=== PATIENT | female | born 2005 | race Caucasian/White ===

== ENCOUNTER 2024-12-14 21:05 | Inpatient (IN) | payer OTHER, SELFPAY ==
--- NOTE | 2024-12-14 20:12 | PCM.HP.OB ---
HPI - General General Date of Admission: 12/14/24 HPI Narrative ASHLEE MORENO, is a 19 F at 37 weeks gestation who presents for scheduled induction of labor for severe IUGR. EFW 2% AC <1%. ERLIN normal. Maternal Data Information DEYANIRA Calculator Estimated Delivery Date Method Current WG Current Estimate 01/04/25 Manual 37w 0d PFSH PFSH Medical History (Updated 12/14/24 @ 20:19 by Flor Garcia CNM) Wears glasses Anxiety Gastric reflux Non-smoker Cardiology follow-up encounter History of irregular heartbeat Tachycardia [place] Emotional problems Allergies Home Medications ?Medication ?Instructions ?Recorded ?Last Taken ?Type famotidine 20 mg tablet 20 mg PO QDAY 03/20/24 05/06/24 History sertraline 50 mg tablet 50 mg PO QDAY 03/20/24 Unknown History Allergy/AdvReac Type Severity Reaction Status Date / Time Sulfa (Sulfonamide Allergy Hives Verified 05/08/24 12:06 Antibiotics) Family History (Updated 03/20/24 @ 07:49 by Sherri Mccabe) Mother Depression Surgical History (Updated 05/08/24 @ 12:12 by Svitlana Brady) Hx of wisdom tooth extraction Social History (Updated 03/20/24 @ 08:48 by Sherri Mccabe) household members: spouse current occupational status: unemployed Smoking Status: Never smoker alcohol intake: never substance use type: does not use ROS Eyes Eyes: Denies blurry vision, change in vision or spots in vision ENT HEENT: Denies dizziness or headache(s) Cardiovascular Cardiovascular: Denies abdominal pain, chest pain or dyspnea Respiratory/Chest Respiratory/Chest: Denies cough, dyspnea, shortness of breath at rest or shortness of breath with exertion Gastrointestinal Gastrointestinal: Denies abdominal pain, diarrhea or vomiting Genitourinary Genitourinary: Denies change in urinary stream, difficulty urinating or dysuria Musculoskeletal Musculoskeletal: Reports none Integumentary Integumentary: Denies rash Neurologic Neurologic: Denies dizziness, headache(s), memory loss or weakness Psychiatric Psychiatric: Reports none Physical Exam Const alert, oriented x3 and no apparent distress General Appearance: cooperative Orientation / Consciousness: awake Exam Limitations: no limitations HEENT normocephalic Head and Scalp: normal to inspection Eyes General Eye: normal appearance of both eyes Neck full ROM and no lymphadenopathy Lymph Lymphatic: no lymphadenopathy noted Chest inspection of chest normal Resp normal respiratory effort, normal air movement and clear to auscultation bilaterally Effort and Inspection: able to speak in complete sentences and symmetric chest movement Cardio regular rate and regular rhythm GI normal to inspection, nondistended, normoactive bowel sounds Manual OB Exam: presentation cephalic Back/Spine normal ROM Extremity full ROM and no calf tenderness Skin no rashes or lesions noted General Skin Exam: no breakdown Neuro oriented x3 and CN's II-XII intact bilaterally Psych mental status grossly normal and thought process normal Labs Labs Labs: No Data to Display Assessment & Plan (1) GBS bacteriuria: (2) 37 weeks gestation of : (3) Encounter for induction of labor: (4) IUGR, : COMMENT: EFW 2% and AC <1% (5) Anxiety and depression: (6) Rh negative status during : PLAN: Plan CE - Closed / posterior Cytotec 25 mcg PO every 4 hours x 6 doses total GBS positive- PCN 5 million units IV x 1 dose followed by PCN 3 million units IV every [address] Neal notified of admission and is collaborating physician
[2024-12-14 21:14] VITALS: TEMP 36.8
[2024-12-14 21:22] VITALS: BP 142/84; PULSE 53; O2SAT 97
[2024-12-14 21:40] VITALS: BP 139/85; PULSE 47
[2024-12-14 22:06] LABS: Hematocrit 35.6 % (37-47); Hemoglobin 12.9 g/dL (12.0-15.0); Immature Granulocytes Count 0.030 X10^3/uL (0.0-0.0); Mean Corp Hgb Conc 36.2 g/dL (32-36); Mean Corpuscular Volume 88.3 fL (81-99); Mean Platelet Vol. 11.2 fl (6.2-12.0); NRBC Flagged by Analyzer 0 % (0-5); Platelet Count 215 K/mm3 (150-450); RBC Distribution Width CV 12.4 % (11.6-14.6); RBC Distribution Width SD 39.8 fl (35.1-43.9); Red Blood Count 4.03 M/mm3 (4.2-5.4); White Blood Count 9.2 K/mm3 (4.4-11.0)
[2024-12-14 22:09] VITALS: BMI 23.1
[2024-12-14 22:34] LABS: Syphilis Antibodies Nonreactive (Nonreactive)
--- OUTSIDE RECORDS SUMMARY | 2024-12-14 22:37 | XMS RPT_ITS | CCD ---
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 Name Role Phone Friend, Rohan Attending Unavailable Miedel, Lynda Primary Care Unavailable Miedel, Lynda Referring Unavailable Friend, Rohan Attending Unavailable Miedel, Lynda Primary Care Unavailable Miedel, Lynda Referring Unavailable Unavailable Primary Care Provider Unavaillena e HAURY, SUHAIL Referring Unavailable WISWELL, TIM Attending Unavailable WISWELL, TIM Referring Unavailable HAURY, SUHAIL Attending Unavailable HAURY, SUHAIL Referring Unavailable HAURY, SUHAIL Attending Unavailable HAURY, SUHAIL Referring Unavailable WISWELL, TIM Attending Unavailable HAURY, SUHAIL Referring Unavailable HAURY, SUHAIL Referring Unavailable HAURY, SUHAIL Referring Unavailable YISEL PUGA Attending Unavailable HAURY, SUHAIL Referring Unavailable GENEVIEVE MADDEN Attending Unavailable RADHA ELY Attending Unavailable HAURY, SUHAIL Attending Unavailable WISWELL, TIM Referring Unavailable Allergies Allergy Classification Reported Allergen(s) Allergy Type Date of Onset Reaction(s) Facility (2 sources) Sulfonamides (Antibiotic); Translations: [SULFA (SULFONAMIDE ANTIBIOTICS)] Drug allergy (disorder) 4 [facility] Repository (14 sources) Sulfonamides (Antibiotic) Drug Intolerance 4 [facility] Medications Current Medications Medication Drug Class(es) Dates Sig (Normalized) Sig (Original) famotidine 20 mg oral tablet (13 sources) Histamine-2 Receptor Antagonist Start: 05-11-2024 take 1 tablet by mouth every twelve hours as needed famotidine (PEPCID) 20 mg tablet Take 20 mg by mouth two times a day as needed. 05/11/2024 Active PNV no.95/ferrous fum/folic ac ( ORAL) (14 sources) PNV no.95/ferrou s fum/folic ac ( ORAL) Take by mouth. Active sertraline 50 mg oral tablet (14 sources) Serotonin Reuptake Inhibitor take 1 tablet by mouth once daily sertraline (ZOLOFT) 50 mg tablet Take 50 mg by mouth once daily. Active Completed/Discontinued Medications Medication Drug Class(es) Dates Sig (Normalized) Sig (Original) aspirin 81 mg delayed release oral tablet (6 sources) Platelet Aggregation Inhibitor, Nonsteroidal Anti-inflammatory Drug Start: 06-05-2024 End: 10-12-2024 take 1 tablet by mouth once daily aspirin, enteric coated (ECOTRIN LOW STRENGTH) 81 mg EC tablet Indications: with uncertain dates in first trimester (HCC) Take 1 tablet by mouth once daily. 90 tablet 3 06/05/2024 10/12/2024 Discontinued Problems Active Problems Problem Classification Problem Date Documented Da te Episodic/Chronic Esophageal disorders (1 source) Gastro-esophageal reflux disease without esophagitis; Translations: [Gastro-esophageal reflux disease without esophagitis] Onset: 03-30-2024 Chronic Genitourinary symptoms and ill-defined conditions (9 sources) Dysuria; Translations: [Dysuria] Onset: 11-27-2024 11-27-2024 Episodic Other complications of (4 sources) Uterine size for dates discrepancy; Translations: [Uterine size-date discrepancy, third trimester] 11-09-2024 Episodic Other complications of (1 source) Uterine size-date discrepancy, third trimester; Translations: [Uterine size-date discrepancy, third trimester ([facility])] Onset: 10-26-2024 Episodic Other complications of (1 source) Disorder of ; Translations: [Maternal care for other known or suspected poor growth, unspecified trimester, not applicable or unspecified] 12-12-2024 Episodic Other complications of (2 sources) Poor growth affecting management; Translations: [Maternal care for other known or suspected poor growth, third trimester, not applicable or unspecified] Onset: 12-13-2024 12-13-2024 Episodic Other female genital disorders (15 sources) Vulvodynia; Translations: [Vulvodynia, unspecified] Onset: 06-05-2024 06-05-2024 Chronic Other screening for suspected conditions (not mental disorders or infectious disease) (6 sources) Cancer cervix screening status; Translations: [Encounter for screening for malignant neoplasm of cervix] Onset: 10-12-2024 06-05-2024 Episodic Residual codes; unclassified (1 source) Gestation period, 9 weeks; Translations: [9 weeks gestation of ] 06-05-2024 Episodic Residual codes; unclassified (1 source) Gestation period, 13 weeks; Translations: [13 weeks gestation of ] 07-04-2024 Episodic Residual codes; unclassified (2 sources) Gestation period, 21 weeks; Translations: [21 weeks gestation of ] 08-24-2024 Episodic Residual codes; unclassified (1 source) Gestation period, 25 weeks; Translations: [25 weeks gestation of ] 09-22-2024 Episodic Residual codes; unclassified (1 source) Gestation period, 28 weeks; Translations: [28 weeks gestation of ] 10-12-2024 Episodic Residual codes; unclassified (2 sources) Gestation period, 32 weeks; Translations: [32 weeks gestation of ] 11-09-2024 Episodic Residual codes; unclassified (2 sources) Gestation period, 34 weeks; Translations: [34 weeks gestation of ] 11-27-2024 Episodic Residual codes; unclassified (1 source) 34 weeks gestation of ; Translations: [34 weeks gestation of (HCC)] Onset: 11-27-2024 Episodic Residual codes; unclassified (1 source) 32 weeks gestation of ; Translations: [32 weeks gestation of (HCC)] Onset: 11-09-2024 Episodic Residual codes; unclassified (1 source) 30 weeks gestation of ; Translations: [30 weeks gestation of (HCC)] Onset: 10-26-2024 Episodic Residual codes; unclassified (1 source) 25 weeks gestation of ; Translations: [25 weeks gestation of (HCC)] Onset: 10-12-2024 Episodic Residual codes; unclassified (1 source) 28 weeks gestation of ; Translations: [28 weeks gestation of (HCC)] Onset: 10-12-2024 Episodic Residual codes; unclassified (3 sources) Gestation period, 36 weeks; Translations: [36 weeks gestation of ] 12-12-2024 Episodic Past or Other Problems Problem Classification Problem Date Documented Da te Episodic/Chronic Other complications of (6 sources) Vomiting of , unspecified; Translations: [Unspecified vomiting of , unspecified as to episode of care or not applicable] Onset: 06-05-2024 06-05-2024 Episodic Other complications of (17 sources) Heartburn; Translations: [Other specified related conditions, first trimester] Onset: 06-05-2024 06-05-2024 Episodic Other complications of (17 sources) Diseases of the digestive system complicating , first trimester; Translations: [Other current conditions classifiable elsewhere of mother, antepartum condition or complication] Onset: 06-05-2024 06-05-2024 Episodic Other complications of (15 sources) RhD negative; Translations: [Other specified related conditions, unspecified trimester] Onset: 07-05-2024 07-05-2024 Episodic Other complications of (5 sources) 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 ; Translations: [Other mental disorders complicating , unspecified trimester] Onset: 06-05-2024 11-27-2024 Episodic Other complications of (1 source) Other specified related conditions, first trimester; Translations: [Heartburn during in first trimester (HCC)] Onset: 06-05-2024 Episodic Other complications of (1 source) Other specified related conditions, unspecified trimester; Translations: [Rh negative state in antepartum period (HCC)] Onset: 07-05-2024 Episodic Other gastrointestinal disorders (1 source) Constipation, unspecified; Translations: [Constipation during in first trimester ([facility])] Onset: 06-05-2024 Episodic Other gastrointestinal disorders (1 source) Heartburn; Translations: [Heartburn during in first trimester ([facility])] Onset: 06-05-2024 Episodic Other and delivery including normal (20 sources) Normal ; Translations: [Encounter for supervision of normal first , first trimester] Onset: 06-05-2024 06-05-2024 Episodic Residual codes; unclassified (1 source) Unspecified blood type, Rh negative; Translations: [Rh negative state in antepartum period ([facility])] Onset: 07-05-2024 Episodic Screening and history of mental health and substance abuse codes (12 sources) H/O: depression; Translations: [Personal history of other mental and behavioral disorders] Onset: 06-05-2024 06-05-2024 Episodic Unclassified (1 source) Constipation during in first trimester ([facility]) 11-27-2024 Results Test Name Value Interpretation Reference Range Facil ity nuchal translucency me asured by USon 12-12-2024 [facility] Radiology Study observation (narrative) [facility] URINE OB DIP B/Oon 5 Glucose Ql (U) Negative Neg mg/dL [facility] Interpretation and review of laboratory results Normal [facility] Protein.monoclonal (U) [Mass/Vol] 30 mg/dL Neg [facility] Bacteria Ur Culton 5 Bacteria identified Cx Nom (U) ORGANISM ID: 1 10,000 -<50,000 CFU/ml Streptococcus agalactiae (group b streptococcus) Susceptibility testing not performed on beta hemolytic streptococci due to predictable susceptibility to penicillin and other beta lactams. For testing, call Microbiology within 72 hours. Streptococcus agalactiae (Group B streptococcus) was identified in this specimen, which is clinically relevant if the individual is . Normal [facility] Comment on above: Performed By: #### 5 7021-8 #### [facility] CLIA [id number] [address] [place] [address] STATES OF [facility] UA DIP, URINE (POC)on 2024 BILIRUBIN UA (POCT) Negative Negative [facility] CLARITY UA (POCT) Clear [facility] COLOR UA (POCT) Yellow [facility] GLUCOSE UA (POCT) Negative Negative mg/dL [facility] Hemoglobin Ql (U) Negative Negative [facility] Interpretation and review of laboratory results Abnormal [facility] KETONE UA (POCT) Negative Negative mg/dL [facility] LEUKOCYTES UA (POCT) Trace Abnormal Negative [facility] NITRITE UA (POCT) Negative Negative [facility] PH UA (POCT) 6 4.5 - 8.0 [facility] Protein Ql (U) Negative Negative mg/dL [facility] SPECIFIC GRAVITY UA (POCT) 1.02 1.005 - 1.030 [facility] UROBILINOGEN UA (POCT) 0.2 Normal E.U./dL [facility] Location:[facility], [address] [place] [address], [place], [place], [id number] [place] [address] POINT OF CARE [facility] URINE OB DIP B/Oon 5 Glucose Ql (U) Negative Neg mg/dL [facility] Interpretation and review of laboratory results Normal [facility] Protein.monoclonal (U) [Mass/Vol] Negative Neg mg/dL [facility] Examination level ultrasound on 11-09-2024 [facility] Radiology Study observation (narrative) [facility] CBC W Auto Differential pane l (Bld)on 10-12-2024 Basophils (Bld) [#/Vol] 10*3/uL Normal <0.11 [facility] Comment on above: Order Comment: Speci men Type: BLOOD SPECIMEN Ordering Facility: [facility] Address: [address] [place] [address] Performed By: #### 5 7021-8 #### [facility] CLIA [id number] [address] [place] [address] [place] Basophils/100 WBC (Bld) 0.2 % Normal [facility] Comment on above: Order Comment: Speci men Type: BLOOD SPECIMEN Ordering Facility: [facility] Address: [address] [place] [address] Performed By: #### 5 7021-8 #### [facility] CLIA [id number] [address] [place] [address] [place] Differential cell count method Nom (Bld) Auto Normal [facility] Comment on above: Order Comment: Speci men Type: BLOOD SPECIMEN Ordering Facility: [facility] Address: [address] [place] [address] Performed By: #### 5 7021-8 #### [facility] CLIA [id number] [address] [place] [address] [place] Eosinophils (Bld) [#/Vol] 0.04 10*3/uL Normal <0.46 [facility] Comment on above: Order Comment: Speci men Type: BLOOD SPECIMEN Ordering Facility: [facility] Address: [address] [place] [address] Performed By: #### 5 7021-8 #### [facility] CLIA [id number] [address] [place] [address] [place] Eosinophils/100 WBC (Bld) 0.5 % Normal [facility] Comment on above: Order Comment: Speci men Type: BLOOD SPECIMEN Ordering Facility: [facility] Address: [address] [place] [address] Performed By: #### 5 7021-8 #### [facility] [id number] [address] [place] [address] [place] Erythrocyte distribution width (RBC) [Ratio] 13.2 % Normal 11.5-15.0 [facility] Comment on above: Order Comment: Speci men Type: BLOOD SPECIMEN Ordering Facility: [facility] Address: [address] [place] [address] Performed By: #### 5 7021-8 #### [facility] [id number] [address] [place] [address] [place] Hematocrit (Bld) [Volume fraction] 37.4 % Normal 36.0-46.0 [facility] Comment on above: Order Comment: Speci men Type: BLOOD SPECIMEN Ordering Facility: [facility] Address: [address] [place] [address] Performed By: #### 5 7021-8 #### [facility] [id number] [address] [place] [address] [place] Hemoglobin (Bld) [Mass/Vol] 13.2 g/dL Normal 11.5-15.5 [facility] Comment on above: Order Comment: Speci men Type: BLOOD SPECIMEN Ordering Facility: [facility] Address: [address] [place] [address] Performed By: #### 5 7021-8 #### [facility] [id number] [address] [place] [address] [place] Immature granulocytes (Bld) [#/Vol] 0.03 10*3/uL Normal <0.10 [facility] Comment on above: Order Comment: Speci men Type: BLOOD SPECIMEN Ordering Facility: [facility] Address: [address] [place] [address] Performed By: #### 5 7021-8 #### [facility] CLIA [id number] [address] [place] [address] [place] Immature granulocytes/100 WBC (Bld) 0.3 % Normal [facility] Comment on above: Order Comment: Speci men Type: BLOOD SPECIMEN Ordering Facility: [facility] Address: [address] [place] [address] Performed By: #### 5 7021-8 #### [facility] [id number] [address] [place] [address] [place] Lymphocytes (Bld) [#/Vol] 1.69 10*3/uL Normal 1.00-4.00 [facility] Comment on above: Order Comment: Speci men Type: BLOOD SPECIMEN Ordering Facility: [facility] Address: [address] [place] [address] Performed By: #### 5 7021-8 #### [facility] [id number] [address] [place] [address] [place] Lymphocytes/100 WBC (Bld) 19.2 % Normal [facility] Comment on above: Order Comment: Speci men Type: BLOOD SPECIMEN Ordering Facility: [facility] Address: [address] [place] [address] Performed By: #### 5 7021-8 #### [facility] [id number] [address] [place] [address] [place] MCH (RBC) [Entitic mass] 31.8 pg Normal 26.0-34.0 [facility] Comment on above: Order Comment: Speci men Type: BLOOD SPECIMEN Ordering Facility: [facility] Address: [address] [place] [address] Performed By: #### 5 7021-8 #### [facility] CLIA [id number] [address] [place] [address] [place] MCHC (RBC) [Mass/Vol] 35.3 g/dL Normal 30.5-36.0 [facility] Comment on above: Order Comment: Speci men Type: BLOOD SPECIMEN Ordering Facility: [facility] Address: [address] [place] [address] Performed By: #### 5 7021-8 #### [facility] CLIA [id number] [address] [place] [address] [place] MCV (RBC) [Entitic vol] 90.1 fL Normal 80.0-100.0 [facility] Comment on above: Order Comment: Speci men Type: BLOOD SPECIMEN Ordering Facility: [facility] Address: [address] [place] [address] Performed By: #### 5 7021-8 #### [facility] CLIA [id number] [address] [place] [address] [place] Monocytes (Bld) [#/Vol] 0.51 10*3/uL Normal <0.87 [facility] Comment on above: Order Comment: Speci men Type: BLOOD SPECIMEN Ordering Facility: [facility] Address: [address] [place] [address] Performed By: #### 5 7021-8 #### [facility] CLIA [id number] [address] [place] [address] [place] Monocytes/100 WBC (Bld) 5.8 % Normal [facility] Comment on above: Order Comment: Speci men Type: BLOOD SPECIMEN Ordering Facility: [facility] Address: [address] [place] [address] Performed By: #### 5 7021-8 #### [facility] CLIA [id number] [address] [place] [address] [place] Neutrophils (Bld) [#/Vol] 6.51 10*3/uL Normal 1.45-7.50 [facility] Comment on above: Order Comment: Speci men Type: BLOOD SPECIMEN Ordering Facility: [facility] Address: [address] [place] [address] Performed By: #### 5 7021-8 #### [facility] CLIA [id number] [address] [place] [address] [place] Neutrophils/100 WBC (Bld) 74.0 % Normal [facility] Comment on above: Order Comment: Speci men Type: BLOOD SPECIMEN Ordering Facility: [facility] Address: [address] [place] [address] Performed By: #### 5 7021-8 #### [facility] CLIA [id number] [address] [place] [address] [place] Nucleated RBC (Bld) [#/Vol] 10*3/uL Normal <0.01 [facility] Comment on above: Order Comment: Speci men Type: BLOOD SPECIMEN Ordering Facility: [facility] Address: [address] [place] [address] Performed By: #### 5 7021-8 #### [facility] [id number] [address] [place] [address] [place] Nucleated RBC/100 WBC (Bld) [Ratio] 0.0 /100 WBC Normal [facility] Comment on above: Order Comment: Speci men Type: BLOOD SPECIMEN Ordering Facility: [facility] Address: [address] [place] [address] Performed By: #### 5 7021-8 #### [facility] [id number] [address] [place] [address] [place] Platelet mean volume (Bld) [Entitic vol] 10.5 fL Normal 9.0-12.7 [facility] Comment on above: Order Comment: Speci men Type: BLOOD SPECIMEN Ordering Facility: [facility] Address: [address] [place] [address] Performed By: #### 5 7021-8 #### [facility] CLIA [id number] [address] [place] [address] [place] Platelets (Bld) [#/Vol] 239 10*3/uL Normal 150-400 [facility] Comment on above: Order Comment: Speci men Type: BLOOD SPECIMEN Ordering Facility: [facility] Address: [address] [place], [place] [address] Performed By: #### 5 7021-8 #### [facility] CLIA [id number] [address] [place] [address] [place] RBC (Bld) [#/Vol] 4.15 10*6/uL Normal 3.90-5.20 [facility] Comment on above: Order Comment: Speci men Type: BLOOD SPECIMEN Ordering Facility: [facility] Address: [address] [place] [address] Performed By: #### 5 7021-8 #### [facility] CLIA [id number] [address] [place] [address] [place] WBC (Bld) [#/Vol] 8.80 10*3/uL Normal 3.70-11.00 [facility] Comment on above: Order Comment: Speci men Type: BLOOD SPECIMEN Ordering Facility: [facility] Address: [address] [place] [address] Performed By: #### 5 7021-8 #### [facility] CLIA [id number] [address] [place] [address] [place] GESTATIONAL GLUCOSE SCREEN, 1-HOUR, 50 GRAM, NON-FASTINGon 10-12-2024 Glucose [Mass/Vol] 80 mg/dL Normal 74-134 [facility] Comment on above: Order Comment: Speci men Type: BLOOD SPECIMEN Ordering Facility: [facility] Address: [address] [place] [address] Result Comment: [facility] Congress of Obstetricians and Gynecologists (Perez/Anayeli) guidelines state a gestational diabetes mellitus positive screen is made, in women not previously diagnosed with overt diabetes, when the 1 hr plasma glucose level is equal to or above 140 mg/dL. [facility] [employer] [facility] [employer] recommends a 135 mg/dL cutoff. Performed By: #### G LTGST #### [facility] CLIA [id number] [address] [place] [address] [place] Reagin and Treponema pallidu m IgG and IgM [Interp]on 10-12-2024 T. pallidum IgG+IgM IA Ql (S) Non-Reactive Normal Nonreactive [facility] Comment on above: Order Comment: Speci men Type: BLOOD SPECIMEN Ordering Facility: [facility] Address: [address] [place] [address] Performed By: #### 7 3752-8 #### [facility] CLIA [id number] [address] [place] [address] [place] Reagin+T pallidum IgG+IgM Se rPl-Impon 10-12-2024 Reagin and Treponema pallidum IgG and IgM [Interp] Cannot exclude recent Treponemal infection if specimen collected within 7-10 days after appearance of suspect lesions or 2-3 weeks after an exposure. Clinical correlation is required. Normal [facility] Comment on above: Order Comment: Speci men Type: BLOOD SPECIMEN Ordering Facility: [facility] Address: [address] [place] [address] Performed By: #### 7 3752-8 #### [facility] CLIA [id number] [address] [place] [address] [place] TYPE + SCREEN PRENATALon ABO O Normal [facility] Comment on above: Order Comment: Speci men Type: BLOOD SPECIMEN Ordering Facility: [facility] Address: [address] [place] [address] Performed By: #### 5 7021-8 #### [facility] CLIA [id number] [address] [place] [address] Rh Nom (Bld) Negative Normal [facility] Comment on above: Order Comment: Speci men Type: BLOOD SPECIMEN Ordering Facility: [facility] Address: [address] [place] [address] Performed By: #### 5 7021-8 #### [facility] CLIA [id number] [address] [place] [address] TYPE AND SCREEN EXPIRATION 10/15/2024 23:59 Normal [facility] Comment on above: Order Comment: Speci men Type: BLOOD SPECIMEN Ordering Facility: [facility] Address: [address] [place] [address] Performed By: #### 5 7021-8 #### [facility] CLIA [id number] [address] [place] [address] Examination level ultrasound on 08-24-2024 Indication Standard anatomic survey Impression REMOTE READ The patient is referred for a standard anatomic survey. - Single, live, intrauterine . - biometry is consistent with the established gestational age. - No malformations were visualized on a complete standard anatomic survey. - The amniotic fluid volume is normal amount. - The placenta is anterior, fundal. - The Transabdominal cervical length measures 31.9 mm with no evidence of funneling or other dynamic changes. - Not all structural malformations can be detected by ultrasound examination. Recommendations Additional follow-up as clinically indicated. Maternal Assessment Height 163 cm Height (ft) 5 ft Height (in) 4 in Physical Exam Initial weight (lb) 113 lb Initial BMI 19.40 kg/m Maternal assessment other: 1 Para 0 Method Transabdominal ultrasound examination. View: Adequate visualization Plata . Number of fetuses: 1 Dating LMP on: 03/30/2024 GA by LMP 21 w + 0 d DEYANIRA by LMP: 01/04/2025 GA by prior assessment 21 w + 0 d DEYANIRA by prior assessment: 01/04/2025 Ultrasound examination on: 08/24/2024 GA by U/S based upon: AC, BPD, Femur, HC GA by U/S 21 w + 3 d DEYANIRA by U/S: 01/01/2025 Assigned: based on stated DEYANIRA, selected on 08/24/2024 Assigned GA 19 w + 0 d Assigned DEYANIRA: 01/04/2025 General Evaluation Cardiac activity present. FHR 138 bpm. movements: present. Presentation: breech Placenta: Placental site: anterior, fundal Umbilical cord: Cord vessels: 3 vessel cord Amniotic fluid: Amount of AF: normal amount. MVP 5.6 cm Growth Overview Exam date GA BPD (mm) HC (mm) AC (mm) FL (mm) HL (mm) EFW (g) 08/24/2024 21w 0d 49.6 49% 189.9 58% 167.9 69% 35.6 74% 34.8 77% 429 71% Biometry Standard BPD 49.6 mm 21w 0d 49% Hadlock OFD 69.0 mm 21w 4d 91% Nicolaides HC 189.9 mm 21w 2d 58% Chinedu Cerebellum tr 23.4 mm 21w 4d 82% Hill Nuchal fold 3.7 mm AC 167.9 mm 21w 6d 69% Hadlock Femur 35.6 mm 21w 3d 74% Chinedu Humerus 34.8 mm 21w 6d 77% Chinedu EFW 429 g 21w 3d 71% Hadlock EFW (lb) 0 lb EFW (oz) 15 oz EFW by: Hadlock (HC-AC-FL) Extended Pool Table Mechanic 7.6 mm CM 5.0 mm 41% Nicolaides Extremities / Bony Struc FL / HC 0.19 42% Hadlock Other Structures FHR 138 bpm Anatomy Cranium: normal Lateral ventricles: normal Choroid plexus: normal Midline falx: normal Cavum septi pellucidi: normal Cerebellum: normal Cisterna magna: normal Head / Neck Vermis: Normal but not required for a standard anatomy exam Neck: Normal but not required for a standard anatomy exam Nuchal fold: Normal but not required for a standard anatomy exam Lips: normal Profile: Normal but not required for a standard anatomy exam Nose: Normal but not required for a standard anatomy exam Face Maxilla: Normal but not required for a standard anatomy exam Mandible: Normal but not required for a standard anatomy exam Orbits: Normal but not required for a standard anatomy exam Lens: Normal but not required for a standard anatomy exam 4-chamber view: normal RVOT view: normal LVOT view: normal 3-vessel view: normal 5-jkwpsx-llluiav view: normal Heart / Thorax Situs: situs solitus (normal) Aortic arch view: Normal but not required for a standard anatomy exam SVC: Normal but not required for a standard anatomy exam IVC: Normal but not required for a standard anatomy exam Cardiac axis: normal Rt lung: Normal but not required for a standard anatomy exam Lt lung: Normal but not required for a standard anatomy exam Diaphragm: Normal but not required for a standard anatomy exam Cord insertion: normal Stomach: normal Kidneys: normal Bladder: normal Genitals: normal Abdomen Abdom. wall: normal Cervical spine: normal Thoracic spine: normal Lumbar spine: normal Sacral spine: normal Arms: normal Legs: normal Rt upper arm: normal Rt forearm: normal Rt hand: normal Rt fingers: normal Lt upper arm: normal Lt forearm: normal Lt hand: normal Lt fingers: normal Rt upper leg: normal Rt lower leg: normal Rt foot: normal Lt upper leg: normal Lt lower leg: normal Lt foot: normal Gender: Unspecified Wants to know sex: no Maternal Structures Uterus / Cervix Uterus: Visualized Cervix: Visualized Approach: Transabdominal Cervical length 31.9 mm Other: Patient declined transvaginal ultrasound for cervical length. Ovaries / Tubes / Adnexa Rt ovary: Visualized Lt ovary: Visualized Performed By: Carolynn Orellana RDMS, RVT Read By: Rosa Isela Patrick M.D. MATERNAL MEDICINE [facility] Radiology Study observation (narrative) [facility] CBC W Auto Differential pane l (Bld)on 07-04-2024 Basophils (Bld) [#/Vol] 10*3/uL Normal <0.11 [facility] Comment on above: Order Comment: Speci men Type: BLOOD SPECIMEN Ordering Facility: [facility] Address: [address] [place] [address] Performed By: #### 5 7021-8 #### [facility] CLIA [id number] [address] [place] [address] [place] Basophils/100 WBC (Bld) 0.2 % Normal [facility] Comment on above: Order Comment: Speci men Type: BLOOD SPECIMEN Ordering Facility: [facility] Address: [address] [id number] Performed By: #### 5 7021-8 #### [facility] CLIA [id number] [address] [place] [address] [place] Differential cell count method Nom (Bld) Auto Normal [facility] Comment on above: Order Comment: Speci men Type: BLOOD SPECIMEN Ordering Facility: [facility] Address: [address] [place] [address] Performed By: #### 5 7021-8 #### [facility] CLIA [id number] [address] [place] [address] [place] Eosinophils (Bld) [#/Vol] 0.09 10*3/uL Normal <0.46 [facility] Comment on above: Order Comment: Speci men Type: BLOOD SPECIMEN Ordering Facility: [facility] Address: [address] [place] [address] Performed By: #### 5 7021-8 #### [facility] CLIA [id number] [address] [place] [address] [place] Eosinophils/100 WBC (Bld) 0.9 % Normal [facility] Comment on above: Order Comment: Speci men Type: BLOOD SPECIMEN Ordering Facility: [facility] Address: [address] [place] [address] Performed By: #### 5 7021-8 #### [facility] CLIA [id number] [address] [place] [address] [place] Erythrocyte distribution width (RBC) [Ratio] 13.0 % Normal 11.5-15.0 [facility] Comment on above: Order Comment: Speci men Type: BLOOD SPECIMEN Ordering Facility: [facility] Address: [address] [place] [address] Performed By: #### 5 7021-8 #### [facility] CLIA [id number] [address] [place] [address] [place] Hematocrit (Bld) [Volume fraction] 36.1 % Normal 36.0-46.0 [facility] Comment on above: Order Comment: Speci men Type: BLOOD SPECIMEN Ordering Facility: [facility] Address: [address] [place] [address] Performed By: #### 5 7021-8 #### [facility] CLIA [id number] [address] [place] [address] [place] Hemoglobin (Bld) [Mass/Vol] 12.7 g/dL Normal 11.5-15.5 [facility] Comment on above: Order Comment: Speci men Type: BLOOD SPECIMEN Ordering Facility: [facility] Address: [address] [place] [address] Performed By: #### 5 7021-8 #### [facility] CLIA [id number] [address] [place] [address] [place] Immature granulocytes (Bld) [#/Vol] 0.03 10*3/uL Normal <0.10 [facility] Comment on above: Order Comment: Speci men Type: BLOOD SPECIMEN Ordering Facility: [facility] Address: [address] [place] [address] Performed By: #### 5 7021-8 #### [facility] CLIA [id number] [address] [place] [address] [place] Immature granulocytes/100 WBC (Bld) 0.3 % Normal [facility] Comment on above: Order Comment: Speci men Type: BLOOD SPECIMEN Ordering Facility: [facility] Address: [address] [place] [address] Performed By: #### 5 7021-8 #### [facility] CLIA [id number] [address] [place] [address] [place] Lymphocytes (Bld) [#/Vol] 1.80 10*3/uL Normal 1.00-4.00 [facility] Comment on above: Order Comment: Speci men Type: BLOOD SPECIMEN Ordering Facility: [facility] Address: [address] [place], [place] [id number] Performed By: #### 5 7021-8 #### [facility] CLIA [id number] [address] [place] [address] Lymphocytes/100 WBC (Bld) 18.0 % Normal [facility] Comment on above: Order Comment: Speci men Type: BLOOD SPECIMEN Ordering Facility: [facility] Address: [address] [place] [address] Performed By: #### 5 7021-8 #### [facility] CLIA [id number] [address] [place] [address] [place] MCH (RBC) [Entitic mass] 30.5 pg Normal 26.0-34.0 [facility] Comment on above: Order Comment: Speci men Type: BLOOD SPECIMEN Ordering Facility: [facility] Address: [address] [place] [address] Performed By: #### 5 7021-8 #### [facility] CLIA [id number] [address] [place] [address] [place] MCHC (RBC) [Mass/Vol] 35.2 g/dL Normal 30.5-36.0 [facility] Comment on above: Order Comment: Speci men Type: BLOOD SPECIMEN Ordering Facility: [facility] Address: [address] [place] [address] Performed By: #### 5 7021-8 #### [facility] CLIA [id number] [address] [place] [address] [place] MCV (RBC) [Entitic vol] 86.8 fL Normal 80.0-100.0 [facility] Comment on above: Order Comment: Speci men Type: BLOOD SPECIMEN Ordering Facility: [facility] Address: [address] [place] [address] Performed By: #### 5 7021-8 #### [facility] CLIA [id number] [address] [place] [address] [place] Monocytes (Bld) [#/Vol] 0.45 10*3/uL Normal <0.87 [facility] Comment on above: Order Comment: Speci men Type: BLOOD SPECIMEN Ordering Facility: [facility] Address: [address] [place] [address] Performed By: #### 5 7021-8 #### [facility] CLIA [id number] [address] [place] [address] [place] Monocytes/100 WBC (Bld) 4.5 % Normal [facility] Comment on above: Order Comment: Speci men Type: BLOOD SPECIMEN Ordering Facility: [facility] Address: [address] [place] [address] Performed By: #### 5 7021-8 #### [facility] CLIA [id number] [address] [place] [address] [place] Neutrophils (Bld) [#/Vol] 7.62 10*3/uL High 1.45-7.50 [facility] Comment on above: Order Comment: Speci men Type: BLOOD SPECIMEN Ordering Facility: [facility] Address: [address] [place] [address] Performed By: #### 5 7021-8 #### [facility] CLIA [id number] [address] [place] [address] [place] Neutrophils/100 WBC (Bld) 76.1 % Normal [facility] Comment on above: Order Comment: Speci men Type: BLOOD SPECIMEN Ordering Facility: [facility] Address: [address] [place] [address] Performed By: #### 5 7021-8 #### [facility] CLIA [id number] [address] [place] [address] [place] Nucleated RBC (Bld) [#/Vol] 10*3/uL Normal <0.01 [facility] Comment on above: Order Comment: Speci men Type: BLOOD SPECIMEN Ordering Facility: [facility] Address: [address] [place] [address] Performed By: #### 5 7021-8 #### [facility] CLIA [id number] [address] [place] [address] [place] Nucleated RBC/100 WBC (Bld) [Ratio] 0.0 /100 WBC Normal [facility] Comment on above: Order Comment: Speci men Type: BLOOD SPECIMEN Ordering Facility: [facility] Address: [address] [place] [address] Performed By: #### 5 7021-8 #### [facility] CLIA [id number] [address] [place] [address] [place] Platelet mean volume (Bld) [Entitic vol] 9.5 fL Normal 9.0-12.7 [facility] Comment on above: Order Comment: Speci men Type: BLOOD SPECIMEN Ordering Facility: [facility] Address: [address] [place] [address] Performed By: #### 5 7021-8 #### [facility] CLIA [id number] [address] [place] [address] [place] Platelets (Bld) [#/Vol] 231 10*3/uL Normal 150-400 [facility] Comment on above: Order Comment: Speci men Type: BLOOD SPECIMEN Ordering Facility: [facility] Address: [address] [place] [address] Performed By: #### 5 7021-8 #### [facility] CLIA [id number] [address] [place] [address] [place] RBC (Bld) [#/Vol] 4.16 10*6/uL Normal 3.90-5.20 [facility] Comment on above: Order Comment: Speci men Type: BLOOD SPECIMEN Ordering Facility: [facility] Address: [address] [place] [address] Performed By: #### 5 7021-8 #### [facility] CLIA [id number] [address] [place] [address] [place] WBC (Bld) [#/Vol] 10.01 10*3/uL Normal 3.70-11.00 [facility] Comment on above: Order Comment: Speci men Type: BLOOD SPECIMEN Ordering Facility: [facility] Address: [address] [place] [address] Performed By: #### 5 7021-8 #### [facility] CLIA [id number] [address] [place] [address] [place] HBV surface Ag Ser Qlon 06-08 HBV surface Ag Ql (S) Negative Normal Negative [facility] Comment on above: Order Comment: Speci men Type: BLOOD SPECIMEN Ordering Facility: [facility] Address: [address] [place] [address] Performed By: #### 5 195-3, 91086-8, 70881-0 #### [facility] CLIA [id number] [address] [place] [address] [place] HCV Ab Ser Qlon 07-04-2024 HCV Ab Ql (S) Negative Normal Negative [facility] Comment on above: Order Comment: Speci men Type: BLOOD SPECIMEN Ordering Facility: [facility] Address: [address] [place] [address] Result Comment: The result suggests no evidence of active infection with Hepatitis C virus. Should recent infection be suspected, repeat testing may be considered 4-6 weeks after this draw. Performed By: #### 5 7021-8 #### [facility] CLIA [id number] [address] [place] [address] [place] HIV 1+2 Ab IA Qlon HIV 1 and 2 Ab IA.rapid Nom (S/P/Bld) Normal [facility] Comment on above: Order Comment: Speci men Type: BLOOD SPECIMEN Ordering Facility: [facility] Address: [address] [place] [address] Result Comment: Test not indicated. Performed By: #### 5 195-3, 82876-8, 50564-4 #### [facility] CLIA [id number] [address] [place] [address] [place] HIV 1+2 Ab+HIV1 p24 Ag IA Ql Non-Reactive Normal Nonreactive [facility] Comment on above: Order Comment: Speci men Type: BLOOD SPECIMEN Ordering Facility: [facility] Address: [address] [place] [address] Performed By: #### 5 195-3, 99478-6, 67406-4 #### [facility] CLIA [id number] [address] [place] [address] [place] HIV immunoassay testing algorithm interpretation (S/P/Bld) [Interp] Normal [facility] Comment on above: Order Comment: Speci men Type: BLOOD SPECIMEN Ordering Facility: [facility] Address: [address] [place] [address] Result Comment: No e vidence of HIV-1 or HIV-2 infection. Should recent infection be suspected, repeat testing may be considered 2-3 weeks after this draw. [place] Rev. Code 3701.243(E): This information has been disclosed to you from confidential records protected from disclosure by state law. ???You shall make no further disclosure of this information without the specific, written, and informed release of the individual to whom it pertains or as otherwise permitted by state law. A general authorization for the release of medical or other information is not sufficient for the purpose of the release of HIV test results or diagnoses. Performed By: #### 5 195-3, 75319-7, 11760-5 #### [facility] CLIA [id number] [address] [place] [address] [place] HbA1c (Bld)on 07-04-2024 Average glucose Estimated from glycated hemoglobin (Bld) [Mass/Vol] 85 mg/dL Normal [facility] Comment on above: Order Comment: Speci men Type: BLOOD SPECIMEN Ordering Facility: [facility] Address: [address] [place] [address] Result Comment: eAG: (Estimated average glucose) is a calculated value from HgbA1c and is claim representative of the average blood glucose level in the last 2-3 month period. Performed By: #### 5 5454-3 #### [facility] CLIA [id number] [address] [place] [address] [place] HbA1c (Bld) [Mass fraction] 4.6 % Normal 4.3-5.6 [facility] Comment on above: Order Comment: Speci [facility] Type: BLOOD SPECIMEN Ordering Facility: [facility] Address: [address] [place] [address] Result Comment: [place] Diabetes Association guidelines indicate that patients with HgbA1c in the range 5.7-6.4% are at increased risk for development of diabetes, and intervention by lifestyle modification may be beneficial. HgbA1c greater or equal to 6.5% is considered diagnostic of diabetes. Performed By: #### 5 5454-3 #### [facility] CLIA [id number] [address] [place] [address] [place] RUBELLA IGG ANTIBODYon 07-04 RUBELLA IGG AB, QUAL Positive Normal Positive [facility] Comment on above: Order Comment: Speci [facility] Type: BLOOD SPECIMEN Ordering Facility: [facility] Address: [address] [place] [address] Result Comment: The result suggests recent or past exposure to Rubella virus or history of Rubella vaccination. Positive result may also be seen due to presence of passively-transferred antibodies. Please correlate with patient's history. Performed By: #### R UBIGG #### [facility] CLIA [id number] [address] [place] [address] [place] Reagin and Treponema pallidu m IgG and IgM [Interp]on 07-04-2024 T. pallidum IgG+IgM IA Ql (S) Non-Reactive Normal Nonreactive [facility] Comment on above: Order Comment: Speci men Type: BLOOD SPECIMEN Ordering Facility: [facility] Address: [address] [place] [address] Performed By: #### 5 195-3, 76203-2, 35897-7 #### [facility] CLIA [id number] [address] [place] [address] [place] Reagin+T pallidum IgG+IgM Se rPl-Impon 07-04-2024 Reagin and Treponema pallidum IgG and IgM [Interp] Cannot exclude recent Treponemal infection if specimen collected within 7-10 days after appearance of suspect lesions or 2-3 weeks after an exposure. Clinical correlation is required. Normal [facility] Comment on above: Order Comment: Speci men Type: BLOOD SPECIMEN Ordering Facility: [facility] Address: [address] [place] [address] Performed By: #### 5 195-3, 35777-6, 46759-0 #### [facility] CLIA [id number] [address] [place] [address] [place] TYPE + SCREEN PRENATALon ABO O Normal [facility] Comment on above: Order Comment: Speci men Type: BLOOD SPECIMEN Ordering Facility: [facility] Address: [address] [place] [address] Performed By: #### T SPN #### [facility] CLIA [id number] [address] [place] [address] [place] Rh Nom (Bld) Negative Normal [facility] Comment on above: Order Comment: Speci men Type: BLOOD SPECIMEN Ordering Facility: [facility] Address: [address] [place] [address] Performed By: #### T SPN #### [facility] CLIA [id number] [address] [place] [address] [place] TYPE AND SCREEN EXPIRATION 07/07/2024 23:59 Normal [facility] Comment on above: Order Comment: Speci men Type: BLOOD SPECIMEN Ordering Facility: [facility] Address: [address] [place] [address] Performed By: #### T SPN #### [facility] CLIA [id number] [address] [place] [address] [place] C. trachomatis+N. gonorrhoea e DNA VEL+probe Ql (Unsp spec)on 06-05-2024 C. trachomatis rRNA VEL+probe Ql (Unsp spec) Not detected Normal Not detected [facility] Comment on above: Order Comment: Speci men Type: SWAB Ordering Facility: [facility] Address: [address] [place] [address] Performed By: #### 3 6902-5 #### [facility] CLIA [id number] [address] [place] [address] [place] N. gonorrhoeae rRNA VEL+probe Ql (Unsp spec) Not detected Normal Not detected [facility] Comment on above: Order Comment: Speci men Type: SWAB Ordering Facility: [facility] Address: [address] [place] [address] Performed By: #### 3 6902-5 #### [facility] CLIA [id number] [address] [place] [address] [place] POC LIGHT CLEANER ULTRASOUNDon 06-05-20 24 Indication Viability; confirm cardiac activity Impression Single intrauterine gestational sac, CRL is appropriate for clinical dates, corresponding to DEYANIRA 01/04/25 cardiac activity is visualized Recommendations Follow up for NT scan if desired Method Transabdominal ultrasound examination. View: Adequate visualization Plata . Number of embryos: 1 Dating LMP on: 03/30/2024 GA by LMP 9 w + 4 d DEYANIRA by LMP: 01/04/2025 Ultrasound examination on: 06/05/2024 GA by U/S based upon: CRL GA by U/S 9 w + 6 d DEYANIRA by U/S: 01/02/2025 Assigned: based on the LMP, selected on 06/05/2024 Assigned GA 9 w + 4 d Assigned DEYANIRA: 01/04/2025 Biometry Standard CRL 30.0 mm 9w 6d 75% Hadlock Assessment Gestational sac: visualized Location: intrauterine Yolk sac: uncertain Embryo: visualized CRL 30.0 mm 9w 6d 75% Hadlock Cardiac activity: present General Evaluation Cardiac activity present Performed By: Suhail Swift NP Read By: Suhail Swift NP MATERNAL MEDICINE [facility] Radiology Study observation (narrative) [facility] Gastroenterology Visit Repor ton 03-30-2024 Gastroenterology Visit Report [facility] [address] [place] [address] OFFICE VISIT Date of Service: 03/30/24 MR#: [id number] Acct: [id number] Name: ASHLEE MORENO Rep #: [id number] : 2005 Provider: Rohan Buckley DO Age/Sex: 19/F Location: [facility] Status: Signed Intake Intake Visit Reasons: Gastroesophageal reflux disease (GERD) Allergies Sulfa (Sulfonamide Antibiotics) Allergy (Verified 03/20/24 07:43) Hives Medications ???Medication ???Instructions ???Recorded ???Confirmed ???Type famotidine 20 mg tablet 20 mg PO QDAY 03/20/24 03/30/24 History sertraline 50 mg tablet 50 mg PO QDAY 03/20/24 03/30/24 History PFSH Medical History (Updated 03/20/24 @ 08:51 by Sherri Mccabe) Tachycardia [place] Emotional problems Allergies Family History (Updated 03/20/24 @ 07:49 by Sherri Mccabe) Mother Depression Social History (Updated 03/20/24 @ 08:48 by Sherri Mccabe) household members: spouse current occupational status: unemployed Smoking Status: Never smoker alcohol intake: never substance use type: does not use HPI HPI Details: ASHLEE MORENO, is a 19 F who presents to the office today for initial consult. *BGI established 03.30.24 pt reports GERD symptoms for the past year; daily HB. Has tried Omeprazole and Famotidine, neither have been effective. Pt reports she has never had an EGD. Exam Const General: cooperative and comfortable Nutritional Appearance: average body habitus and well nourished HENMT Head: normal to inspection Ears: hearing grossly normal bilaterally Nose: external nose normal Face and sinus: normal facial exam Mouth: oral mucosae normal Throat: posterior oropharynx normal Eyes General: appearance normal, both eyes and all related structures Neck Neck: normal visual inspection Chest Chest palpation inspection: normal inspection of the chest and normal palpation of entire chest wall Resp Effort Inspection: normal respiratory effort Auscultation: Bilateral: Clear to Auscultation Cardio Palpation: normal PMI Rate: regular rate Rhythm: regular rhythm GI Inspection: normal to inspection Auscultation: normal bowel sounds Percussion: normal to percussion Palpation: no hepatosplenomegaly Skin General: no rashes or lesions noted Neuro General: patient alert Extrem General: normal to inspection Psych Affect: normal affect Assessment and Plan Assessment and Plan (1) GERD (gastroesophageal reflux disease): Status: Acute Plan: Very pleasant 19-year-old with gastroesophageal reflux disease that has been refractory to famotidine. He does have a mother who has a history of reflux disease and hiatal hernia. She does get occasional trouble swallowing. But is not on a daily basis. She denies any chest pain or shortness of breath. Differential diagnosis does include gastroparesis, erosive esophagitis, eosinophilic esophagitis, hiatal hernia, bile induced esophagitis. She will undergo an upper endoscopy with Griffin pH study. She was explained alternatives, risk, benefits include not withstanding bleeding, infection, sepsis, perforation, need for emergent surgery . She will have an ASA of 3. Coding Level of Care Code Off vis,new,level 3 Diagnoses GERD (gastroesophageal reflux disease) K21.9 03/30/24 1644 Date Rohan Friend DO Chloe Signature: Date (if applicable) CC: Normal [facility] Vital Signs Date Time Vital Sign Value Performing Clinician Selam luz 12-13-2024 13:05-0400 Body mass index (BMI) [Ratio] 21.48 kg/m2 Genevieve Madden MD Work Phone: [facility] 12-13-2024 13:05-0400 Body weight 57.42 kg Genevieve Madden MD Work Phone: [facility] 12-13-2024 13:05-0400 Diastolic blood pressure 64 mm[Hg] Genevieve Madden MD Work Phone: [facility] 12-13-2024 13:05-0400 Systolic blood pressure 112 mm[Hg] Genevieve Madden MD Work Phone: [facility] 12-12-2024 14:46-0400 Body mass index (BMI) [Ratio] 21.48 kg/m2 Radha Ely MD Work Phone: [facility] 12-12-2024 14:46-0400 Body weight 57.42 kg Radha Ely MD Work Phone: [facility] 12-12-2024 14:46-0400 Diastolic blood pressure 60 mm[Hg] Radha Ely MD Work Phone: [facility] 12-12-2024 14:46-0400 Systolic blood pressure 102 mm[Hg] Radha Ely MD Work Phone: [facility] 11-27-2024 13:05-0400 Body mass index (BMI) [Ratio] 21.54 kg/m2 Yisel Puga APRN.CNM Work Phone: [facility] 11-27-2024 13:05-0400 Body weight 57.61 kg Yisel Puga APRN.CNM Work Phone: [facility] 11-27-2024 13:05-0400 Diastolic blood pressure 64 mm[Hg] Yisel Puga APRN.CNM Work Phone: [facility] 11-27-2024 13:05-0400 Systolic blood pressure 112 mm[Hg] Yisel Edd MELGOZAN.CNM Work Phone: [facility] 11-09-2024 10:42-0400 Body mass index (BMI) [Ratio] 21.2 kg/m2 Suhail Swift APRN.NUCLEAR LICENSING ENGINEER Work Phone: [facility] 11-09-2024 10:42-0400 Body weight 56.7 kg Suhail Haury NARRATIVE WRITER.NUCLEAR LICENSING ENGINEER Work Phone: [facility] 11-09-2024 10:42-0400 Diastolic blood pressure 64 mm[Hg] Suhail Haury NARRATIVE WRITER.NUCLEAR LICENSING ENGINEER Work Phone: [facility] 11-09-2024 10:42-0400 Systolic blood pressure 106 mm[Hg] Suhail Haury NARRATIVE WRITER.NUCLEAR LICENSING ENGINEER Work Phone: [facility] 10-12-2024 10:39-0400 Body mass index (BMI) [Ratio] 20.32 kg/m2 Suhail Haury NARRATIVE WRITER.NUCLEAR LICENSING ENGINEER Work Phone: [facility] 10-12-2024 10:39-0400 Body weight 54.34 kg Suhail Haury NARRATIVE WRITER.NUCLEAR LICENSING ENGINEER Work Phone: [facility] 10-12-2024 10:39-0400 Diastolic blood pressure 80 mm[Hg] Suhail Haury NARRATIVE WRITER.NUCLEAR LICENSING ENGINEER Work Phone: [facility] 10-12-2024 10:39-0400 Systolic blood pressure 120 mm[Hg] Suhail Haury NARRATIVE WRITER.NUCLEAR LICENSING ENGINEER Work Phone: [facility] 09-22-2024 13:21-0400 Body mass index (BMI) [Ratio] 20.32 kg/m2 Genevieve Madden MD Work Phone: [facility] 09-22-2024 13:21-0400 Body weight 54.34 kg Genevieve Madden MD Work Phone: [facility] 09-22-2024 13:21-0400 Diastolic blood pressure 60 mm[Hg] Genevieve Madden MD Work Phone: [facility] 09-22-2024 13:21-0400 Systolic blood pressure 100 mm[Hg] Genevieve Madden MD Work Phone: [facility] 08-24-2024 08:57-0400 Body mass index (BMI) [Ratio] 19.78 kg/m2 Tim Neal MD Work Phone: [facility] 08-24-2024 08:57-0400 Body weight 52.89 kg Tim Neal MD Work Phone: [facility] 08-24-2024 08:57-0400 Diastolic blood pressure 60 mm[Hg] Tim Neal MD Work Phone: [facility] 08-24-2024 08:57-0400 Systolic blood pressure 100 mm[Hg] Tim Neal MD Work Phone: [facility] 07-04-2024 10:06-0500 Body mass index (BMI) [Ratio] 19.17 kg/m2 Radha Ely MD Work Phone: [facility] 07-04-2024 10:06-0500 Body weight 51.26 kg Radha Ely MD Work Phone: [facility] 07-04-2024 10:06-0500 Diastolic blood pressure 60 mm[Hg] Radha Ely MD Work Phone: [facility] 07-04-2024 10:06-0500 Systolic blood pressure 112 mm[Hg] Radha Ely MD Work Phone: [facility] 06-05-2024 11:08-0500 Body height 163.5 cm Suhail Haury NARRATIVE WRITER.NUCLEAR LICENSING ENGINEER Work Phone: [facility] 06-05-2024 11:08-0500 Body mass index (BMI) [Ratio] 19.17 kg/m2 Suhail Haury NARRATIVE WRITER.NUCLEAR LICENSING ENGINEER Work Phone: [facility] 06-05-2024 11:08-0500 Body weight 51.26 kg Suhail Haury NARRATIVE WRITER.NUCLEAR LICENSING ENGINEER Work Phone: [facility] 06-05-2024 11:08-0500 Diastolic blood pressure 62 mm[Hg] Suhail Haury NARRATIVE WRITER.NUCLEAR LICENSING ENGINEER Work Phone: [facility] 06-05-2024 11:08-0500 Systolic blood pressure 110 mm[Hg] Suhail Haury NARRATIVE WRITER.NUCLEAR LICENSING ENGINEER Work Phone: [facility] Encounters Encounter Date Encounter Type Care Provider Facility Start: 12-13-2024 End: 12-13-2024 Patient encounter procedure Genevieve Madden MD Work Phone: OB/Gynecology Comment on above: 36 weeks gestation o f (HCC) (Primary Dx); GBS bacteriuria; Poor growth affecting management of mother in third trimester, single or unspecified fetus (HCC) Start: 12-12-2024 End: 12-12-2024 Patient encounter procedure Radha Ely MD Work Phone: OB/Gynecology Comment on above: 36 weeks gestation o f (HCC) (Primary Dx); GBS bacteriuria; Encounter for supervision of normal first in third trimester ([facility]) Encounter for ultras ound to check growth ([facility]) (Primary Dx); 36 weeks gestation of ([facility]); affected by growth restriction ([facility]) Start: 11-27-2024 End: 11-27-2025 RhD negative Yisel Puga APRN.CNKelli Work Phone: [facility] Work Phone: Start: 11-27-2024 End: 11-27-2024 Patient encounter procedure Yisel Puga APRN.CNKelli Work Phone: OB/Gynecology Comment on above: Encounter for superv ision of normal first in third trimester (HCC) (Primary Dx); 34 weeks gestation of ([facility]); Uterine size-date discrepancy, third trimester ([facility]); Constipation during in first trimester ([facility]); Heartburn during in first trimester ([facility]); Rh negative state in antepartum period ([facility]); Dysuria Start: 11-27-2024 End: 11-27-2024 ambulatory SUHAIL SWIFT Facility:[facility] Start: 11-09-2024 End: 11-09-2024 ambulatory TIM NEAL Facility:[facility] Start: 11-09-2024 End: 11-09-2024 Patient encounter procedure Suhail Swift APRN.NUCLEAR LICENSING ENGINEER Work Phone: OB/Gynecology Comment on above: Encounter for superv ision of normal first in third trimester (HCC) (Primary Dx); 32 weeks gestation of ([facility]); Uterine size-date discrepancy, third trimester (HCC); Rh negative state in antepartum period (HCC) Encounter for ultras ound to check growth (HCC) (Primary Dx); Uterine size-date discrepancy, third trimester (HCC); 32 weeks gestation of (HCC) Start: 10-26-2024 End: [facility] Start: 10-13-2024 End: 12-13-2024 Follow-up encounter Amy Hernandez MD Work Phone: OB/Gynecology Start: 10-12-2024 End: 10-12-2024 Patient encounter procedure Suhail Swift APRN.NUCLEAR LICENSING ENGINEER Work Phone: OB/Gynecology Comment on above: Encounter for superv ision of normal first in third trimester (HCC) (Primary Dx); 28 weeks gestation of ([facility]); Rh negative state in antepartum period ([facility]); History of depression Start: 10-12-2024 End: 10-12-2024 [facility] Start: 09-22-2024 End: 09-22-2024 Patient encounter procedure Genevieve Madden MD Work Phone: OB/Gynecology Comment on above: Screening for diabet es mellitus (Primary Dx); 25 weeks gestation of ([facility]); Encounter for supervision of normal first in first trimester ([facility]) Start: 09-22-2024 End: 09-22-2024 [facility] SUHAIL SWIFT [facility] Start: 08-24-2024 End: 10-24-2024 Follow-up encounter Suhail Swift APRN.NUCLEAR LICENSING ENGINEER Work Phone: OB/Gynecology Start: 08-24-2024 End: 08-24-2024 [facility] Start: 08-24-2024 End: 08-24-2024 Patient encounter procedure Tim Neal MD Work Phone: OB/Gynecology Comment on above: Encounter for superv ision of normal first in first trimester (Primary Dx); 21 weeks gestation of Encounter for anatomic survey (Primary Dx); 21 weeks gestation of Start: 07-04-2024 End: 07-04-2024 ambulatory SUHAIL BRENNA [facility] Start: 07-04-2024 End: 07-04-2024 Patient encounter procedure Radha Ely MD Work Phone: OB/Gynecology Comment on above: Encounter for superv ision of normal first in first trimester (Primary Dx); 13 weeks gestation of Start: 06-05-2024 End: 06-05-2024 ambulatory SUHAIL SWIFT Facility:[facility] Start: 06-05-2024 End: 06-05-2024 Patient encounter procedure Suhail Swift APRN.NUCLEAR LICENSING ENGINEER Work Phone: OB/Gynecology Comment on above: Encounter for superv ision of normal first in first trimester (Primary Dx); 9 weeks gestation of ; with uncertain dates in first trimester; Screening for cervical cancer; Nausea and vomiting during ; Vulvodynia; Heartburn during in first trimester; Constipation during in first trimester; History of depression Start: 05-11-2024 [facility] Facility :[facility] Start: 05-08-2024 Encounter for other preprocedural examination [facility] Start: 03-30-2024 End: 03-30-2024 ambulatory [facility] Facility:[facility] Procedures Date Procedure Procedure Detail Performing Clinician Start: 12-12-2024 Urnls dip stick/tabl et rgnt non-auto w/o micrscp Radha Ely MD Work Phone: Start: 12-12-2024 Us nuchal translucency 1st gestation Suhail Swift APRN.NUCLEAR LICENSING ENGINEER Work Phone: Start: 11-27-2024 Urnls dip stick/tabl et rgnt auto w/o microscopy Yisel Puga APRN.CNM Work Phone: Start: 11-27-2024 Urnls dip stick/tabl et rgnt non-auto w/o micrscp Yisel Puga APRN.CNM Work Phone: Start: 11-09-2024 Us preg uterus after 1st trimest 1/ gestation Tim Neal MD Work Phone: Start: 10-12-2024 Antibody screen SUHAIL NEVES Comment on above: Order Comment: Speci men Type: BLOOD SPECIMEN Ordering Facility: [facility] Address: [address] [place] [address] Performed By: #### 5 [id number] #### [facility] CLIA [id number] [address] [place], [place] [id number] [place] [address] OF [facility] Start: 08-24-2024 Us preg uterus after 1st trimest 1 gestation Suhail Swift APRN.NUCLEAR LICENSING ENGINEER Work Phone: Start: 07-04-2024 Antibody screen SUHAILMARIUSZ NEVES Comment on above: Order Comment: Speci men Type: BLOOD SPECIMEN Ordering Facility: [facility] Address: [address] [place] [address] Performed By: #### T SPN #### [facility] CLIA [id number] [address] [place] [address] OF [facility] Start: 06-05-2024 Us uterus l imited fetuses Suhail Swift APRN.NUCLEAR LICENSING ENGINEER Work Phone: Plan of Treatment Date Care Activity Detail Author Start: 06-05-2025 GC (Gonorrhea) Screening () GC (Gonorrhea) Screening () [facility] Start: 06-05-2025 Screening for Chlamy peyton trachomatis Chlamydia Screening () [facility] Start: 02-05-2025 Influenza vaccination [facility] Start: 01-02-2025 End: 01-02-2025 Patient encounter procedure 01/02/2025 1:40 PM EDT Routine Office Visit OB/Gynecology [address] [place] [id number] Genevieve Madden MD [address] [place] [id number] OB OB/Gynecology Comment on above: OB Start: 12-28-2024 End: 12-28-2024 Patient encounter procedure 12/28/2024 1:40 PM EDT Routine Office Visit OB/Gynecology [address] [place], [place] [id number] Genevieve Madden MD [address] [place] [address] OB OB/Gynecology Comment on above: OB Start: 12-20-2024 End: 12-20-2024 Patient encounter procedure 12/20/2024 8:00 AM EDT Routine Office Visit OB/Gynecology [address] [place], [place] [id number] Shashi Bae MD [address] [place] [address] OB OB/Gynecology Comment on above: OB Start: 12-12-2024 End: 12-12-2024 Patient encounter procedure Maternal Medicine Comment on above: Growth Growth/OB Start: 11-27-2024 End: 11-27-2025 OBSTETRIC ULTRASOUND WHI OBSTETRIC ULTRASOUND WHI Anc Imaging Routine Encounter for supervision of normal first in third trimester (HCC) 34 weeks gestation of (HCC) Uterine size-date discrepancy, third trimester ([facility]) Constipation during in first trimester ([facility]) Heartburn during in first trimester ([facility]) Rh negative state in antepartum period ([facility]) Dysuria Expected: 11/27/2024, Expires: 11/27/2025 [facility] Work Phone: Comment on above: Expected: 11/27/2024 , Expires: 11/27/2025 Start: 11-27-2024 End: 11-27-2024 Patient encounter procedure 11/27/2024 1:00 PM EDT Routine Office Visit OB/Gynecology [address] [place], [place] [id number] Yisel Puga APRN.CN [address] [place], [place] [phone] OB OB/Gynecology Comment on above: OB Start: 10-26-2024 End: 10-26-2024 Patient encounter procedure 10/26/2024 8:30 AM EDT Routine Office Visit OB/Gynecology [address] [place] [address] Tim Neal MD [address] [facility] [place] [address] 2 week follow up OB/Gynecology Comment on above: 2 week follow up Start: 10-13-2024 End: 01-12-2025 ANEMIA REFLEX PANEL ANEMIA REFLEX PANEL Lab Routine 25 weeks gestation of ([facility]) Encounter for supervision of normal first in first trimester ([facility]) Expected: 10/13/2024 (Approximate), Expires: 01/12/2025 [facility] Comment on above: Expected: 10/13/2024 (Approximate), Expires: 01/12/2025 Start: 10-13-2024 End: 09-22-2025 GESTATIONAL GLUCOSE SCREEN, 1-HOUR, 50 GRAM, NON-FASTING GESTATIONAL GLUCOSE SCREEN, 1-HOUR, 50 GRAM, NON-FASTING Lab Routine Screening for diabetes mellitus 25 weeks gestation of ([facility]) Encounter for supervision of normal first in first trimester ([facility]) Expected: 10/13/2024 (Approximate), Expires: 09/22/2025 [facility] Work Phone: Comment on above: Expected: 10/13/2024 (Approximate), Expires: 09/22/2025 Start: 10-13-2024 End: 09-22-2025 SYPHILIS TREPONEMAL W/REFLEX SYPHILIS TREPONEMAL W/REFLEX Lab Routine 25 weeks gestation of ([facility]) Encounter for supervision of normal first in first trimester ([facility]) Expected: 10/13/2024 (Approximate), Expires: 09/22/2025 [facility] Comment on above: Expected: 10/13/2024 (Approximate), Expires: 09/22/2025 Start: 10-13-2024 End: 01-12-2025 TYPE + SCREEN TYPE + SCREEN Blood Bank Routine 25 weeks gestation of ([facility]) Encounter for supervision of normal first in first trimester ([facility]) Expected: 10/13/2024 (Approximate), Expires: 01/12/2025 [facility] Comment on above: Expected: 10/13/2024 (Approximate), Expires: 01/12/2025 Start: 10-12-2024 End: 10-12-2024 Patient encounter procedure 10/12/2024 10:40 AM EDT Routine Office Visit OB/Gynecology [address] [place] [address] Tim Neal MD [address] [place] [address] OB OB/Gynecology Comment on above: OB Start: 10-12-2024 End: 10-12-2024 ambulatory 10/12/2024 10:30 AM EDT Results Only Patricia Dalywn [facility] [address] [place] [address] Glucose test [facility] Comment on above: Glucose test Start: 09-22-2024 End: 09-22-2024 Patient encounter procedure 09/22/2024 1:30 PM EDT Routine Office Visit OB/Gynecology [address] [place] [address] Tim Neal MD [address] [place] [address] [facility] OB/Gynecology Comment on above: NOAH Start: 08-17-2024 End: 08-17-2024 Patient encounter procedure 08/17/2024 1:30 PM EDT Routine Office Visit OB/Gynecology [address] [place] [address] Radha Ely MD [address] [place] [address] OB OB/Gynecology Comment on above: OB Start: 07-04-2024 End: 07-04-2024 Patient encounter procedure 07/04/2024 10:00 AM EST Routine Office Visit OB/Gynecology [address] [place] [address] Radha Ely MD [address] [place] [address] ob lmp 03/30 OB/Gynecology Comment on above: ob lmp 03/30 Start: 06-26-2024 End: 06-26-2024 Patient encounter procedure Maternal Medicine Comment on above: Nuchal OB Routine Start: 06-05-2024 End: 09-04-2024 ANEMIA REFLEX PANEL ANEMIA REFLEX PANEL Lab Routine with uncertain dates in first trimester Expected: 06/05/2024, Expires: 09/04/2024 [facility] Work Phone: Comment on above: Expected: 06/05/2024 , Expires: 09/04/2024 Start: 06-05-2024 End: 09-04-2024 Hemoglobin A1c in Blood HEMOGLOBIN A1C Lab Routine with uncertain dates in first trimester Expected: 06/05/2024, Expires: 09/04/2024 [facility] Comment on above: Expected: 06/05/2024 , Expires: 09/04/2024 Start: 06-05-2024 End: 09-04-2024 Hepatitis B virus surface Ag [Presence] in Serum HEPATITIS B SURFACE ANTIGEN Lab Routine with uncertain dates in first trimester Expected: 06/05/2024, Expires: 09/04/2024 [facility] Comment on above: Expected: 06/05/2024 , Expires: 09/04/2024 Start: 06-05-2024 End: 09-04-2024 Hepatitis C virus Ab [Presence] in Serum HEPATITIS C ANTIBODY IA WITH CONFIRMATION Lab Routine with uncertain dates in first trimester Expected: 06/05/2024, Expires: 09/04/2024 [facility] Comment on above: Expected: 06/05/2024 , Expires: 09/04/2024 Start: 06-05-2024 End: 09-04-2024 HIV 1+2 Ab [Presence] in Serum or Plasma by Immunoassay HIV 1/2 COMBO WITH REFLEX TO DIFFERENTIATION Lab Routine with uncertain dates in first trimester Expected: 06/05/2024, Expires: 09/04/2024 [facility] Comment on above: Expected: 06/05/2024 , Expires: 09/04/2024 Start: 06-05-2024 End: 06-05-2025 NUCHAL TRANSLUCENCY WHI NUCHAL TRANSLUCENCY WHI Anc Imaging Routine with uncertain dates in first trimester Expected: 06/05/2024, Expires: 06/05/2025 [facility] Comment on above: Expected: 06/05/2024 , Expires: 06/05/2025 Start: 06-05-2024 End: 06-05-2025 OBSTETRIC ULTRASOUND WHI OBSTETRIC ULTRASOUND WHI Anc Imaging Routine with uncertain dates in first trimester Expected: 06/05/2024, Expires: 06/05/2025 [facility] Comment on above: Expected: 06/05/2024 , Expires: 06/05/2025 Start: 06-05-2024 End: 09-04-2024 RUBELLA IGG ANTIBODY RUBELLA IGG ANTIBODY Lab Routine with uncertain dates in first trimester Expected: 06/05/2024, Expires: 09/04/2024 [facility] Comment on above: Expected: 06/05/2024 , Expires: 09/04/2024 Start: 06-05-2024 End: 09-04-2024 SYPHILIS TREPONEMAL W/REFLEX SYPHILIS TREPONEMAL W/REFLEX Lab Routine with uncertain dates in first trimester Expected: 06/05/2024, Expires: 09/04/2024 [facility] Comment on above: Expected: 06/05/2024 , Expires: 09/04/2024 Start: 06-05-2024 End: 09-04-2024 TYPE + SCREEN TYPE + SCREEN Blood Bank Routine with uncertain dates in first trimester Expected: 06/05/2024, Expires: 09/04/2024 [facility] Comment on above: Expected: 06/05/2024 , Expires: 09/04/2024 Start: 02-06-2024 Covid-19 Vaccine ( season) Covid-19 Vaccine ( season) [facility] Start: 02-06-2024 Influenza vaccination Influenza Vacc ine (#1) [facility] Start: 01-04-2024 Screening for malign ant neoplasm of cervix Cervical Cancer Screening [facility] Start: 2022 Hepatitis B Vaccine (1 of 3 - 19+ 3-dose series) Hepatitis B Vaccine (1 of 3 - 19+ 3-dose series) [facility] Start: 2022 Urine microalbumin profile DTaP,Tdap,Td Vaccine (1 - Tdap) [facility] Start: 2021 Anxiety Screening Anxiety Screening [facility] Start: 2021 Depression Screening Depression Scre ening [facility] Start: 2021 GC (Gonorrhea) Screening (18-24) GC (Gonorrhea) Screening (18-24) [facility] Start: 2021 Hepatitis C screening Hepatitis C Sc reening [facility] Start: 2021 HIV screening HIV Screening [facility] Start: 2021 Screening for Chlamy peyton trachomatis Chlamydia Screening () [facility] Start: 2019 Meningococcal B Vacc ine (1 of 2 - Standard) Meningococcal B Vaccine (1 of 2 - Standard) [facility] Start: 2019 Meningococcal B Vaccine: Consider Based On Risk (1 of 2 - Patient Seeks Protection) Meningococcal B Vaccine: Consider Based On Risk (1 of 2 - Patient Seeks Protection) [facility] Start: 2018 HPV Vaccine (1 - 3-d ose series) HPV Vaccine (1 - 3-dose series) [facility] Start: 2017 Peds To Adult Transition Annual Assessment Peds To Adult Transition Annual Assessment [facility] Start: 2015 Peds To Adult Transition Initial Discussion Peds To Adult Transition Initial Discussion [facility] Bacteria identified in Urine by Culture BACTERIAL CULTURE, URINE Microbiology Routine Encounter for supervision of normal first in third trimester (HCC) 34 weeks gestation of (HCC) Dysuria 11/27/2024 2:12 PM EDT [facility] Chlamydia trachomatis+Neisseria gonorrhoeae DNA [Presence] in Unspecified specimen by VEL with probe detection GONORRHEA/CHLAMYDIA NAAT Lab Routine with uncertain dates in first trimester 06/05/2024 11:37 AM EST [facility] Immunizations Immunization Date Immunization Notes Care Provider [facility] 10-12-2024 RHO(D) immune globul in- IV or IM Suhail Swift APRN.NUCLEAR LICENSING ENGINEER Work Phone: [facility] Payers Date Payer Category Payer Self-pay 2024 Private Health Insurance [employer] [id number] 2024 Unknown [employer] PPO [id number] 2024-Present [phone] [address] [place] [address] PPO [id number] 2024 Unknown [id number] Unknown [id number] Unknown [id number] Social History Date Type Detail Facility Start: [facility]05-[facility]24 [facility] Start: 06-05-2024 Tobacco use and exposure Smoke less tobacco non-user [facility] Start: 06-05-2024 End: 12-13-2024 [facility] Start: 06-05-2024 End: 10-12-2024 History of Social function [facility] Start: 06-05-2024 End: 10-12-2024 Tobacco use panel [facility] National Score (1-10 0), lower number is lower risk 62 [facility] Start: 04-13-2024 [facility] Start: 2003 Sex assigned at Not on file C [facility] Clinical Notes 06-05-2024 to 12-13-2024 Quick Notes - Genevieve Madden MD - 12/13/2024 1:59 PM EDTPrenatal Quick Notes - Genevieve Madden MD - 12/13/2024 1:59 PM EDTPatient InstructionsPatient InstructionsPatient Instructions Note Date & Type Note Facility 12-13-2024 Progress note Formatting of t his note might be different from the original. S: Ashlee Moreno is a 19 year old female who presents at 01/04/2025, by Last Menstrual Period for a routine visit. Denies headache, visual changes, chest pain, shortness of breath, vaginal bleeding, leakage of fluid, or dysuria. Feeling well, no complaints. Good movement, No contractions O: See flow sheet Gen: No apparent distress IUGR 2% AC<1% previous 13% Discussed risks of loss with IUGR. Discussed IOL of labor tomorrow at 37 weeks. Does not tolerated vaginal exams. Plan for oral cytotec and nitrous prn for exams ASSESSMENT/PLAN: 1. 36 weeks gestation of (HCC) - ICD9: V22.2, ICD10: Z3A.36 (primary diagnosis) 2. GBS bacteriuria - ICD9: 599.0, 041.02, ICD10: R82.71 Genevieve Madden MD [facility] 12-13-2024 Miscellaneous Notes S: Ashlee Moreno is a 19 year old female who presents at 01/04/2025, by Last Menstrual Period for a routine visit. Denies headache, visual changes, chest pain, shortness of breath, vaginal bleeding, leakage of fluid, or dysuria. Feeling well, no complaints. Good movement, No contractions O: See flow sheet Gen: No apparent distress IUGR 2% AC<1% previous 13% Discussed risks of loss with IUGR. Discussed IOL of labor tomorrow at 37 weeks. Does not tolerated vaginal exams. Plan for oral cytotec and nitrous prn for exams ASSESSMENT/PLAN: 1. 36 weeks gestation of (HCC) - ICD9: V22.2, ICD10: Z3A.36 (primary diagnosis) 2. GBS bacteriuria - ICD9: 599.0, 041.02, ICD10: R82.71 Genevieve Madden MD documented in this encounter [facility] 12-13-2024 Instructions Melissa Espinal LPN - 12/13/2024 1:03 PM EDT SEQUENTIAL SCREENINGS The [facility] offers sequential screenings for women who are interested in screenings for chromosomal abnormalities and certain defects during a . The sequential screen combines ultrasound and blood tests to determine the risk of chromosomal abnormalities, including Down's Syndrome (Trisomy 21) and Trisomy 18, as well as open neural tube defects including spina bifida. Ultrasound examination is performed between 11 weeks and 13 weeks gestational age. Blood tests are drawn after the ultrasound and again later in the between 15 and 21 weeks gestational age. Please let your physician know if you are interested in this testing. It will require an appointment with our compliance field technician. This is not an ultrasound performed by a physician in our office during a routine visit. SIGNS AND SYMPTOMS OF LABOR 1. Contractions every 10 minutes or more often 2. Clear, pink, or brownish fluid (water) leaking from vagina 3. Feeling that baby is pushing down, pressure 4. Low, dull backache 5. Cramps that feel like a period 6. Cramps with or without diarrhea If you notice any of the above symptoms, contact our office at [phone] and ask to speak with a nurse. After hours, you can call doctors registry at [phone] OR call [facility] at [phone] and ask to have the doctor education officer paged. If you consider this an emergency, dial 9-1-7 or go to your nearest emergency department. NEED HELP? Are you dealing with a violent or abusive relationship? Are you a victim of rape or sexual assult? Call [facility] ([place]) 24 hour Crisis Hotline: 910.722.8539 or 793-374-5804. MANUAL Your Guide to a Healthy manual is now on-line. Visit [email or web address] to download your free copy documented in this encounter [facility] 12-12-2024 Note Indication Evaluation of growth. Evaluation of well-being. Discrepancy between uterine size and clinical dates Impression - Single, live, intrauterine . - presentation is cephalic. - Severe growth restriction is present with slowed interval growth. - The EFW is 2119 g, at the 2%. AC is at the <1%. - The amniotic fluid volume is normal amount with an MVP of 6.7 cm and an ERLIN of 16.5 cm. - The placenta is anterior. - BPP 01/12. - No malformations visualized on a limited survey as detailed below. - Doppler velocimetry evaluation of the umbilical artery is within normal limits for this gestational age. Recommendations Twice weekly testing - BPP and UA Doppler alternating with NST For FGR < 3%ile with normal UA Doppler delivery is recommended 37 weeks ([facility]) Maternal Assessment Height 163 cm Height (ft) 5 ft Height (in) 4 in Physical Exam Initial weight (lb) 113 lb Initial BMI 19.40 kg/m Maternal assessment other: 1 Para 0 Method Transabdominal ultrasound examination. View: Suboptimal view: limited by late gestational age Plata . Number of fetuses: 1 Dating LMP on: 03/30/2024 GA by LMP 36 w + 5 d DEYANIRA by LMP: 01/04/2025 GA by prior assessment 36 w + 5 d DEYANIRA by prior assessment: 01/04/2025 Ultrasound examination on: 12/12/2024 GA by U/S based upon: AC, BPD, Femur, HC GA by U/S 34 w + 0 d DEYANIRA by U/S: 01/23/2025 Assigned: based on stated DEYANIRA, selected on 11/09/2024 Assigned GA 36 w + 5 d Assigned DEYANIRA: 01/04/2025 General Evaluation Cardiac activity present. FHR 131 bpm. movements: present. Presentation: cephalic Placenta: Placental site: anterior Umbilical cord: Cord vessels: 3 vessel cord Amniotic fluid: Amount of AF: normal amount. MVP 6.7 cm. ERLIN 16.5 cm. Q1 3.4 cm, Q2 6.7 cm, Q3 3.6 cm, Q4 2.8 cm Biophysical Profile 2: breathing movements 2: Gross body movements 2: tone 2: Amniotic fluid volume 01/12 Biophysical profile score Growth Overview Exam date GA BPD (mm) HC (mm) AC (mm) FL (mm) HL (mm) EFW (g) 08/24/2024 21w 0d 49.6 49% 189.9 58% 167.9 69% 35.6 74% 34.8 77% 429 71% 11/09/2024 32w 0d 85.7 96% 305.3 71% 263.7 11% 57.4 12% 1664 13% 12/12/2024 36w 5d 88 30% 317.3 22% 274.8 <1% 66.8 18% 2119 2% Biometry Standard BPD 88.0 mm 35w 4d 30% Hadlock OFD 109.7 mm 32w 6d 17% Nicolaides HC 317.3 mm 34w 5d 22% Chinedu AC 274.8 mm 31w 4d <1% Hadlock Femur 66.8 mm 34w 0d 18% Chinedu EFW 2,119 g 32w 6d 2% Hadlock EFW (lb) 4 lb EFW (oz) 11 oz EFW by: Hadlock (HC-AC-FL) Extended Pool Table Mechanic 3.0 mm Extremities / Bony Struc FL / HC 0.21 Other Structures FHR 131 bpm Anatomy Lateral ventricles: normal Cavum septi pellucidi: normal Cerebellum: normal Cisterna magna: normal 4-chamber view: normal RVOT view: normal LVOT view: normal 3-vessel view: normal Heart / Thorax Situs: situs solitus (normal) Diaphragm: normal Stomach: normal Kidneys: normal Bladder: normal Gender: Unspecified Wants to know sex: no Doppler Arterial Umbilical A PI 0.90 48% Preethi Umbilical A S / D 2.40 53% Quinn Performed By: Jessi Root RDMS Read By: Rosa Isela Patrick M.D. [facility] 12-12-2024 Progress note Formatting of t his note might be different from the original. KJ - S: Ashlee denies LOF, contractions or vaginal bleeding. O: 36w5d, see flow sheet SENSITIVE EXAM: Sensitive exam not performed. A/P: Assessment & Plan 36 weeks gestation of (HCC) Orders: URINE OB DIP B/O GBS bacteriuria Orders: URINE OB DIP B/O Encounter for supervision of normal first in third trimester (HCC) Orders: URINE OB DIP B/O Growth US today - await report. Reviewed PTL & FM precautions Radha Ely MD [facility] 12-12-2024 Miscellaneous Notes KJ - S: Ashlee denies LOF, contractions or vaginal bleeding. O: 36w5d, see flow sheet SENSITIVE EXAM: Sensitive exam not performed. A/P: Assessment & Plan 36 weeks gestation of ([facility]) Orders: URINE OB DIP B/O GBS bacteriuria Orders: URINE OB DIP B/O Encounter for supervision of normal first in third trimester ([facility]) Orders: URINE OB DIP B/O Growth US today - await report. Reviewed PTL & FM precautions Radha Ely MD documented in this encounter [facility] 12-12-2024 Instructions Brigid Fuentes MA - 12/12/2024 2:37 PM EDT SEQUENTIAL SCREENINGS The [facility] offers sequential screenings for women who are interested in screenings for chromosomal abnormalities and certain defects during a . The sequential screen combines ultrasound and blood tests to determine the risk of chromosomal abnormalities, including Down's Syndrome (Trisomy 21) and Trisomy 18, as well as open neural tube defects including spina bifida. Ultrasound examination is performed between 11 weeks and 13 weeks gestational age. Blood tests are drawn after the ultrasound and again later in the between 15 and 21 weeks gestational age. Please let your physician know if you are interested in this testing. It will require an appointment with our compliance field technician. This is not an ultrasound performed by a physician in our office during a routine visit. SIGNS AND SYMPTOMS OF LABOR 1. Contractions every 10 minutes or more often 2. Clear, pink, or brownish fluid (water) leaking from vagina 3. Feeling that baby is pushing down, pressure 4. Low, dull backache 5. Cramps that feel like a period 6. Cramps with or without diarrhea If you notice any of the above symptoms, contact our office at [phone] and ask to speak with a nurse. After hours, you can call doctors registry at [phone] OR call [facility] at [phone] and ask to have the doctor education officer paged. If you consider this an emergency, dial [phone]--9 or go to your nearest emergency department. NEED HELP? Are you dealing with a violent or abusive relationship? Are you a victim of rape or sexual assult? Call [facility] ([place]) 24 hour Crisis Hotline: 838.353.1950 or 001-893-4918. MANUAL Your Guide to a Healthy manual is now on-line. Visit [email or web address] to download your free copy documented in this encounter [facility] 11-27-2024 Progress note Formatting of t his note might be different from the original. NANCY-S: Ashlee Moreno is a 19 year old female who presents at 34w4d with DEYANIRA:01/04/2025, by Last Menstrual Period for a routine visit. Denies headache, visual changes, chest pain, shortness of breath, vaginal bleeding, leakage of fluid, or dysuria. Feeling well, no complaints. O: See flow sheet Gen: No apparent distress Abd: Gravid, nontender Growth US at 32 wk The EFW is 1664 g, at the 13%. AC is at the 11%. - The amniotic fluid volume is normal amount with an MVP of 7.1 cm and an ERLIN of 22.9 cm. ASSESSMENT/PLAN: 1. Encounter for supervision of normal first in third trimester -Continue PV 2. 34 weeks gestation of 3. Uterine size-date discrepancy, third trimester -Growth US at 36 wk 4. Rh negative state in antepartum period -10/09/24 5. Heartburn during in first trimester -Continue Pepcid 40mg PO once daily 6.Depression affecting -continue zoloft 50mg PO once daily PTL precautions reviewed and when to call RTO in 2 weeks Yisel Puga APRN.CNM [facility] 11-27-2024 Miscellaneous Notes NANCYFabianaS: Ashlee Moreno is a 19 year old female who presents at 34w4d with DEYANIRA:01/04/2025, by Last Menstrual Period for a routine visit. Denies headache, visual changes, chest pain, shortness of breath, vaginal bleeding, leakage of fluid, or dysuria. Feeling well, no complaints. O: See flow sheet Gen: No apparent distress Abd: Gravid, nontender Growth US at 32 wk The EFW is 1664 g, at the 13%. AC is at the 11%. - The amniotic fluid volume is normal amount with an MVP of 7.1 cm and an ERLIN of 22.9 cm. ASSESSMENT/PLAN: 1. Encounter for supervision of normal first in third trimester -Continue PV 2. 34 weeks gestation of 3. Uterine size-date discrepancy, third trimester -Growth US at 36 wk 4. Rh negative state in antepartum period -10/09/24 5. Heartburn during in first trimester -Continue Pepcid 40mg PO once daily 6.Depression affecting -continue zoloft 50mg PO once daily PTL precautions reviewed and when to call RTO in 2 weeks Yisel Puga APRN.CNM documented in this encounter [facility] 11-27-2024 Instructions Yisel Puga APRN.CNM - 11/27/2024 12:58 PM EDT Images from the original note were not included. _ Group B Strep In What is group B strep (GBS)? GBS is one of many common bacteria that live in the human body without causing harm in healthy people.GBS can be found in the intestine, rectum, and vagina in about 2 of every 10 women near the time of . GBS is not a sexually transmitted infection anddoes not cause any vaginal symptoms. When does GBS cause infection? GBS can cause your baby to get pneumonia or a blood infection if your baby gets GBS from your vagina during .Full-term babies whose mothers carry GBS in the vagina at the time of have a 1 in 200 chance of getting sick from GBS during the first few days after . Women who have GBS in their vagina during labor can get an infection in their uterus. How do I know if I carry GBS? Some women have GBS all the time. In many women, it grows in the vagina at times then goes away and comes back again later. During a visit when you are between 35 and 37 weeks , you or your health care provider will collect a sample by touching the outer part of your vagina and just inside the anus with a sterile Q-tip. If GBS grows from that sample, you will be told that you carry GBS and this will be recorded in your chart. You or your provider can write the test results in the box on the next page so you have a record. How can infection from GBS be prevented? If your culture is positive for GBS within 5 weeks of giving , it is very likely that you will still have GBS in your vagina when you go into labor.Your health care provider will recommend that you receive the antibiotic penicillin during labor. GBS is very sensitive to penicillin and is easily removed from the vagina. A few IV doses of penicillin given up to 4 hours before almost always prevents your baby from picking up GBS during . Do I have to wait for labor to take penicillin? GBS is usually not harmful to you or your baby before you are in labor.GBS is easy to remove from the vagina, but iti s not easy to remove from the intestine.If you take penicillin before you are in labor,GBS will return to the vagina as soon as you stop taking the medication, which does not get rid of GBS in your intestine. It is best to take penicillin during labor when it can get rid of the GBS in your vagina quickly and best prevent your baby from getting sick. The one exception is that GBS can occasionally cause a urinary tract infection during . If you get a urinary tract infection, you should be treated with antibiotics at that time.You should also receive penicillin again when you are in labor. What if I don t have time to get penicillin while I m in labor? If you carry GBS in your vagina at the time of and are not able to receive penicillin before your baby is born, your baby will be watched closely for signs of GBS infection. Almost all babies who develop GBS infection will show signs within 24 hours of being born. How do I know if my baby has a GBS infection? If your baby gets a GBS infection, symptoms include difficulty breathing (including grunting or being pale), problems with temperature (too cold or too hot), difficulty with more spitting up than usual, or extreme sleepiness that interferes with . What is the treatment if my baby has a GBS infection? If the infection is caught early and your baby is full-term, most babies will completely recover with IV antibiotic treatment. Of the babies who get sick, about 1 in 6 can have serious complications. Some babies who are very sick will .In most cases, if you carry GBS in the vagina at the time of and are given IV penicillin in labor, the risk of your baby getting sick is very rare (about 1 in 4,000). What if I m allergic to penicillin? Penicillin is the best antibiotic for preventing GBS infection. However, women who are allergic to penicillin can receive different antibiotics during labor.Tell your health care provider if you are allergic to penicillin and what symptoms you had when you had that allergic reaction. For More Information: Centers for Disease Control and Prevention: www.cdc.gov/groupbstrep/ [employer] http://www.marchofdimes.org/pregn deidre/g nhff-b-oesou-infection.aspx What is my perineum? Your perineum is the area between your vaginal opening and your rectum. This area stretches when you give , and sometimes the perineum or vagina will tear as your baby is being born. If your health care provider cuts an episiotomy during your , it is this area that is cut. You may need stitches after your baby is born if you have a tear or have an episiotomy. How often do perineal tears occur? About 4 to 8 out of every 10 women who give vaginally will have some tear in their perineum. About two?thirds of these women will need some stitches. Is an episiotomy necessary? An episiotomy is not necessary for most women. Although they were common before the , they are rarely done today. However, sometimes your health care provider may recommend an episiotomy just as your baby is being born. For example, an episiotomy can help if your baby needs to be born very quickly. You can ask your health care provider to talk with you about episiotomy during a visit. Can my health care provider do anything to help me avoid a tear? There are many ways that your health care provider can help to reduce your chance of tearing. For example, your provider may: Apply a warm compress to the perineum just before the baby comes out Recommend specific positions for you to be in as you push Provide gentle downward pressure on the baby's head as your baby is coming out Ask that you push your baby out between contractions Avoid the use of forceps or a vacuum to help your baby be born Can I do anything before the to help me avoid a tear? Preventing a perineal tear that occurs during has been the subject of many research studies. Several studies have found that perineal massage during the last weeks of can reduce tearing at for women giving for the first time. This massage--using 2 fingers to stretch your perineal tissues--is performed by you, in your home, once or twice a week, for the last 4 to 6 weeks of your . The next page of this handout tells how to do this massage. For every 15 women who do perineal massage, one woman will avoid an episiotomy and perineal tearing that needs stitches. While you massage, you can practice relaxing the muscles in your perineum. This can help you prepare for the stretching, burning feeling you may have when your baby's head is born. Relaxing this area during can help prevent tearing. Does perineal massage in help all women? Massage seems to work better for some women than others. Women having their first baby, women who are 30 years or older, and women who have had episiotomies before have fewer tears and less severe tears when perineal massage is done during the last weeks of . Can my partner help? Yes! Many women find that it is easier to have their partners do this massage. See the instructions for perineal massage on the next page for more information. Are there any risks to perineal massage during ? Not that we know of. It is free. It doesn't hurt. It is easy to do. And most women don't mind doing it. However, you should not stretch the perineum until it hurts or massage too often, which can hurt the skin in that area. Do not do perineal massage more than once or twice a week. Women who do it more often do not have a lower risk of perineal tearing. Check with your health care provider before beginning perineal massage. And, if you believe your amniotic fluid (bag of polo) is leaking, check with your health care provider before putting anything in your vagina. Instructions for Perineal Massage During Wash your hands well, and make sure your fingernails are short. Relax in a private place where you can rest with your legs open and your knees bent. Some women like to lean on pillows for back support. Lubricate your thumbs and the perineal tissues. Use a lubricant such as vitamin E oil, coconut oil, almond oil, or any vegetable oil used for cooking--like olive oil. You may also try a water?soluble jelly, such as K?Y jelly, or your body's natural vaginal lubricant. Do not use baby oil, mineral oil, or petroleum jelly (Vaseline). Place your thumbs about 1 to 1.5 inches inside your vagina (see Figure 1). Press down (toward the anus) and to the sides until you feel a slight burning, stretching sensation. Hold that stretched position for 1 or 2 minutes. With your thumbs, slowly massage the lower half of the vagina using a U?shaped movement for 2 to 3 minutes at most. Concentrate on relaxing your muscles. This is a good time to practice slow, deep breathing techniques. Partners: If your partner is doing the perineal massage, follow the same basic instructions above. However, your partner should use his or her index fingers to do the massage (instead of thumbs). The same side?to?side, U?shaped, downward pressure method should be used. Good communication is important--be sure to tell your partner if you have too much pain or burning! Figure 1 1 Perineal Massage Flesch?Pruden Grade Level: 7.2 Approved June 2015. This handout replaces Perineal Massage in published in Volume 50, Issue 1, Jul 2004 Preparing for labor: Eat dates to promote spontaneous labor! Has an oxytocin-like effect on the body, leading to increased sensitivity of the uterus. Stimulates uterine contractions. Reduces hemorrhage the way oxytocin does. Date fruit contains saturated and unsaturated fatty acids such as oleic, linoleic, and linolenic acids, which are involved in saving and supplying energy and construction of prostaglandins. In addition, serotonin, tannin, and calcium in date fruit contribute to the contraction of smooth muscles of the uterus. Date fruit also has a laxative effect, which stimulates uterine contractions. Six dates per day is the magic number--provided that you re eating smaller deglet noor dates. Deglet noor dates are about 1 inch long. Medjool dates can be up to 2 inches long. If you re eating medjool dates, you only need about 3 dates to reach the 75 grams recommended in the studies. Not sure which type of date you have in your refrigerator? It s probably a deglet noor. How to Eat Dates During Dates are a healthy and delicious snack, so how can you add them to your diet? Add dates during in this awesome oatmeal recipe. Add dates to replace sugar in your favorite recipe or to michelle your homemade almond milk. Use dates and nuts to make an easy pie crust in the food writer. Add soaked dates to homemade nut butter for a sweet treat. Add dates to michelle homemade salad dressing. Add dates during easily with these yummy (paleo friendly) bars made from dates. What Is [place] Tea? Red raspberry leaf tea comes from the leaves of the red raspberry plant. This herbal tea has been used for centuries to support respiratory, digestive and uterine health, particularly during and childbearing years. While usually known as a female herb, red raspberry leaf tea can also help support the prostate and various stomach ailments in children. How It Can Help and Red raspberry leaf tea can help to make labor faster and reduce complications and interventions during . One study found that women who consumed RRL tea regularly are less likely to go overdue or give prematurely. These women may also be less likely to receive an artificial rupture of their membranes or require a section, forceps, or vacuum than the women in the control group. Red raspberry leaf has many other benefits to , , and too. How Much [place] Tea to Drink? With your doctor or cable splicer apprentice s approval, start with 1 cup of red raspberry leaf tea per day starting in the second trimester. Watch for any uterine cramping or other reactions. If you don t experience any, you can talk to your healthcare provider about increasing to 2 cups per day. Again, watch for any uterine cramping. If you notice any, cut back on your dosage for two weeks and try again. Keep in mind, some moms have irritable uteruses and can only drink red raspberry leaf tea once they reach their due date because of uterine cramping. Is [place] Tea the Same as Raspberry [place] Tea? How About Plain Old Raspberry Tea? Sometimes. You really need to look at the ingredients to be sure. Note that there is no difference between red raspberry leaf and raspberry leaf. Vizerra or in2nite [facility]aspberry [facility] [place] Tea are two good brands. The red raspberry leaf teas that we recommend are 100% red raspberry leaf. Other teas labeled as raspberry are often a blend of rosehips, hibiscus, raspberry leaves, and raspberry flavor. So they may not be as effective. The teas to avoid are raspberry-flavored herbal teas, which may have ingredients like hibiscus, simran hips, apples, elderberries, natural and artificial raspberry flavors. Teas like this don t contain raspberry leaf at all and thus won t offer any of the potential benefits of RRLT outlined in this article. The [employer] www.[email or web address] Fort[employer] I named this 'circuit' after my friend Michelle Woo, who shared and discussed it with me when I was working with a client whose labor seemed to be stalled out and no longer progressing... This circuit is useful to help get the baby lined up, ideally, in the Left Occiput Anterior (INDRA) Position, both before labor begins and when some corrections need to be done during labor. Prenatally, this position set can help to rotate a baby. As a natural method of induction, this can help get things going if baby just needed a gentle nudge of position to set things off. To the best of my knowledge, this group of positions will not hurt a baby that is already lined up correctly. - [place] Before you Begin..... This circuit takes at least 90 minutes to complete so clear your schedule and make mental preparations so you can relax in your environment. The second step requires a lot of pillows so gather them up before beginning Before starting, you should empty your bladder! Have a nice drink nearby, and make sure it has a straw! If you are having contractions, this circuit should bedone through contractions, try not to change positions between steps Step One: Open-knee Chest Stay in this position for 30 minutes, start in cat/cow, then drop your chest as low as you can to the bed or the floor and your bottom as high as you can. Knees should be fairly wide apart, and the angle between the torso/thighs should be wider than 90 degrees. Wiggle around, prop with lots of pillows and use this time to get totally relaxed. This position allows the baby to scoot out of the pelvis a bit and gives them room to rotate, shift their head position, etc. If the person finds it helpful,careful positioning with a rebozo under the belly, with gentle tension from a support person behindcan help maintain this position for the full 30minutes. Step Two: Exaggerated Left Side Lying Roll to your left side, bringing your top leg as high as possible and keeping your bottom leg straight. Roll forward as much as possible,again using a lot of pillows. Sink into the bed and relax some more. If you fall asleep, that's totally okay and you can stay there! If not, stay here for at least another half an hour. Try and get your top right leg up towards your head and get as rolled over onto your belly as much as possible. If you repeat the circuit during labor, try alternating left and right sides. We know the photo the left is actually right side... just flip the image in your head. Step Three: Moving and Lunges Lunge, walk stairs facing sideways, 2 at a time, (have a surgical coder downstairs of you!), take a walk outside with one foot on the curb and the other on the street, sit on a ball and hula- anything that's upright and putting your pelvis in open, asymmetrical positions. Spend at least 30 minutes doing this one as well to give your baby a chance to move down. If you are lunging or stair or curb walking, you should lunge/walk/go up stairs in the direction that feels better to you. The cantu with the lunge is that the toes of the higher leg and mom's belly button should be at right angles. Do not lunge over your knee, that closes the pelvis. Michelle Woo: Circuit Creator - www.[facility].com [place] CD, BDT (SHALA), LCCE, FACCE: Supporting Content - www.carly.[email or web address] Fortress Suhailmariusz Calloway Brad: Photography - [email or web address] Fortress Jolynn Edvin CD/CDT (MYRNA): Print and Protective Officer - www.Motally.QFPay Circuit Masterminds The KonnectAgain [employer] www.Tiempo SIGNS AND SYMPTOMS OF LABOR 1. Contractions every 10 minutes or more often 2. Clear, pink, or brownish fluid (water) leaking from vagina 3. Feeling that baby is pushing down, pressure 4. Low, dull backache 5. Cramps that feel like a period 6. Cramps with or without diarrhea If you notice any of the above symptoms, contact our office at [phone] and ask to speak with a nurse. After hours, you can call doctors registry at [phone] OR call [facility] at [phone] and ask to have the doctor education officer paged. If you consider this an emergency, dial 91-4 or go to your nearest emergency department. NEED HELP? Are you dealing with a violent or abusive relationship? Are you a victim of rape or sexual assult? Call [facility] ([place]) 24 hour Crisis Hotline: 529.921.7520 or 107-706-5627. MANUAL Your Guide to a Healthy manual is now on-line. Visit [email or web address] to download your free copy documented in this encounter [facility] 11-09-2024 Note Indication Evaluation of growth Discrepancy between uterine size and clinical dates Impression - Single, live, intrauterine . - presentation is cephalic. - The biometry is consistent with the assigned gestational dating. - The EFW is 1664 g, at the 13%. AC is at the 11%. - The amniotic fluid volume is normal amount with an MVP of 7.1 cm and an ERLIN of 22.9 cm. - The placenta is anterior, fundal. - No malformations visualized on a limited survey as detailed below. Recommendations Growth in four weeks Maternal Assessment Height 163 cm Height (ft) 5 ft Height (in) 4 in Physical Exam Initial weight (lb) 113 lb Initial BMI 19.40 kg/m Maternal assessment other: 1 Para 0 REMOTE READ Method Transabdominal ultrasound examination Plata . Number of fetuses: 1 Dating LMP on: 03/30/2024 GA by LMP 32 w + 0 d DEYANIRA by LMP: 01/04/2025 GA by prior assessment 32 w + 0 d DEYANIRA by prior assessment: 01/04/2025 Ultrasound examination on: 11/09/2024 GA by U/S based upon: AC, BPD, Femur, HC GA by U/S 32 w + 0 d DEYANIRA by U/S: 01/04/2025 Assigned: based on stated DEYANIRA, selected on 11/09/2024 Assigned GA 32 w + 0 d Assigned DEYANIRA: 01/04/2025 General Evaluation Cardiac activity present. FHR 134 bpm. movements: present. Presentation: cephalic Placenta: Placental site: anterior, fundal Umbilical cord: Cord vessels: 3 vessel cord Amniotic fluid: Amount of AF: normal amount. MVP 7.1 cm. ERLIN 22.9 cm. Q1 6.3 cm, Q2 4.8 cm, Q3 4.7 cm, Q4 7.1 cm Growth Overview Exam date GA BPD (mm) HC (mm) AC (mm) FL (mm) HL (mm) EFW (g) 08/24/2024 21w 0d 49.6 49% 189.9 58% 167.9 69% 35.6 74% 34.8 77% 429 71% 11/09/2024 32w 0d 85.7 96% 305.3 71% 263.7 11% 57.4 12% 1664 13% Biometry Standard BPD 85.7 mm 34w 4d 96% Hadlock OFD 105.4 mm 31w 1d 45% Nicolaides HC 305.3 mm 33w 0d 71% Chinedu AC 263.7 mm 30w 3d 11% Hadlock Femur 57.4 mm 30w 0d 12% Chinedu EFW 1,664 g 30w 4d 13% Hadlock EFW (lb) 3 lb EFW (oz) 11 oz EFW by: Hadlock (HC-AC-FL) Extended Pool Table Mechanic 4.9 mm Extremities / Bony Struc FL / HC 0.19 Other Structures FHR 134 bpm Anatomy Lateral ventricles: normal Cavum septi pellucidi: normal Cerebellum: normal Cisterna magna: normal 4-chamber view: normal RVOT view: normal LVOT view: normal 3-vessel view: normal Heart / Thorax Situs: situs solitus (normal) Diaphragm: normal Stomach: normal Kidneys: normal Bladder: normal Gender: Unspecified Wants to know sex: no Performed By: Carolynn Orellana RDMS, RVT Read By: Rosa Isela Patrick M.D. [facility] 11-09-2024 Progress note Formatting of t his note might be different from the original. EH - S: Ashlee is a 19 year old female who presents at 32w0d for a routine visit. Feeling movement. Denies headache, visual changes, chest pain, shortness of breath, vaginal bleeding, leakage of fluid, or dysuria. Feeling well, no complaints. O: See flow sheet Gen: No apparent distress Abd: Gravid, nontender, S ASSESSMENT/PLAN: 1. Encounter for supervision of normal first in third trimester ([facility]) - ICD9: V22.0, ICD10: Z34.03 (primary diagnosis) - Continue PNV - Mood stable 2. 32 weeks gestation of ([facility]) - ICD9: V22.2, ICD10: Z3A.32 3. Uterine size-date discrepancy, third trimester ([facility]) - ICD9: 649.63, ICD10: O26.843 - Growth today 4. Rh negative state in antepartum period ([facility]) - ICD9: 646.83, ICD10: O26.899, Z67.91 - Rhogam received 10/12/24 PTL precautions and kick counts reviewed. RTO in 2 weeks or sooner as needed. Suhail Swift APRN.NUCLEAR LICENSING ENGINEER [facility] 11-09-2024 Miscellaneous Notes EH - S: Ashlee is a 19 year old female who presents at 32w0d for a routine visit. Feeling movement. Denies headache, visual changes, chest pain, shortness of breath, vaginal bleeding, leakage of fluid, or dysuria. Feeling well, no complaints. O: See flow sheet Gen: No apparent distress Abd: Gravid, nontender, S<D ASSESSMENT/PLAN: 1. Encounter for supervision of normal first in third trimester ([facility]) - ICD9: V22.0, ICD10: Z34.03 (primary diagnosis) - Continue PNV - Mood stable 2. 32 weeks gestation of ([facility]) - ICD9: V22.2, ICD10: Z3A.32 3. Uterine size-date discrepancy, third trimester ([facility]) - ICD9: 649.63, ICD10: O26.843 - Growth today 4. Rh negative state in antepartum period ([facility]) - ICD9: 646.83, ICD10: O26.899, Z67.91 - Rhogam received 10/12/24 PTL precautions and kick counts reviewed. RTO in 2 weeks or sooner as needed. Suhail Swift APRN.NUCLEAR LICENSING ENGINEER documented in this encounter [facility] 10-12-2024 Note HNO ID: [id number] Author: MARINA NESS RN Service: ? Author Type: Registered Nurse Type: Progress Notes Filed: 10/12/2024 12:26 Note Text: Ashlee Moreno 19 year old is here for her injection of Rhophylac. Ashlee Moreno Antibody Screen (no units) Date Value 07/04/2024 Negative Ashlee Moreno is RH Negative Rhophylac was given without incident. See immunizations for details of immunizations administered today. Provider EDWARD was present in office at time of injection Ashlee Moreno was given her Rhophylac pocket card. Marina Ness RN [facility] 10-12-2024 History of Present illness Narrative Ashlee Moreno 19 year old is here for her injection of Rhophylac. Ashlee Moreno Antibody Screen (no units) Date Value 07/04/2024 Negative Ashlee Moreno is RH Negative Rhophylac was given without incident. See immunizations for details of immunizations administered today. Provider EDWARD was present in office at time of injection Ashlee Moreno was given her Rhophylac pocket card. Marina Ness RN EH - S: Ashlee is a 19 year old female who presents at 28w0d for a routine visit. Feeling movement. Denies headache, visual changes, chest pain, shortness of breath, vaginal bleeding, leakage of fluid, or dysuria. Feeling well, no complaints. O: See flow sheet Gen: No apparent distress Abd: Gravid, nontender, S<D ASSESSMENT/PLAN: 1. Encounter for supervision of normal first in third trimester ([facility]) - ICD9: V22.0, ICD10: Z34.03 (primary diagnosis) - Continue PNV 2. 28 weeks gestation of ([facility]) - ICD9: V22.2, ICD10: Z3A.28 - 1 hour GCT, CBC, and RPR today - Rh negative: Rhogam injection today - Considering TDAP - rediscuss next visit - LARC form reviewed and signed. Declines. - Depression screen negative - Opioid screen negative - plan form discussed and given to Ashlee - Reviewed how to pre register through [facility] 3. Rh negative state in antepartum period ([facility]) - ICD9: 646.83, ICD10: O26.899, Z67.91 - RHO(D) IMMUNE GLOBULIN 1,500 UNIT (300 MCG)/2 ML INJECTION SYRINGE 4. History of depression - ICD9: V11.8, ICD10: Z86.59 - Screening negative - Reports coping well at 50 mg of Zoloft PTL precautions and kick counts reviewed. RTO in 2 weeks or sooner as needed. Suhail Swift APRN.NUCLEAR LICENSING ENGINEER documented in this encounter [facility] 10-12-2024 Note HNO ID: [id number] Author: SUHAIL SWIFT APRN.NUCLEAR LICENSING ENGINEER Service: ? Author Type: Nurse Practitioner Type: Progress Notes Filed: 10/12/2024 12:26 Note Text: EH - S: Ashlee is a 19 year old female who presents at 28w0d for a routine visit. Feeling movement. Denies headache, visual changes, chest pain, shortness of breath, vaginal bleeding, leakage of fluid, or dysuria. Feeling well, no complaints. O: See flow sheet Gen: No apparent distress Abd: Gravid, nontender, S ASSESSMENT/PLAN: 1. Encounter for supervision of normal first in third trimester ([facility]) - ICD9: V22.0, ICD10: Z34.03 (primary diagnosis) - Continue PNV 2. 28 weeks gestation of ([facility]) - ICD9: V22.2, ICD10: Z3A.28 - 1 hour GCT, CBC, and RPR today - Rh negative: Rhogam injection today - Considering TDAP - rediscuss next visit - LARC form reviewed and signed. Declines. - Depression screen negative - Opioid screen negative - plan form discussed and given to Ashlee - Reviewed how to pre register through [facility] 3. Rh negative state in antepartum period ([facility]) - ICD9: 646.83, ICD10: O26.899, Z67.91 - RHO(D) IMMUNE GLOBULIN 1,500 UNIT (300 MCG)/2 ML INJECTION SYRINGE 4. History of depression - ICD9: V11.8, ICD10: Z86.59 - Screening negative - Reports coping well at 50 mg of Zoloft PTL precautions and kick counts reviewed. RTO in 2 weeks or sooner as needed. Suhail Swift APRN.NUCLEAR LICENSING ENGINEER [facility] 10-12-2024 Instructions Brigid Fuentes MA - 10/12/2024 10:38 AM EDT SEQUENTIAL SCREENINGS The [facility] offers sequential screenings for women who are interested in screenings for chromosomal abnormalities and certain defects during a . The sequential screen combines ultrasound and blood tests to determine the risk of chromosomal abnormalities, including Down's Syndrome (Trisomy 21) and Trisomy 18, as well as open neural tube defects including spina bifida. Ultrasound examination is performed between 11 weeks and 13 weeks gestational age. Blood tests are drawn after the ultrasound and again later in the between 15 and 21 weeks gestational age. Please let your physician know if you are interested in this testing. It will require an appointment with our compliance field technician. This is not an ultrasound performed by a physician in our office during a routine visit. SIGNS AND SYMPTOMS OF LABOR 1. Contractions every 10 minutes or more often 2. Clear, pink, or brownish fluid (water) leaking from vagina 3. Feeling that baby is pushing down, pressure 4. Low, dull backache 5. Cramps that feel like a period 6. Cramps with or without diarrhea If you notice any of the above symptoms, contact our office at [phone] and ask to speak with a nurse. After hours, you can call doctors registry at [phone] OR call [facility] at [phone] and ask to have the doctor education officer paged. If you consider this an emergency, dial 9-1-5 or go to your nearest emergency department. NEED HELP? Are you dealing with a violent or abusive relationship? Are you a victim of rape or sexual assult? Call [facility] ([place]) 24 hour Crisis Hotline: 493.937.7851 or 164-859-0788. MANUAL Your Guide to a Healthy manual is now on-line. Visit [email or web address] to download your free copy documented in this encounter [facility] 09-22-2024 Progress note Formatting of t his note might be different from the original. S: Ashlee Moreno is a 19 year old female who presents at 01/04/2025, by Last Menstrual Period for a routine visit. Denies headache, visual changes, chest pain, shortness of breath, vaginal bleeding, leakage of fluid, or dysuria. Feeling well, no complaints. Good movement, No contractions O: See flow sheet Gen: No apparent distress Abd: Gravid, nontender Reviewed labs for next visit. Explained rhogam ASSESSMENT/PLAN: 1. Screening for diabetes mellitus - ICD9: V77.1, ICD10: Z13.1 (primary diagnosis) - GESTATIONAL GLUCOSE SCREEN, 1-HOUR, 50 GRAM, NON-FASTING 2. 25 weeks gestation of ([facility]) - ICD9: V22.2, ICD10: Z3A.25 - GESTATIONAL GLUCOSE SCREEN, 1-HOUR, 50 GRAM, NON-FASTING - SYPHILIS TREPONEMAL W/REFLEX - ANEMIA REFLEX PANEL - TYPE + SCREEN 3. Encounter for supervision of normal first in first trimester ([facility]) - ICD9: V22.0, ICD10: Z34.01 - GESTATIONAL GLUCOSE SCREEN, 1-HOUR, 50 GRAM, NON-FASTING - SYPHILIS TREPONEMAL W/REFLEX - ANEMIA REFLEX PANEL - TYPE + SCREEN Genevieve Madden MD [facility] 09-22-2024 Miscellaneous Notes S: Ashlee Moreno is a 19 year old female who presents at 01/04/2025, by Last Menstrual Period for a routine visit. Denies headache, visual changes, chest pain, shortness of breath, vaginal bleeding, leakage of fluid, or dysuria. Feeling well, no complaints. Good movement, No contractions O: See flow sheet Gen: No apparent distress Abd: Gravid, nontender Reviewed labs for next visit. Explained rhogam ASSESSMENT/PLAN: 1. Screening for diabetes mellitus - ICD9: V77.1, ICD10: Z13.1 (primary diagnosis) - GESTATIONAL GLUCOSE SCREEN, 1-HOUR, 50 GRAM, NON-FASTING 2. 25 weeks gestation of ([facility]) - ICD9: V22.2, ICD10: Z3A.25 - GESTATIONAL GLUCOSE SCREEN, 1-HOUR, 50 GRAM, NON-FASTING - SYPHILIS TREPONEMAL W/REFLEX - ANEMIA REFLEX PANEL - TYPE + SCREEN 3. Encounter for supervision of normal first in first trimester ([facility]) - ICD9: V22.0, ICD10: Z34.01 - GESTATIONAL GLUCOSE SCREEN, 1-HOUR, 50 GRAM, NON-FASTING - SYPHILIS TREPONEMAL W/REFLEX - ANEMIA REFLEX PANEL - TYPE + SCREEN Genevieve Madden MD documented in this encounter [facility] 09-22-2024 Instructions Brigid Fuentes MA - 09/22/2024 1:19 PM EDT SEQUENTIAL SCREENINGS The [facility] offers sequential screenings for women who are interested in screenings for chromosomal abnormalities and certain defects during a . The sequential screen combines ultrasound and blood tests to determine the risk of chromosomal abnormalities, including Down's Syndrome (Trisomy 21) and Trisomy 18, as well as open neural tube defects including spina bifida. Ultrasound examination is performed between 11 weeks and 13 weeks gestational age. Blood tests are drawn after the ultrasound and again later in the between 15 and 21 weeks gestational age. Please let your physician know if you are interested in this testing. It will require an appointment with our compliance field technician. This is not an ultrasound performed by a physician in our office during a routine visit. SIGNS AND SYMPTOMS OF LABOR 1. Contractions every 10 minutes or more often 2. Clear, pink, or brownish fluid (water) leaking from vagina 3. Feeling that baby is pushing down, pressure 4. Low, dull backache 5. Cramps that feel like a period 6. Cramps with or without diarrhea If you notice any of the above symptoms, contact our office at [phone] and ask to speak with a nurse. After hours, you can call doctors registry at [phone] OR call [facility] at [phone] and ask to have the doctor education officer paged. If you consider this an emergency, dial 9-1- or go to your nearest emergency department. NEED HELP? Are you dealing with a violent or abusive relationship? Are you a victim of rape or sexual assult? Call [facility] ([place]) 24 hour Crisis Hotline: 304.971.1982 or 806-830-5697. MANUAL Your Guide to a Healthy manual is now on-line. Visit [email or web address] to download your free copy documented in this encounter [facility] 08-24-2024 Progress note Formatting of t his note might be different from the original. SW- pt doing well. No pain, vb, lof. +FM PE: Gen- NAD, well appearing Abd- Gravid A/p 21 wk gestation - Anatomy US today and final report pending - Reviewed NOB labs RTO 4 wks Tim Neal DO [facility] 08-24-2024 Miscellaneous Notes SW- pt doing well. No pain, vb, lof. +FM PE: Gen- NAD, well appearing Abd- Gravid A/p 21 wk gestation - Anatomy US today and final report pending - Reviewed NOB labs RTO 4 wks Tim Neal DO documented in this encounter [facility] 08-24-2024 Instructions Brigid Fuentes MA - 08/24/2024 8:36 AM EDT SEQUENTIAL SCREENINGS The [facility] offers sequential screenings for women who are interested in screenings for chromosomal abnormalities and certain defects during a . The sequential screen combines ultrasound and blood tests to determine the risk of chromosomal abnormalities, including Down's Syndrome (Trisomy 21) and Trisomy 18, as well as open neural tube defects including spina bifida. Ultrasound examination is performed between 11 weeks and 13 weeks gestational age. Blood tests are drawn after the ultrasound and again later in the between 15 and 21 weeks gestational age. Please let your physician know if you are interested in this testing. It will require an appointment with our compliance field technician. This is not an ultrasound performed by a physician in our office during a routine visit. SIGNS AND SYMPTOMS OF LABOR 1. Contractions every 10 minutes or more often 2. Clear, pink, or brownish fluid (water) leaking from vagina 3. Feeling that baby is pushing down, pressure 4. Low, dull backache 5. Cramps that feel like a period 6. Cramps with or without diarrhea If you notice any of the above symptoms, contact our office at [phone] and ask to speak with a nurse. After hours, you can call [facility] at [phone] OR call [facility] at [phone] and ask to have the doctor education officer paged. If you consider this an emergency, dial 9-1-3 or go to your nearest emergency department. NEED HELP? Are you dealing with a violent or abusive relationship? Are you a victim of rape or sexual assult? Call [facility] ([place]) 24 hour Crisis Hotline: 411.654.9350 or 127-186-2822. MANUAL Your Guide to a Healthy manual is now on-line. Visit [email or web address] to download your free copy documented in this encounter [facility] 07-04-2024 Progress note Formatting of t his note might be different from the original. KJ - VB No. LOF No. CTXS No. Movement: absent. Other c/o: No. Medication list reviewed. Physical Exam See Flow Sheet Gen: no accute distress, well appearing Abd: soft, nontender, gravid A/P 13w5d Estimated Date of Delivery: 01/04/25 Schedule Anatomy US PNB today Explained rationale for taking aspirin and patient is considering it. Radha Ely MD [facility] 07-04-2024 Miscellaneous Notes KJ - VB No. LOF No. CTXS No. Movement: absent. Other c/o: No. Medication list reviewed. Physical Exam See Flow Sheet Gen: no accute distress, well appearing Abd: soft, nontender, gravid A/P 13w5d Estimated Date of Delivery: 01/04/25 Schedule Anatomy US PNB today Explained rationale for taking aspirin and patient is considering it. Radha Ely MD documented in this encounter [facility] 07-04-2024 Instructions Brooklynn Philippe MA - 07/04/2024 10:05 AM EST SEQUENTIAL SCREENINGS The [facility] offers sequential screenings for women who are interested in screenings for chromosomal abnormalities and certain defects during a . The sequential screen combines ultrasound and blood tests to determine the risk of chromosomal abnormalities, including Down's Syndrome (Trisomy 21) and Trisomy 18, as well as open neural tube defects including spina bifida. Ultrasound examination is performed between 11 weeks and 13 weeks gestational age. Blood tests are drawn after the ultrasound and again later in the between 15 and 21 weeks gestational age. Please let your physician know if you are interested in this testing. It will require an appointment with our compliance field technician. This is not an ultrasound performed by a physician in our office during a routine visit. SIGNS AND SYMPTOMS OF LABOR 1. Contractions every 10 minutes or more often 2. Clear, pink, or brownish fluid (water) leaking from vagina 3. Feeling that baby is pushing down, pressure 4. Low, dull backache 5. Cramps that feel like a period 6. Cramps with or without diarrhea If you notice any of the above symptoms, contact our office at [phone] and ask to speak with a nurse. After hours, you can call doctors registry at [phone] OR call [facility] at [phone] and ask to have the doctor education officer paged. If you consider this an emergency, dial 9-3-0 or go to your nearest emergency department. NEED HELP? Are you dealing with a violent or abusive relationship? Are you a victim of rape or sexual assult? Call [facility] ([place]) 24 hour Crisis Hotline: 587.852.5578 or 301-122-3558. MANUAL Your Guide to a Healthy manual is now on-line. Visit [facility].org/HealthyPregna joleneyGuicarmen to download your free copy documented in this encounter [facility] 06-05-2024 Instructions Suhail Swfit APRN.NUCLEAR LICENSING ENGINEER - 06/05/2024 10:52 AM EST Images from the original note were not included. Please select the following link to access the [facility] Your Guide to a Healthy . [email or web address]/healthypregnancyguide MORNING SICKNESS IN by Claudia Alberto M.D. for [employer] As you may already know, morning sickness can often be more appropriately called evening sickness or urrby-ljdgha-wu-the-day sickness. While there are the constanza few, most women (50-90%) experience some degree of nausea, some have vomiting, and a few develop a severe form of vomiting during called hyperemesis gravidarum. What causes the nausea and vomiting of ? We can't explain why some people feel fine and others are green for months. Even the same woman may feel vastly different in each . There is some relationship between nausea and the level of the hormone hCG. In twin pregnancies, and in other situations where the hCG is greater than expected, nausea and vomiting tend to be worse. In a destined for miscarriage, hCG levels tend to be low, and nausea is often less severe. This being said, a lack of nausea doesn't guarantee that the is destined for miscarriage. The fact that nausea and vomiting are often signs of a healthy can offer a silver lining in the dark cloud of miserable nausea. How long will the nausea last? Fortunately, for most women, nausea and vomiting are a first trimester event, peaking at week 9-10 and waning by week 14-16. When you are feeling bad the weeks can go by slowly but most moms do feel tremendously better by the middle of the . Whether morning sickness is a brief experience or lasts through most of the , there are treatments that can make the weeks or months more tolerable. What can you do about it? Diet: See what works for you. Try eating bland dry foods, and avoid fatty or spicy foods. It is okay to eat a less than perfectly balanced diet in the first trimester. Have your liquids separately from dry foods. Try sports drinks, water, clear juices, Ulises-aid, or non-caffeinated tea. Avoid carbonated beverages that fill up your stomach. Try eating lots of little meals. If you tend to feel sick when you first wake up, leave crackers next to the bed for a quick snack before rising. Keeping healthy snacks with you all day to nibble when you feel queasy can sometimes even prevent nausea from starting. vitamins and nausea: Pre-brenda vitamins can sometimes worsen nausea in . While folate is necessary, especially early in the , it comes as a smaller pill that many people find more tolerable than the complete vitamin pill. Ask your practitioner if it is okay to temporarily replace vitamins and iron with just a folate pill if you find a significant worsening in the level of your nausea from the vitamins. Alternative therapies: Acupressure may be used to treat nausea in , and is not known to have any risks for the fetus. Wristbands (marketed for seasickness) that put pressure on an acupressure point at the wrist are often available at drugstores or travel stores. Darion root is used for nausea in many traditional cultures. Some women take fresh grated darion or darion tablets. It is possible that the pill form contains other ingredients or contaminants, so you may want to try fresh darion first. Medications: Emetrol is the only nausea medication approved for use in . It is available over the counter and is soothing to the stomach. A prescription medication called Bendectin was available in the 1970s-1979's and was shown to be safe in , but the company stopped marketing it in the [place] due to the costs of liability coverage. Bendectin contained 10 milligrams of vitamin B6 and 10 milligrams of Doxylamine. Two tablets were given at bedtime and a total of up to 4 tablets could be used in a 24-hour period. Interestingly, Unisom , which contains a higher dose (25 mg.) of the same medication, Doxylamine, is currently marketed as an mkdx-xqw-zyvjqln sleeping pill. Ask your practitioner if creating a vitamin B6/Doxylamine combination with epfa-dib-esjvwsy medications would be safe for you. Prescription medications like Compazine and Phenergan can be used if the benefits outweigh possible risks, but these have not been clearly shown to be safe in . Zofran , an expensive anti-nausea medication often used to treat nausea from chemotherapy, can also be used. Can I throw up so much it harms the baby? The act of vomiting cannot hurt your fetus, which is protected inside the uterus. If you get dehydrated or develop a metabolic imbalance, this can be unhealthy. As long as you can keep down liquids, you and your baby will generally do all right. Eat when you feel able. If you are unable to keep anything down, or if you notice potential signs of dehydration such as lightheadedness, or concentrated and/or infrequent urination, call your practitioner. Some women need brief hospital admission for intravenous fluids and anti-nausea medications if their condition becomes severe. This severe form of nausea and vomiting is called Hyperemesis Gravidarum. As with many symptoms of , remind yourself that this, too, shall pass, and you'll have a wonderful baby to show for it! TREATMENT OPTIONS, SHORT VERSION: Frequent small meals Hydrate throughout day Sea-Bands wrist pressure point applicators Darion root (powdered, in capsules) 250mg four times a day Vitamin B6 25 mg tablet three times a day Also may be taken with half a tablet of Unisom three times a day (Doxylamine 12.5 mg) If severe (weight loss, dehydration), call us and come in for IV hydration and possible medication in the form of injections. Prescription medications such as Phenergan, Compazine, Reglan Psychotherapy Services at [facility] Call Behavioral Health Access Line at [phone] to schedule Individual psychotherapy In-person or virtual Wait time for first evaluation may be 12 or more weeks. Wait list spots may be available. Due to the high volume of patients this option is recommended if you are looking for short term acute symptom coping strategies. 8-511-7-GEJJ2KSMW - [facility] Mental Health Hotline If you are in suicidal crisis, please call or text 4-728-078-TALK ( ) or visit the National Suicide Prevention Lifeline website. mchb.[facility].gov If you are in crisis, call 011 or go to your nearest Emergency Department Here are some links for wonderful Providers here in the community and surrounding areas. Do not hesitate to contact their offices, many are offering virtual visits during this time. Psychotherapy Services outside of [facility] Support International Online Provider Directory https://Avenda Systems.Digital Fortress/ - can assist in finding providers in your area that might be more extensive then the list below. [facility] [place], [place] [address], [place] [phone] [facility] [address] [place] [address] [place] [address] [place] [address] [facility] [address] [place] [address] Ernst Overton MD [address] [place] [address] [facility] [address] [facility], [address] [place] [address] [facility] [address] [place] [address] [facility] [place] / [place] [phone]/ [phone] Dayanna Mohansusanmichelle [address] [facility] [phone] Aves of Counseling and Mediation [place] / [place] [phone] Behavioral health services of [facility] [address] [place] [address]/ [place] and eucha [phone] Armando Gutierrez, NOEL, CLC [facility] Workshops, telehealth and at home visits. [phone] [facility] 20 locations [place], [place], [place], [place], [place], [place], [place], [facility], [place], [place], [place], [place], [place], [place], [facility], [place], [place] ,[facility], [place], [place],[facility], [facility], [place], [facility], [facility], [place] www.[facility]bey[facility] medical centerer.co [phone] Psychotherapy resources outside of [facility] are listed below BCKSTGR Psychotherapy Web: https://www.Scatter Lab/ Support International Online Provider Directory https://Bardakovka/ [facility] https://insightcoPrime Focus.Digital Fortress/ Partners for Behavioral Health and Wellness Web: https://Inofile/ Center for Effective Living Web: https://www.MyCleanliving.Digital Fortress/ LifeStance Web: https://FashionGuide/location/s fabio/anne marie/ [facility] Web: https://www.[facility].or / [facility] Web: https://ADC Therapeutics.Intelclinic/ Recovery Resources Mental health and substance abuse help Web: https://www.natue & RESOURCES Support International Direct peer support and connection to professional resources Non-Emergency Helpline Phone: / Text: [phone] Web: https://www..net/ Online Provider Directory: https://Bardakovka/ Online Support Meetings: https://www..net/get-he lp/baw-jvgkoy-qwswwxs-meetings/ NICK Baby and Onshore Diver Services Web: https://Mantis Vision/ MotherToBaby Expert information on medication use during and Text: [phone] Web: https://Airspan Networks/ NATIONAL REGISTRY FOR PSYCHIATRIC MEDICATIONS Currently studying the safety of antidepressants, ADHD medications and atypical antipsychotics taken during TO PARTICIPATE CALL TOLL-FREE: Web: https://womenentalhealth.org/re search/pregnancyregistry/ Support Groups: [facility]- Follow on facebook Baby Bistro support group led by [facility] department Resilient Mamas - Support Group [facility].org The POEM support group [phone] Www.poemonline.org Follow on facebook - LEO gorman Online support meetings PSI https://www..net/get-he lp/jyq-qtxvfb-odqoivm-meetings/ [facility] mommy and me virtual support group 11:30-1pm Support for mothers and new babies and toddlers [place] childbirth education: Childbirth @cc.org or call [phone] CRISIS: CRISIS HOTLINE [phone], 911 or go to the nearest ER. [facility] [phone] / [facility] [phone] https://www.[facility] university hospitalrb.org Crisis text line text the word HOME to [address] [facility] [address] [facility] [address] www.Chasqui BussanderStudioTweets Anjana De Guzman clinical counseling [address] [facility] [address] [place] [address] www.Inofile [phone] Holding space psychotherapy Cira Ray MANAGER MEDIA RELATIONS PROCESS COACH-S [address] [facility] www.Datavail [phone]/ [place] [phone] They all offer virtual. All work with trauma Support groups Online support meetings PSI https://www..net/get-he lp/wkm-mjtoao-eeyppul-meetings/ Here are the support groups they offer: Support of parents of 1 to 4 years old children POEM ( Outreach and Encouragement for Moms) offers free support for mothers experiencing depression, anxiety, and other mood and anxiety disorders. Masks are recommended but not required. No pre-registration required. Babies in arms welcome. meetings now take place on the and Wednesday of each month Location: [facility] [address] [place] [address] Room 122 (library room) 7-8:00 p.m. When you enter the [facility] parking lot off of [address] the entrance door closest to our meeting room is on the front of the building toward the right. For those who are more comfortable with a virtual platform, POEM offers online support group options several days of the week. To register for an online group or to find out more about POEM, website at: https://mhaohio.org/get-help/[facility] westchesteropql-wnuzgn-vqwfdu/poem-services/ offer a confidential helpline: private Facebook group is called LEO Gorman Here are the groups they offer: Traumatic childbirth resources: Http://pattch.org/ https://www.ugoAlion Energy.Digital Fortress/ Name Location (s) Phone # (s) Services Website Holding Space Psychotherapy [address] [facility], [place], [place] - [phone]; [address] [facility] [address] [facility] [phone] In-Person GROUPS INDIVIDUAL THERAPY MATERNAL-INFANT MENTAL HEALTH MEDICATION MANAGEMENT PLAY AND ART THERAPY TELETHERAPY https://www.Scatter Lab/s erviccharles/ Ingrid medina [facility]? [address] [place], [place] [address] ? [address], [address] [place], [place] [address] ? [address] [place], [place] [address]? Grief Support Groups Individual Grief Counseling Spiritual Care [facility] https://snell.[facility].org/grief-services [facility] [address] [place], [place] [address]; ; Email: gema@Boomdizzle Networks Women's Mental Health; Couples Counseling; Trauma (EMDR); Stress Management; Mood and Anxiety Related Disorders- and much more https://www.Netseer/ LifeStance Numerous as they have contract providers: access website to find specific providers near you Counseling including CBT and EMDR as well as many more modalities; Medication Management; Telehealth and In-Person https://Butterfleye Inc.Digital Fortress/ Partners for Behavioral Health and Wellness [address] [place], [place] [address]; [phone] Personal, Family and Group Therapy; Psychological Testing and Diagnosis; Medication Management; Life and Career Coaching; Psychoanalysis; Literacy Testing; Yoga and Meditation https://Cause.it.Digital Fortress/ [facility] [address] [facility] [address], [place] [address] [address] ; [address] [facility], [address] [place] [address]; Office # for both sites: Individual and Couples Counseling https://www.SoleTrader.com.Digital Fortress/ paymentinsurance.html OCD & Anxiety [facility] [address], [address], [place] [address]; Specialize in Cognitive-Behavioral Therapy (CBT) for the treatment of anxiety disorders across the lifespan. TELEHEALTH ONLY. https://Bruder HealthcareandanxietyEyeona/faqs [facility] [address] [place], [address] [place] [address] [place] [address] [place] [address] [facility] [place], [address] [place] [address] [place], [address], [address] [place] [address] [place], [address] [place] [address] [place], [address] Transportation Services To minimize patient barriers, [facility] provides transportation services to patients who qualify. If you are unable to get to your appointment at any of our facilities, please let us know. Need help now? Stop by one of our walk-in clinics to establish behavioral health care. Counseling Indvidual, Group, Couples and Family Counseling and EMDR. Medication Management Case Management benefits applications housing assistance Substance abuse treatment Medication assisted treatment https://www.[facility].or g/mental-health/ [facility] OFFICE AT [facility] [address] [place] [address] [facility] OFFICE [address] [place] [address] [facility] OFFICE [address] [place], [place] [id number] [facility] OFFICE (at [facility]) [address] [place] [address] [facility] SYRINGE EXCHANGE PROGRAM & HIV SCREENING [address] [place] [address] [place] EXCHANGE PROGRAM [address] [place] [address] Behavioral Health Urgent Care: [facility] & Michele [address] Sites Counseling Indvidual and Group Medication Management Case Management benefits applications housing assistance Substance abuse treatment Medication assisted treatment Employment Services/ Job Training https://theRelaboratecoCHNL.org/ Recovery Resources [address] [place], [place] [address]: P: [phone] [address] [facility], [address], [place], [place] [address] P: [phone] Our services include: Addiction Mental Health Treatment Assessment Psychiatry Medical Care Employment Housing Drug and Alcohol Prevention HIV/AIDS Prevention https://www.Planet Labss.org/ [facility] [place] [address] [place] [address] [address] [place], [place] [address] [place] [address] [place] [address] [place] [address] [facility] [address] [place] [address] [place] [address] [place] [place] [address] TMS Therapy/ Counseling Psychocological Testing for ADHD Medication Management In-Person/ Telemedicine https://www.Kaspersky Lab/gino ents-depression Memory & Psychological services [address] [address], [place] [address] Neuropsychological Testing For ADHD https://www.memoryandpsych.com/ [facility] Office [address] [place] [address] [address] Providing hfzt-zw-ufgg and telehealth services. Adult Case Management Community Education and Prevention Employment Outpatient Treatment - Counseling & Psychotherapy Psychiatric Services http://www.ccwhc.org/ [facility] [place] [address] [place] [address] Maria T [facility] [address] [place] [address] Virtual Appointments! Now offering safe and convenient virtual client appointments to anyone in [place]! Individual Therapy Couples/Relationship Therapy Trauma/EMDR Therapy Art Therapy Play Therapy Motor Grader Rough Grade Support: Parenting Skills, Parent Child Interaction Therapy, Parent Infant Interaction Therapy Meditation Dietitian/Chemical Plant Operator Services Group Therapy Yoga https://www.ebbandflowcounseling. Digital Fortress/ Sherri Ponce [phone] Private Practice: Telehealth Only Specializes in EMDR for Trauma None documented in this encounter [facility] 06-05-2024 Note HNO ID: [id number] Author: SUHAIL SWIFT APRN.CNP Service: ? Author Type: Nurse Practitioner Type: Progress Notes Filed: 06/05/2024 11:40 Note Text: Outpatient Physical Therapist offered: Patient declines. INITIAL OB ASSESSMENT HPI: Ashlee is a 19 year old White here to establish Obstetrical Care. Patient's last menstrual period was 03/30/2024. from OB Dating Form. was unplanned but accepted Complaints: nausea/vomiting OB History T0 L0 SAB0 IAB0 Ectopic0 Multiple0 Live Births0 Previous history: Prior : never History of 4th degree laceration: No History of shoulder dystocia: No History of Hypertensive disorders including pre-eclampsia or gestational hypertension: No History of gestational diabetes: No Patient's Risk Screening for delivery: Have you had a prior plata between 20w and 36w6d? No How many pregnancies have you had before? 0 Did you have a previous baby with a GBS Infection? No Please select all that apply for any prior : N/A MEDICAL/PSYCHOSOCIAL HISTORY: History of hemorrhage or bleeding concerns: No Thyroid Disease: No History of chronic hypertension: No History of pre-existing diabetes: No No results found for: ABORHD BMI 19.17 kg/(m2) Last Pap: Never done History of abnormal pap: N/A Prior treatment for cervical dysplasia: none. Last HPV: N/A History of STDs: None Partner History of STDs: None Did you have a partner with Herpes? No Tobacco use: No E-Cigarette/Vaping Use: No Caffeine use: No Drug use: No Alcohol use: No Multivitamin with Folic acid: Yes Would refuse blood transfusion if medically necessary: No Social Needs: How often does this describe you? I don't have enough money to pay my bills: Never Within the past 12 months, have you worried that your food would run out before you had money to buy more? Never In the past 12 months, has lack of reliable transportation kept you from going to medical appointments or work, or from getting things needed for daily living? Never In the past 12 months, have you had any concerns about having a place to live, or about the condition or quality of your housing? Never Would you like more information on any of the following (please check all that apply)? Not interested Social History: Do you have any history of depression, anxiety, PTSD, or other mood problems? Yes Do you have a history of abuse or trauma that may impact your experience? No Are you currently employed? No Depression/Anxiety Screening: denies symptoms of depression. OB Depression and Anxiety Screening- This Encounter (since 06/04/2024) Over the past 2 weeks have you felt down, depressed, or hopeless? Negative Over the past two weeks, have you felt little interest or pleasure in doing things?? Negative Feeling nervous, anxious or on edge 0-Not at all Not being able to stop or control worrying 0-Not al all Anxiety Pre-Screening Total (If >/= 3 additional questions will be reviewed) 0 Genetic Screening: Partner present: No Patient verbalized knowledge of partner family health history: No Do you or your partner have any personal or family history of defects not previously discussed: No Do you have history of a complicated by anomaly, genetic condition, or demise: No Preeclampsia Risk Screening: Screening for prevention of preeclampsia: High risk factors: None Moderate risk ractors: None OB Risk Screening: Completed, no positive findings documented. Marital Status: Partner: Name: Dre Age: 24 Occupation: Spot Billing Clerk Gender: Male PAST MEDICAL HISTORY Diagnosis Date Depression Generalized anxiety disorder PAST SURGICAL HISTORY Procedure Laterality Date PAST SURGICAL HISTORY OF wisdome teeth Current Outpatient Medications Medication Sig Dispense Refill PNV no.95/ferrous fum/folic ac ( ORAL) Take by mouth. No current facility-administered medications for this visit. Allergies As of Date: 06/05/2024 Allergen Noted Reaction SULFA (SULFONAMIDE ANTIBIOTICS) 06/05/2024 Hives Fully Assessed 06/05/2024 Does patient have penicillin allergy: No REVIEW OF SYSTEMS: GENERAL: Negative for: Fever or Chills HEENT: Negative for: Headache, Impaired Vision, Ringing in Ears, Nosebleeds NECK: Negative for: Swelling, Pain, Stiffness RESPIRATORY: Negative for: Cough, Shortness of breath, Wheezing GASTROINTESTINAL: Negative for: Diarrhea, Blood in stool, + heartburn, constipation, nausea MUSCULOSKELETAL: Negative for: Muscle or joint pain, stiffness, Joint swelling NEUROLOGIC/PSYCHIATRIC: Negative for: Weakness, Paralysis, Numbness, Tingling, Tremor, Anxiety, Depression, Memory loss SKIN: Negative for: Rash, Itching GENITOURINARY: Negative for: vaginal itching, vaginal discharge, hematuria or dysuria SENSITIVE EXAM: The sensitive examination (more content not included)... [facility] 06-05-2024 History of Present illness Narrative Outpatient Physical Therapist offered: Patient declines. INITIAL OB ASSESSMENT HPI: Ashlee is a 19 year old White here to establish Obstetrical Care. Patient's last menstrual period was 03/30/2024. from OB Dating Form. was unplanned but accepted Complaints: nausea/vomiting OB History T0 L0 SAB0 IAB0 Ectopic0 Multiple0 Live Births0 Previous history: Prior : never History of 4th degree laceration: No History of shoulder dystocia: No History of Hypertensive disorders including pre-eclampsia or gestational hypertension: No History of gestational diabetes: No Patient's Risk Screening for delivery: Have you had a prior plata between 20w and 36w6d? No How many pregnancies have you had before? 0 Did you have a previous baby with a GBS Infection? No Please select all that apply for any prior : N/A MEDICAL/PSYCHOSOCIAL HISTORY: History of hemorrhage or bleeding concerns: No Thyroid Disease: No History of chronic hypertension: No History of pre-existing diabetes: No No results found for: ABORHD BMI 19.17 kg/(m^2) Last Pap: Never done History of abnormal pap: N/A Prior treatment for cervical dysplasia: none. Last HPV: N/A History of STDs: None Partner History of STDs: None Did you have a partner with Herpes? No Tobacco use: No E-Cigarette/Vaping Use: No Caffeine use: No Drug use: No Alcohol use: No Multivitamin with Folic acid: Yes Would refuse blood transfusion if medically necessary: No Social Needs: How often does this describe you? I don't have enough money to pay my bills: Never Within the past 12 months, have you worried that your food would run out before you had money to buy more? Never In the past 12 months, has lack of reliable transportation kept you from going to medical appointments or work, or from getting things needed for daily living? Never In the past 12 months, have you had any concerns about having a place to live, or about the condition or quality of your housing? Never Would you like more information on any of the following (please check all that apply)? Not interested Social History: Do you have any history of depression, anxiety, PTSD, or other mood problems? Yes Do you have a history of abuse or trauma that may impact your experience? No Are you currently employed? No Depression/Anxiety Screening: denies symptoms of depression. OB Depression and Anxiety Screening- This Encounter (since 06/04/2024) Over the past 2 weeks have you felt down, depressed, or hopeless? Negative Over the past two weeks, have you felt little interest or pleasure in doing things? Negative Feeling nervous, anxious or on edge 0-Not at all Not being able to stop or control worrying 0-Not al all Anxiety Pre-Screening Total (If >/= 3 additional questions will be reviewed) 0 Genetic Screening: Partner present: No Patient verbalized knowledge of partner family health history: No Do you or your partner have any personal or family history of defects not previously discussed: No Do you have history of a complicated by anomaly, genetic condition, or demise: No Preeclampsia Risk Screening: Screening for prevention of preeclampsia: High risk factors: None Moderate risk ractors: None OB Risk Screening: Completed, no positive findings documented. Marital Status: Partner: Name: Dre Age: 24 Occupation: Spot Billing Clerk Gender: Male PAST MEDICAL HISTORY Diagnosis Date Depression Generalized anxiety disorder PAST SURGICAL HISTORY Procedure Laterality Date PAST SURGICAL HISTORY OF wisdome teeth Current Outpatient Medications Medication Sig Dispense Refill PNV no.95/ferrous fum/folic ac ( ORAL) Take by mouth. No current facility-administered medications for this visit. Allergies As of Date: 06/05/2024 Allergen Noted Reaction SULFA (SULFONAMIDE ANTIBIOTICS) 06/05/2024 Hives Fully Assessed 06/05/2024 Does patient have penicillin allergy: No REVIEW OF SYSTEMS: GENERAL: Negative for: Fever or Chills HEENT: Negative for: Headache, Impaired Vision, Ringing in Ears, Nosebleeds NECK: Negative for: Swelling, Pain, Stiffness RESPIRATORY: Negative for: Cough, Shortness of breath, Wheezing GASTROINTESTINAL: Negative for: Diarrhea, Blood in stool, + heartburn, constipation, nausea MUSCULOSKELETAL: Negative for: Muscle or joint pain, stiffness, Joint swelling NEUROLOGIC/PSYCHIATRIC: Negative for: Weakness, Paralysis, Numbness, Tingling, Tremor, Anxiety, Depression, Memory loss SKIN: Negative for: Rash, Itching GENITOURINARY: Negative for: vaginal itching, vaginal discharge, hematuria or dysuria SENSITIVE EXAM: The sensitive examination was discussed with the Patient or Patient's Authorized Straightedge Man. As applicable, any other physician, advance practice provider, medical student, or other health professional student that will be observing or involved in the sensitive examination for educational or training purposes was discussed with the Patient or Authorized Straightedge Man. The Patient or Authorized Straightedge Man has agreed to proceed with the sensitive examination. (Sensitive examination includes inspection and/or palpation of the breasts, pelvis, prostate and anorectal regions). PHYSICAL EXAM: BP 110/62 Ht 5' 4.378 (1.64m) Wt 113 lb (51.3kg) LMP 03/30/2024 BMI 19.17 kg/(m^2). GENERAL: pleasant in no apparent distress DERMATOLOGY: Normal, without lesions, non-icteric, and non-hirsute NECK: Supple, full range of motion, no adenopathy, and thyroid normal CHEST: Normal inspiratory effort BREAST: soft, non-tender, symmetric, no dominant mass, normal nipple-areolar complex, no lymphadenopathy, and no nipple discharge ABDOMEN: soft, non-tender, and no masses NEURO: alert and oriented x3,exam grossly non-focal PELVIS: External genitalia normal without lesions. Perineal body intact. No vaginal or cervical lesions. Limited due patient discomfort. Clinical Pelvimetry: Unable to assess due to patient discomfort Limited OB ultrasound exam: single intrauterine and positive cardiac activity ASSESSMENT: 19 year old at 9w4d wks gestational age PLAN: 1) Patient oriented to practice. Patient given new OB orientation folder. Discussed nutrition, folic acid supplementation, dietary guidelines, exercise, smoking, alcohol, caffeine, and drug use. Discussed gestational weight gain guidelines. Discussed routine OB labs including STD/HIV. Discussed how to access Your guide to a health and the Airline Hostess. Discussed hemoglobin electrophoresis. Patient: Declines Reviewed midwifery and highway maintenance technician services that are available. 2) Screening: Hemoglobin A1C: ordered Baby Aspirin: The patient has been counseled about the potential benefits of low dose aspirin in and our recommendation that this be offered to all patients, regardless of whether they meet the high risk criteria specified above. She Accepts Aneuploidy Screening: Discussed aneuploidy screening, nuchal translucency/first trimester early anatomy ultrasound and NIPT. The risks/benefits and limitations of NIPT/aneuploidy screening were reviewed including the potential for false negative and false positive results. The availability of genetic counseling was reviewed. Information on aneuploidy screening was provided. The patient chooses to proceed with First trimester early anatomy ultrasound (12-13w6d) Myriad Carrier Screening: Discussed myriad carrier screening. We discussed the availability of professional-society guided carrier screening and reviewed the conditions screened and limitations of screening. The availability of genetic counseling was reviewed. Information on carrier screening was provided. The patient Declines 3) Patient offered option of Virtual Visits. Patient prefers in person visits. ACTIVE PROBLEM LIST Encounter for Supervision of Normal First in First Trimester - 06/05/2024 Comment: Care Checklist Vaccines: [] Flu vaccine [] declined [] RSV vaccine 32 0/7 - 36 6 (Feb - Jul) [] declined [] COVID vaccine [] declined [] TDaP 27-36 [] declined First trimester: [x] Dating US [] 1st tri labs [] Pap smear - unable to complete [] Carrier screening [x] declined [] NIPT screening - considering [] declined [x] First trimester anatomy scan [] declined [x] universal ASA ordered (start 12w-16w) [] declined [] M Power Consult [] not indicated [] declined Second trimester: [] Anatomy scan [] Mode of Delivery - [] Feeding - [] Pump ordered [] Diabetes screen [] CBC, RPR [] Behavioral Health Screening Third trimester (28-30 weeks): [] Consent [] Contraception [] Collection Teller [] TeamBirth handout Third trimester (36-40 weeks): [] GBS [] Presentation - [] Scheduled [] yes - Hibiclens, pre-op instructions, CBC, T&S ordered [] no [] H&P [] Preferences History of Depression - 06/05/2024 Comment: June 05, 2024 Taking 50 mg of Zoloft prescribed by PCP. Has been on Zoloft for 2 years. Reports doing well on this dose. Mental health resources provided. To update throughout . 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 Denies history of sexual trauma/abuse. Reports intercourse is painful at times. Suhail Swift APRN.CNP Nausea and Vomiting During - 06/05/2024 Comment: 06/05/24 Vitamin B6 and Unisom doses reviewed. To notify if prescription is needed. Suhail Swift APRN.CNP Heartburn During in First Trimester - 06/05/2024 Comment: June 05, 2024 Discussed Tums PRN Suhail Swift APRN.CNP Constipation During in First Trimester - 06/05/2024 Comment: June 05, 2024 Discussed Colace and increased hydration. Suhail Swift APRN.CNP Follow up in 3 weeks or sooner prn. Plan for NT scan between 12w0d and 13w6d gestation. Suhail Swift APRN.NUCLEAR LICENSING ENGINEER documented in this encounter [facility] Evaluation note Diagnosis Encounter for supervision of normal first in first trimester- Primary Supervision of normal first 9 weeks gestation of state, incidental with uncertain dates in first trimester Screening for cervical cancer Screening for malignant neoplasm of the cervix Nausea and vomiting during Vulvodynia Vulvodynia, unspecified Heartburn during in first trimester Constipation during in first trimester History of depression Personal history of other mental disorder [facility] Diagnosis Encounter for supervision of normal first in first trimester- Primary Supervision of normal first 13 weeks gestation of state, incidental [facility] Diagnosis Encounter for supervision of normal first in first trimester- Primary Supervision of normal first 21 weeks gestation of state, incidental [facility] Diagnosis Encounter for anatomic survey- Primary 21 weeks gestation of state, incidental [facility] Diagnosis Screening for diabetes mellitus- Primary 25 weeks gestation of (HCC) state, incidental Encounter for supervision of normal first in first trimester (HCC) Supervision of normal first [facility] Encounter for supervision of normal first in third trimester ([facility])- Primary Supervision of normal first 28 weeks gestation of ([facility]) state, incidental Rh negative state in antepartum period ([facility]) Rhesus isoimmunization affecting management of mother, antepartum condition History of depression Personal history of other mental disorder documented in this encounter [facility] note* Diagnosis Encounter for supervision of normal first in third trimester ([facility])- Primary Supervision of normal first 32 weeks gestation of ([facility]) state, incidental Uterine size-date discrepancy, third trimester ([facility]) Rh negative state in antepartum period ([facility]) Rhesus isoimmunization affecting management of mother, antepartum condition documented in this encounter [facility] note* Diagnosis Encounter for ultrasound to check growth ([facility])- Primary Encounter for routine screening for malformation using ultrasonics Uterine size-date discrepancy, third trimester ([facility]) 32 weeks gestation of ([facility]) state, incidental documented in this encounter [facility] note* Diagnosis Encounter for supervision of normal first in third trimester ([facility])- Primary Supervision of normal first 34 weeks gestation of ([facility]) state, incidental Uterine size-date discrepancy, third trimester ([facility]) Constipation during in first trimester ([facility]) Heartburn during in first trimester ([facility]) Rh negative state in antepartum period ([facility]) Rhesus isoimmunization affecting management of mother, antepartum condition Dysuria documented in this encounter [facility] note* Diagnosis 36 weeks gestation of ([facility])- Primary state, incidental GBS bacteriuria Encounter for supervision of normal first in third trimester ([facility]) Supervision of normal first * Assessment & Plan Note - Radha Ely MD - 12/12/2024 3:18 PM EDTAssociated Problem(s): GBS bacteriuria Orders: URINE OB DIP B/O * Assessment & Plan Note - Radha Ely MD - 12/12/2024 3:18 PM EDTAssociated Problem(s): Encounter for supervision of normal first in third trimester ([facility]) Orders: URINE OB DIP B/O documented in this encounter [facility] note* Diagnosis Encounter for ultrasound to check growth ([facility])- Primary Encounter for routine screening for malformation using ultrasonics 36 weeks gestation of (HCC) state, incidental affected by growth restriction (HCC) 36 weeks gestation of (HCC)- Primary state, incidental GBS bacteriuria Encounter for supervision of normal first in third trimester ([facility]) Supervision of normal first documented in this encounter [facility] note* Diagnosis 36 weeks gestation of (HCC)- Primary state, incidental GBS bacteriuria Encounter for supervision of normal first in third trimester ([facility]) Supervision of normal first 36 weeks gestation of (HCC)- Primary state, incidental GBS bacteriuria Poor growth affecting management of mother in third trimester, single or unspecified fetus ([facility]) documented in this encounter [facility] for referral (narrative)* Diagnostic Procedure Only (Routine) - Authorized Specialty Diagnoses / Procedures Referred By Contac t Referred To Contact [facility] Diagnoses with uncertain dates in first trimester Procedures NUCHAL TRANSLUCENCY WHI US NUCHAL TRANSLUCENCY 1ST GESTATION Suhail Swift APRN.CNP [address] [place] [address] [facility] [address] Referral ID Status Reason Start Date Expiration Date Visits Requested Visits Authorized [id number] Authorized Auto-Generat ed Referral 4 06/05/2025 1 1 * Diagnostic Procedure Only (Routine) - New Request Specialty Diagnoses / Procedures Referred By Contshawna t Referred To Contact [facility] Diagnoses with uncertain dates in first trimester Procedures OBSTETRIC ULTRASOUND WHI US PREG UTERUS AFTER 1ST TRIMEST GESTATION Suhail Swift APRN.CNP [address] [place] [address] [facility] [place] [address] Referral ID Status Reason Start Date Expiration Date Visits Requested Visits Authorized [id number] New Request Auto-Generat ed Referral 4 06/05/2025 1 1 [facility]* Consult, Test, Treat (Routine) - Authorized Specialty Diagnoses / Procedures Referred By Contac t Referred To Contact Traveling Sales Executive / MAINTENANCE SERVICES DISPATCHER Diagnoses Encounter for supervision of normal first (HCC) OB Routine Procedures OFFICE/OUTPATIENT EST PT MAY NOT REQ PHYS/QHP OFFICE/OUTPATIENT ESTABLISHED HIGH MDM 40 MIN EST WHI OB Suhail Swift APRN.CNP [address] [place] [address] Phone: tel: fax: Tim Neal MD [address] [place] [address] Phone: tel: fax:[phone] Referral ID Status Reason Start Date Expiration Date V isits Requested Visits Authorized [id number] Authorized 06/26/2024 06/06/2025 99 99 [facility] Summary Purpose Family History No Family History Records FoundNo Family History Records Found Advance Directives No Advanced Directives Records FoundNo Advanced Directives Records Found Additional Source Comments INFORMATION SOURCE (unrecogn ized section and content) DATE CREATED AUTHOR 05/09/2024 [facility] DATE CREATED AUTHOR AUTHOR'S ORGANIZ ATION 11/30/2024 [facility] Source Comments (unrecognize d section and content) In the event this informatio n is protected by the Federal Confidentiality of Alcohol and Drug Abuse Patient Records regulations: The Federal rules restrict any use of the information to criminally investigate or prosecute any alcohol or drug abuse patient.[facility] the event this information is protected by the Federal Confidentiality of Alcohol and Drug Abuse Patient Records regulations: The Federal rules restrict any use of the information to criminally investigate or prosecute any alcohol or drug abuse patient.[facility] the event this information is protected by the Federal Confidentiality of Alcohol and Drug Abuse Patient Records regulations: The Federal rules restrict any use of the information to criminally investigate or prosecute any alcohol or drug abuse patient.[facility] the event this information is protected by the Federal Confidentiality of Alcohol and Drug Abuse Patient Records regulations: The Federal rules restrict any use of the information to criminally investigate or prosecute any alcohol or drug abuse patient.[facility] the event this information is protected by the Federal Confidentiality of Alcohol and Drug Abuse Patient Records regulations: The Federal rules restrict any use of the information to criminally investigate or prosecute any alcohol or drug abuse patient.[facility] Hospital[facility] the event this information is protected by the Federal Confidentiality of Alcohol and Drug Abuse Patient Records regulations: The Federal rules restrict any use of the information to criminally investigate or prosecute any alcohol or drug abuse patient.[facility] Hospital[facility] the event this information is protected by the Federal Confidentiality of Alcohol and Drug Abuse Patient Records regulations: The Federal rules restrict any use of the information to criminally investigate or prosecute any alcohol or drug abuse patient.[facility] Hospital[facility] the event this information is protected by the Federal Confidentiality of Alcohol and Drug Abuse Patient Records regulations: The Federal rules restrict any use of the information to criminally investigate or prosecute any alcohol or drug abuse patient.[facility] Hospital[facility] the event this information is protected by the Federal Confidentiality of Alcohol and Drug Abuse Patient Records regulations: The Federal rules restrict any use of the information to criminally investigate or prosecute any alcohol or drug abuse patient.[facility] Hospital[facility] the event this information is protected by the Federal Confidentiality of Alcohol and Drug Abuse Patient Records regulations: The Federal rules restrict any use of the information to criminally investigate or prosecute any alcohol or drug abuse patient.[facility] Hospital[facility] the event this information is protected by the Federal Confidentiality of Alcohol and Drug Abuse Patient Records regulations: The Federal rules restrict any use of the information to criminally investigate or prosecute any alcohol or drug abuse patient.[facility] Hospital[facility] the event this information is protected by the Federal Confidentiality of Alcohol and Drug Abuse Patient Records regulations: The Federal rules restrict any use of the information to criminally investigate or prosecute any alcohol or drug abuse patient.[facility] Hospital[facility] the event this information is protected by the Federal Confidentiality of Alcohol and Drug Abuse Patient Records regulations: The Federal rules restrict any use of the information to criminally investigate or prosecute any alcohol or drug abuse patient.[facility] Hospital[facility] the event this information is protected by the Federal Confidentiality of Alcohol and Drug Abuse Patient Records regulations: The Federal rules restrict any use of the information to criminally investigate or prosecute any alcohol or drug abuse patient.[facility] Reason for Visit (unrecogniz ed section and content) Reason Onset Date Comments Care 12/13/2024 Specialty Diagnoses / Procedures Referred By Tracee kuo Referred To Contact Traveling Sales Executive / MAINTENANCE SERVICES DISPATCHER Diagnoses Encounter for supervision of normal first (HCC) OB Routine Procedures OFFICE/OUTPATIENT EST PT MAY NOT REQ PHYS/QHP OFFICE/OUTPATIENT ESTABLISHED HIGH MDM 40 MIN EST WHI Suhail Solis APRN.NUCLEAR LICENSING ENGINEER [address] [place] [address] Phone: tel: fax: Tim Neal MD [address] [place] [address] Phone: tel: fax: Referral ID Status Reason Start Date Expiration Date V isits Requested Visits Authorized [id number] Authorized 06/26/2024 06/06/2025 99 99 Reason Onset Date Comments Care 12/12/2024 Specialty Diagnoses / Procedures Referred By Tracee kuo Referred To Contact Traveling Sales Executive / MAINTENANCE SERVICES DISPATCHER Diagnoses Encounter for supervision of normal first (HCC) OB Routine Procedures OFFICE/OUTPATIENT EST PT MAY NOT REQ PHYS/QHP OFFICE/OUTPATIENT ESTABLISHED HIGH MDM 40 MIN EST WHSuhail Lovell APRN.NUCLEAR LICENSING ENGINEER [address] [place] [address] Phone: tel: fax: Tim Neal MD [address] [place] [address] Phone: tel: fax: Referral ID Status Reason Start Date Expiration Date V isits Requested Visits Authorized [id number] Authorized 06/26/2024 06/06/2025 99 99 Reason Onset Date Comments Care 10/12/2024 Reason Comments Initial OB Visit Reason Onset Date Comments Care 07/04/2024 Reason Onset Date Comments Care 08/24/2024 Specialty Diagnoses / Procedures [facility] To Contact Traveling Sales Executive / MAINTENANCE SERVICES DISPATCHER Diagnoses Encounter for supervision of normal first OB Routine Procedures OFFICE/OUTPATIENT EST PT MAY NOT REQ PHYS/QHP OFFICE/OUTPATIENT ESTABLISHED HIGH MDM 40 MIN EST WHI OB Suhail Swift APRN.DOREEN [address] [place] [address] Phone: tel: fax: Tim Neal MD [address] [place] [address] Phone: tel: fax: Reason Comments [place] Specialty Diagnoses / Procedures Referred By Tracee t Referred To Contact [facility] Diagnoses with uncertain dates in first trimester Procedures OBSTETRIC ULTRASOUND WHI US PREG UTERUS AFTER 1ST TRIMEST GESTATION Suhail Swift APRN.NUCLEAR LICENSING ENGINEER [address] [place] [address] Phone: tel: fax: [facility] [address] [place] [address] Referral ID Status Reason Start Date Expiration Date V isits Requested Visits Authorized [id number] Closed Auto-Generate d Referral 06/05/2024 06/05/2025 1 1 Reason Onset Date Comments Care 09/22/2024 Specialty Diagnoses / Procedures [facility] Contact [facility] Diagnoses Encounter for supervision of normal first in third trimester (HCC) 30 weeks gestation of (HCC) Uterine size-date discrepancy, third trimester (HCC) Procedures OBSTETRIC ULTRASOUND WHI US PREG UTERUS AFTER 1ST TRIMEST GESTATION Tim Neal MD [address] [place] [address] Phone: tel: fax: [address] [phone] Referral ID Status Reason Start Date Expiration Date V isits Requested Visits Authorized [id number] Closed Auto-Generate d Referral 10/26/2024 10/26/2025 1 1 Reason Onset Date Comments Care 11/27/2024 Specialty Diagnoses / Procedures Referred By Tracee t Referred To Contact Traveling Sales Executive / MAINTENANCE SERVICES DISPATCHER Diagnoses Encounter for supervision of normal first ([facility]) OB Routine Procedures OFFICE/OUTPATIENT EST PT MAY NOT REQ PHYS/QHP OFFICE/OUTPATIENT ESTABLISHED HIGH MDM 40 MIN EST WHI OB Suhail Swift APRN.NUCLEAR LICENSING ENGINEER [address] [place] [address] Phone: tel: fax: Tim Neal MD [address] [place] [address] Phone: tel: fax: Specialty Diagnoses / Procedures Referred By Tracee kuo Referred To Contact [facility] Diagnoses with uncertain dates in first trimester ([facility]) Procedures NUCHAL TRANSLUCENCY WHI US NUCHAL TRANSLUCENCY 1ST GESTATION Suhail Swift APRN.NUCLEAR LICENSING ENGINEER [address] [place] [address] Phone: tel: fax: [address] [phone] Referral ID Status Reason Start Date Expiration Date V isits Requested Visits Authorized [id number] Closed Auto-Generate d Referral 06/05/2024 06/05/2025 1 Reason Onset Date Comments Care 12/13/2024 FOR RECORDS PERTAINING TO PATIENTS WHO ARE OR HAVE BEEN ENROLLED IN A CHEMICAL DEPENDENCY/SUBSTANCEABUSE PROGRAM, SOME INFORMATION MAY BE OMITTED. This clinical summary was aggregated from multiple sources. Caution should be exercised in using it in the provision of clinical care. This summary normalizes information from multiple sources, and as a consequence, information in this document may materially change the coding, format and clinical context of patient data. In addition, data may be omitted in some cases. CLINICAL DECISIONS SHOULD BE BASED ON THE PRIMARY CLINICAL RECORDS. [employer] provides no warranty or guarantee of the accuracy or completeness of information in this document.
--- OUTSIDE RECORDS SUMMARY | 2024-12-14 22:38 | XMS RPT_ITS | CCD ---
Author Organization [facility] Care Team Providers Care Bible Teacher Name Role Phone Friend, Rohan Attending [...] [SULFA (SULFONAMIDE ANTIBIOTICS)] Drug allergy (disorder) 4 [facility] Repository (14 sources) Sulfonamides (Antibiotic) Drug Intolerance 4 [facility] Medications Current Medications Medication Drug Class(es) [...] trimester; Translations: [Uterine size-date discrepancy, third trimester ([facility])] Onset: 10-26-2024 Episodic Other complications of (1 [...] unspecified; Translations: [Constipation during in first trimester ([facility])] Onset: 06-05-2024 Episodic Other gastrointestinal disorders (1 source) Heartburn; Translations: [Heartburn during in first trimester ([facility])] Onset: 06-05-2024 Episodic Other and delivery including normal (20 sources) Normal ; Translations: [Encounter for supervision of normal first , first trimester] Onset: 06-05-2024 06-05-2024 Episodic Residual codes; unclassified (1 source) Unspecified blood type, Rh negative; Translations: [Rh negative state in antepartum period ([facility])] Onset: 07-05-2024 Episodic Screening and history of mental health and substance abuse codes (12 sources) H/O: depression; Translations: [Personal history of other mental and behavioral disorders] Onset: 06-05-2024 06-05-2024 Episodic Unclassified (1 source) Constipation during in first trimester ([facility]) 11-27-2024 Results Test Name Value Interpretation Reference Range Facil ity nuchal translucency me asured by USon 12-12-2024 [facility] Radiology Study observation (narrative) [facility] URINE OB DIP B/Oon 5 Glucose Ql (U) Negative Neg mg/dL [facility] Interpretation and review of laboratory results Normal [facility] Protein.monoclonal (U) [Mass/Vol] 30 mg/dL Neg [facility] Bacteria Ur Culton 5 Bacteria identified Cx [...] relevant if the individual is . Normal [facility] Comment on above: Performed By: #### 5 7021-8 #### [facility] CLIA [id number] [address] [place] [address] [place] [facility] UA DIP, URINE (POC)on 2024 BILIRUBIN UA (POCT) Negative Negative [facility] CLARITY UA (POCT) [facility] COLOR UA (POCT) Yellow [facility] GLUCOSE UA (POCT) Negative Negative mg/dL [facility] Hemoglobin Ql (U) Negative Negative [facility] Interpretation and review of laboratory results Abnormal [facility] KETONE UA (POCT) Negative Negative mg/dL [facility] LEUKOCYTES UA (POCT) Trace Abnormal Negative [facility] NITRITE UA (POCT) Negative Negative [facility] PH UA (POCT) 6 4.5 - 8.0 [facility] Protein Ql (U) Negative Negative mg/dL [facility] SPECIFIC GRAVITY UA (POCT) 1.02 1.005 - 1.030 [facility] UROBILINOGEN UA (POCT) 0.2 Normal E.U./dL [facility] Location:[facility], [address] [place] [address], [place], [place], [id number] [place] [address] POINT OF CARE [facility] URINE OB DIP B/Oon 5 Glucose Ql (U) Negative Neg mg/dL [facility] Interpretation and review of laboratory results Normal [facility] Protein.monoclonal (U) [Mass/Vol] Negative Neg mg/dL [facility] Examination level ultrasound on 11-09-2024 [facility] Radiology Study observation (narrative) [facility] CBC W Auto Differential pane l (Bld)on 10-12-2024 Basophils (Bld) [#/Vol] 10*3/uL Normal <0.11 [facility] Comment on above: Order Comment: Speci men Type: BLOOD SPECIMEN Ordering Facility: [facility] Address: [address] [place] [address] Performed By: #### 5 7021-8 #### [facility] CLIA [id number] [address] [place] [address] [place] Basophils/100 WBC (Bld) 0.2 % Normal [facility] Comment on above: Order Comment: Speci men Type: BLOOD SPECIMEN Ordering Facility: [facility] Address: [address] [place] [address] Performed By: #### 5 7021-8 #### [facility] CLIA [id number] [address] [place] [address] [place] Differential cell count method Nom (Bld) Auto Normal [facility] Comment on above: Order Comment: Speci men Type: BLOOD SPECIMEN Ordering Facility: [facility] Address: [address] [place] [address] Performed By: #### 5 7021-8 #### [facility] CLIA [id number] [address] [place] [address] [place] Eosinophils (Bld) [#/Vol] 0.04 10*3/uL Normal <0.46 [facility] Comment on above: Order Comment: Speci men Type: BLOOD SPECIMEN Ordering Facility: [facility] Address: [address] [place] [address] Performed By: #### 5 7021-8 #### [facility] CLIA [id number] [address] [place] [address] [place] Eosinophils/100 WBC (Bld) 0.5 % Normal [facility] Comment on above: Order Comment: Speci men Type: BLOOD SPECIMEN Ordering Facility: [facility] Address: [address] [place] [address] Performed By: #### 5 7021-8 #### [facility] [id number] [address] [place] [address] [place] Erythrocyte distribution width (RBC) [Ratio] 13.2 % Normal 11.5-15.0 [facility] Comment on above: Order Comment: Speci men Type: BLOOD SPECIMEN Ordering Facility: [facility] Address: [address] [place] [address] Performed By: #### 5 7021-8 #### [facility] [id number] [address] [place] [address] [place] Hematocrit (Bld) [Volume fraction] 37.4 % Normal 36.0-46.0 [facility] Comment on above: Order Comment: Speci men Type: BLOOD SPECIMEN Ordering Facility: [facility] Address: [address] [place] [address] Performed By: #### 5 7021-8 #### [facility] [id number] [address] [place] [address] [place] Hemoglobin (Bld) [Mass/Vol] 13.2 g/dL Normal 11.5-15.5 [facility] Comment on above: Order Comment: Speci men Type: BLOOD SPECIMEN Ordering Facility: [facility] Address: [address] [place] [address] Performed By: #### 5 7021-8 #### [facility] [id number] [address] [place] [address] [place] Immature granulocytes (Bld) [#/Vol] 0.03 10*3/uL Normal <0.10 [facility] Comment on above: Order Comment: Speci men Type: BLOOD SPECIMEN Ordering Facility: [facility] Address: [address] [place] [address] Performed By: #### 5 7021-8 #### [facility] CLIA [id number] [address] [place] [address] [place] Immature granulocytes/100 WBC (Bld) 0.3 % Normal [facility] Comment on above: Order Comment: Speci men Type: BLOOD SPECIMEN Ordering Facility: [facility] Address: [address] [place] [address] Performed By: #### 5 7021-8 #### [facility] [id number] [address] [place] [address] [place] Lymphocytes (Bld) [#/Vol] 1.69 10*3/uL Normal 1.00-4.00 [facility] Comment on above: Order Comment: Speci men Type: BLOOD SPECIMEN Ordering Facility: [facility] Address: [address] [place] [address] Performed By: #### 5 7021-8 #### [facility] [id number] [address] [place] [address] [place] Lymphocytes/100 WBC (Bld) 19.2 % Normal [facility] Comment on above: Order Comment: Speci men Type: BLOOD SPECIMEN Ordering Facility: [facility] Address: [address] [place] [address] Performed By: #### 5 7021-8 #### [facility] [id number] [address] [place] [address] [place] MCH (RBC) [Entitic mass] 31.8 pg Normal 26.0-34.0 [facility] Comment on above: Order Comment: Speci men Type: BLOOD SPECIMEN Ordering Facility: [facility] Address: [address] [place] [address] Performed By: #### 5 7021-8 #### [facility] CLIA [id number] [address] [place] [address] [place] MCHC (RBC) [Mass/Vol] 35.3 g/dL Normal 30.5-36.0 [facility] Comment on above: Order Comment: Speci men Type: BLOOD SPECIMEN Ordering Facility: [facility] Address: [address] [place] [address] Performed By: #### 5 7021-8 #### [facility] CLIA [id number] [address] [place] [address] [place] MCV (RBC) [Entitic vol] 90.1 fL Normal 80.0-100.0 [facility] Comment on above: Order Comment: Speci men Type: BLOOD SPECIMEN Ordering Facility: [facility] Address: [address] [place] [address] Performed By: #### 5 7021-8 #### [facility] CLIA [id number] [address] [place] [address] [place] Monocytes (Bld) [#/Vol] 0.51 10*3/uL Normal <0.87 [facility] Comment on above: Order Comment: Speci men Type: BLOOD SPECIMEN Ordering Facility: [facility] Address: [address] [place] [address] Performed By: #### 5 7021-8 #### [facility] CLIA [id number] [address] [place] [address] [place] Monocytes/100 WBC (Bld) 5.8 % Normal [facility] Comment on above: Order Comment: Speci men Type: BLOOD SPECIMEN Ordering Facility: [facility] Address: [address] [place] [address] Performed By: #### 5 7021-8 #### [facility] CLIA [id number] [address] [place] [address] [place] Neutrophils (Bld) [#/Vol] 6.51 10*3/uL Normal 1.45-7.50 [facility] Comment on above: Order Comment: Speci men Type: BLOOD SPECIMEN Ordering Facility: [facility] Address: [address] [place] [address] Performed By: #### 5 7021-8 #### [facility] CLIA [id number] [address] [place] [address] [place] Neutrophils/100 WBC (Bld) 74.0 % Normal [facility] Comment on above: Order Comment: Speci men Type: BLOOD SPECIMEN Ordering Facility: [facility] Address: [address] [place] [address] Performed By: #### 5 7021-8 #### [facility] CLIA [id number] [address] [place] [address] [place] Nucleated RBC (Bld) [#/Vol] 10*3/uL Normal <0.01 [facility] Comment on above: Order Comment: Speci men Type: BLOOD SPECIMEN Ordering Facility: [facility] Address: [address] [place] [address] Performed By: #### 5 7021-8 #### [facility] [id number] [address] [place] [address] [place] Nucleated RBC/100 WBC (Bld) [Ratio] 0.0 /100 WBC Normal [facility] Comment on above: Order Comment: Speci men Type: BLOOD SPECIMEN Ordering Facility: [facility] Address: [address] [place] [address] Performed By: #### 5 7021-8 #### [facility] [id number] [address] [place] [address] [place] Platelet mean volume (Bld) [Entitic vol] 10.5 fL Normal 9.0-12.7 [facility] Comment on above: Order Comment: Speci men Type: BLOOD SPECIMEN Ordering Facility: [facility] Address: [address] [place] [address] Performed By: #### 5 7021-8 #### [facility] CLIA [id number] [address] [place] [address] [place] Platelets (Bld) [#/Vol] 239 10*3/uL Normal 150-400 [facility] Comment on above: Order Comment: Speci men Type: BLOOD SPECIMEN Ordering Facility: [facility] Address: [address] [place], [place] [address] Performed By: #### 5 7021-8 #### [facility] CLIA [id number] [address] [place] [address] [place] RBC (Bld) [#/Vol] 4.15 10*6/uL Normal 3.90-5.20 [facility] Comment on above: Order Comment: Speci men Type: BLOOD SPECIMEN Ordering Facility: [facility] Address: [address] [place] [address] Performed By: #### 5 7021-8 #### [facility] CLIA [id number] [address] [place] [address] [place] WBC (Bld) [#/Vol] 8.80 10*3/uL Normal 3.70-11.00 [facility] Comment on above: Order Comment: Speci men Type: BLOOD SPECIMEN Ordering Facility: [facility] Address: [address] [place] [address] Performed By: #### 5 7021-8 #### [facility] CLIA [id number] [address] [place] [address] [place] GESTATIONAL GLUCOSE SCREEN, 1-HOUR, 50 GRAM, NON-FASTINGon 10-12-2024 Glucose [Mass/Vol] 80 mg/dL Normal 74-134 [facility] Comment on above: Order Comment: Speci men Type: BLOOD SPECIMEN Ordering Facility: [facility] Address: [address] [place] [address] Result Comment: [facility] Congress of Obstetricians and Gynecologists (Perez/Anayeli) guidelines state a gestational diabetes mellitus positive screen is made, in women not previously diagnosed with overt diabetes, when the 1 hr plasma glucose level is equal to or above 140 mg/dL. The [facility] Dermat[facility] Physician and [facility] [place] recommends a 135 mg/dL cutoff. Performed By: #### G LTGST #### [facility] CLIA [id number] [address] [place] [address] [place] Reagin and Treponema pallidu m IgG and IgM [Interp]on 10-12-2024 T. pallidum IgG+IgM IA Ql (S) Non-Reactive Normal Nonreactive [facility] Comment on above: Order Comment: Speci men Type: BLOOD SPECIMEN Ordering Facility: [facility] Address: [address] [place] [address] Performed By: #### 7 3752-8 #### [facility] CLIA [id number] [address] [place] [address] [place] Reagin+T pallidum IgG+IgM Se rPl-Impon 10-12-2024 Reagin and Treponema pallidum IgG and IgM [Interp] Cannot exclude recent Treponemal infection if specimen collected within 7-10 days after appearance of suspect lesions or 2-3 weeks after an exposure. Clinical correlation is required. Normal [facility] Comment on above: Order Comment: Speci men Type: BLOOD SPECIMEN Ordering Facility: [facility] Address: [address] [place] [address] Performed By: #### 7 3752-8 #### [facility] CLIA [id number] [address] [place] [address] [place] TYPE + SCREEN PRENATALon ABO O Normal [facility] Comment on above: Order Comment: Speci men Type: BLOOD SPECIMEN Ordering Facility: [facility] Address: [address] [place] [address] Performed By: #### 5 7021-8 #### [facility] CLIA [id number] [address] [place] [address] Rh Nom (Bld) Negative Normal [facility] Comment on above: Order Comment: Speci men Type: BLOOD SPECIMEN Ordering Facility: [facility] Address: [address] [place] [address] Performed By: #### 5 7021-8 #### [facility] CLIA [id number] [address] [place] [address] TYPE AND SCREEN EXPIRATION 10/15/2024 23:59 Normal [facility] Comment on above: Order Comment: Speci men Type: BLOOD SPECIMEN Ordering Facility: [facility] Address: [address] [place] [address] Performed By: #### 5 7021-8 #### [facility] CLIA [id number] [address] [place] [address] Examination level ultrasound on 08-24-2024 Indication Standard [...] 15 oz EFW by: Hadlock (HC-AC-FL) Extended Ortho Nurse 7.6 mm CM 5.0 mm 41% Nicolaides [...] normal LVOT view: normal 3-vessel view: normal 1-jkpofd-kypdthj view: normal Heart / Thorax Situs: situs [...] By: Rosa Isela Patrick M.D. MATERNAL MEDICINE [facility] Radiology Study observation (narrative) [facility] CBC W Auto Differential pane l (Bld)on 07-04-2024 Basophils (Bld) [#/Vol] 10*3/uL Normal <0.11 [facility] Comment on above: Order Comment: Speci men Type: BLOOD SPECIMEN Ordering Facility: [facility] Address: [address] [place] [address] Performed By: #### 5 7021-8 #### [facility] CLIA [id number] [address] [place] [address] [place] Basophils/100 WBC (Bld) 0.2 % Normal [facility] Comment on above: Order Comment: Speci men Type: BLOOD SPECIMEN Ordering Facility: [facility] Address: [address] [id number] Performed By: #### 5 7021-8 #### [facility] CLIA [id number] [address] [place] [address] [place] Differential cell count method Nom (Bld) Auto Normal [facility] Comment on above: Order Comment: Speci men Type: BLOOD SPECIMEN Ordering Facility: [facility] Address: [address] [place] [address] Performed By: #### 5 7021-8 #### [facility] CLIA [id number] [address] [place] [address] [place] Eosinophils (Bld) [#/Vol] 0.09 10*3/uL Normal <0.46 [facility] Comment on above: Order Comment: Speci men Type: BLOOD SPECIMEN Ordering Facility: [facility] Address: [address] [place] [address] Performed By: #### 5 7021-8 #### [facility] CLIA [id number] [address] [place] [address] [place] Eosinophils/100 WBC (Bld) 0.9 % Normal [facility] Comment on above: Order Comment: Speci men Type: BLOOD SPECIMEN Ordering Facility: [facility] Address: [address] [place] [address] Performed By: #### 5 7021-8 #### [facility] CLIA [id number] [address] [place] [address] [place] Erythrocyte distribution width (RBC) [Ratio] 13.0 % Normal 11.5-15.0 [facility] Comment on above: Order Comment: Speci men Type: BLOOD SPECIMEN Ordering Facility: [facility] Address: [address] [place] [address] Performed By: #### 5 7021-8 #### [facility] CLIA [id number] [address] [place] [address] [place] Hematocrit (Bld) [Volume fraction] 36.1 % Normal 36.0-46.0 [facility] Comment on above: Order Comment: Speci men Type: BLOOD SPECIMEN Ordering Facility: [facility] Address: [address] [place] [address] Performed By: #### 5 7021-8 #### [facility] CLIA [id number] [address] [place] [address] [place] Hemoglobin (Bld) [Mass/Vol] 12.7 g/dL Normal 11.5-15.5 [facility] Comment on above: Order Comment: Speci men Type: BLOOD SPECIMEN Ordering Facility: [facility] Address: [address] [place] [address] Performed By: #### 5 7021-8 #### [facility] CLIA [id number] [address] [place] [address] [place] Immature granulocytes (Bld) [#/Vol] 0.03 10*3/uL Normal <0.10 [facility] Comment on above: Order Comment: Speci men Type: BLOOD SPECIMEN Ordering Facility: [facility] Address: [address] [place] [address] Performed By: #### 5 7021-8 #### [facility] CLIA [id number] [address] [place] [address] [place] Immature granulocytes/100 WBC (Bld) 0.3 % Normal [facility] Comment on above: Order Comment: Speci men Type: BLOOD SPECIMEN Ordering Facility: [facility] Address: [address] [place] [address] Performed By: #### 5 7021-8 #### [facility] CLIA [id number] [address] [place] [address] [place] Lymphocytes (Bld) [#/Vol] 1.80 10*3/uL Normal 1.00-4.00 [facility] Comment on above: Order Comment: Speci men Type: BLOOD SPECIMEN Ordering Facility: [facility] Address: [address] [place], [place] [address] Performed By: #### 5 7021-8 #### [facility] CLIA [id number] [address] [place] [address] Lymphocytes/100 WBC (Bld) 18.0 % Normal [facility] Comment on above: Order Comment: Speci men Type: BLOOD SPECIMEN Ordering Facility: [facility] Address: [address] [place] [address] Performed By: #### 5 7021-8 #### [facility] CLIA [id number] [address] [place] [address] [place] MCH (RBC) [Entitic mass] 30.5 pg Normal 26.0-34.0 [facility] Comment on above: Order Comment: Speci men Type: BLOOD SPECIMEN Ordering Facility: [facility] Address: [address] [place] [address] Performed By: #### 5 7021-8 #### [facility] CLIA [id number] [address] [place] [address] [place] MCHC (RBC) [Mass/Vol] 35.2 g/dL Normal 30.5-36.0 [facility] Comment on above: Order Comment: Speci men Type: BLOOD SPECIMEN Ordering Facility: [facility] Address: [address] [place] [address] Performed By: #### 5 7021-8 #### [facility] CLIA [id number] [address] [place] [address] [place] MCV (RBC) [Entitic vol] 86.8 fL Normal 80.0-100.0 [facility] Comment on above: Order Comment: Speci men Type: BLOOD SPECIMEN Ordering Facility: [facility] Address: [address] [place] [address] Performed By: #### 5 7021-8 #### [facility] CLIA [id number] [address] [place] [address] [place] Monocytes (Bld) [#/Vol] 0.45 10*3/uL Normal <0.87 [facility] Comment on above: Order Comment: Speci men Type: BLOOD SPECIMEN Ordering Facility: [facility] Address: [address] [place] [address] Performed By: #### 5 7021-8 #### [facility] CLIA [id number] [address] [place] [address] [place] Monocytes/100 WBC (Bld) 4.5 % Normal [facility] Comment on above: Order Comment: Speci men Type: BLOOD SPECIMEN Ordering Facility: [facility] Address: [address] [place] [address] Performed By: #### 5 7021-8 #### [facility] CLIA [id number] [address] [place] [address] [place] Neutrophils (Bld) [#/Vol] 7.62 10*3/uL High 1.45-7.50 [facility] Comment on above: Order Comment: Speci men Type: BLOOD SPECIMEN Ordering Facility: [facility] Address: [address] [place] [address] Performed By: #### 5 7021-8 #### [facility] CLIA [id number] [address] [place] [address] [place] Neutrophils/100 WBC (Bld) 76.1 % Normal [facility] Comment on above: Order Comment: Speci men Type: BLOOD SPECIMEN Ordering Facility: [facility] Address: [address] [place] [address] Performed By: #### 5 7021-8 #### [facility] CLIA [id number] [address] [place] [address] [place] Nucleated RBC (Bld) [#/Vol] 10*3/uL Normal <0.01 [facility] Comment on above: Order Comment: Speci men Type: BLOOD SPECIMEN Ordering Facility: [facility] Address: [address] [place] [address] Performed By: #### 5 7021-8 #### [facility] CLIA [id number] [address] [place] [address] [place] Nucleated RBC/100 WBC (Bld) [Ratio] 0.0 /100 WBC Normal [facility] Comment on above: Order Comment: Speci men Type: BLOOD SPECIMEN Ordering Facility: [facility] Address: [address] [place] [address] Performed By: #### 5 7021-8 #### [facility] CLIA [id number] [address] [place] [address] [place] Platelet mean volume (Bld) [Entitic vol] 9.5 fL Normal 9.0-12.7 [facility] Comment on above: Order Comment: Speci men Type: BLOOD SPECIMEN Ordering Facility: [facility] Address: [address] [place] [address] Performed By: #### 5 7021-8 #### [facility] CLIA [id number] [address] [place] [address] [place] Platelets (Bld) [#/Vol] 231 10*3/uL Normal 150-400 [facility] Comment on above: Order Comment: Speci men Type: BLOOD SPECIMEN Ordering Facility: [facility] Address: [address] [place] [address] Performed By: #### 5 7021-8 #### [facility] CLIA [id number] [address] [place] [address] [place] RBC (Bld) [#/Vol] 4.16 10*6/uL Normal 3.90-5.20 [facility] Comment on above: Order Comment: Speci men Type: BLOOD SPECIMEN Ordering Facility: [facility] Address: [address] [place] [address] Performed By: #### 5 7021-8 #### [facility] CLIA [id number] [address] [place] [address] [place] WBC (Bld) [#/Vol] 10.01 10*3/uL Normal 3.70-11.00 [facility] Comment on above: Order Comment: Speci men Type: BLOOD SPECIMEN Ordering Facility: [facility] Address: [address] [place] [address] Performed By: #### 5 7021-8 #### [facility] CLIA [id number] [address] [place] [address] [place] HBV surface Ag Ser Qlon 06-08 HBV surface Ag Ql (S) Negative Normal Negative [facility] Comment on above: Order Comment: Speci men Type: BLOOD SPECIMEN Ordering Facility: [facility] Address: [address] [place] [address] Performed By: #### 5 195-3, 67009-8, 80640-7 #### [facility] CLIA [id number] [address] [place] [address] [place] HCV Ab Ser Qlon 07-04-2024 HCV Ab Ql (S) Negative Normal Negative [facility] Comment on above: Order Comment: Speci men Type: BLOOD SPECIMEN Ordering Facility: [facility] Address: [address] [place] [address] Result Comment: The result suggests no evidence of active infection with Hepatitis C virus. Should recent infection be suspected, repeat testing may be considered 4-6 weeks after this draw. Performed By: #### 5 7021-8 #### [facility] CLIA [id number] [address] [place] [address] [place] HIV 1+2 Ab IA Qlon HIV 1 and 2 Ab IA.rapid Nom (S/P/Bld) Normal [facility] Comment on above: Order Comment: Speci men Type: BLOOD SPECIMEN Ordering Facility: [facility] Address: [address] [place] [address] Result Comment: Test not indicated. Performed By: #### 5 195-3, 49784-7, 68132-0 #### [facility] CLIA [id number] [address] [place] [address] [place] HIV 1+2 Ab+HIV1 p24 Ag IA Ql Non-Reactive Normal Nonreactive [facility] Comment on above: Order Comment: Speci men Type: BLOOD SPECIMEN Ordering Facility: [facility] Address: [address] [place] [address] Performed By: #### 5 195-3, 25553-7, 01698-8 #### [facility] CLIA [id number] [address] [place] [address] [place] HIV immunoassay testing algorithm interpretation (S/P/Bld) [Interp] Normal [facility] Comment on above: Order Comment: Speci men Type: BLOOD SPECIMEN Ordering Facility: [facility] Address: [address] [place] [address] Result Comment: No e vidence of HIV-1 or HIV-2 infection. Should recent infection be suspected, repeat testing may be considered 2-3 weeks after this draw. [place] Rev. Code 3701.243(E): This information has been [...] or diagnoses. Performed By: #### 5 195-3, 69418-0, 49505-4 #### [facility] CLIA [id number] [address] [place] [address] [place] HbA1c (Bld)on 07-04-2024 Average glucose Estimated from glycated hemoglobin (Bld) [Mass/Vol] 85 mg/dL Normal [facility] Comment on above: Order Comment: Speci men Type: BLOOD SPECIMEN Ordering Facility: [facility] Address: [address] [place] [address] Result Comment: eAG: (Estimated average glucose) is a calculated value from HgbA1c and is insurance sales representative of the average blood glucose level in the last 2-3 month period. Performed By: #### 5 5454-3 #### [facility] CLIA [id number] [address] [place] [address] [place] HbA1c (Bld) [Mass fraction] 4.6 % Normal 4.3-5.6 [facility] Comment on above: Order Comment: Speci [facility] Type: BLOOD SPECIMEN Ordering Facility: [facility] Address: [address] [place] [address] Result Comment: [place] Diabetes Association guidelines indicate that patients with HgbA1c in the range 5.7-6.4% are at increased risk for development of diabetes, and intervention by lifestyle modification may be beneficial. HgbA1c greater or equal to 6.5% is considered diagnostic of diabetes. Performed By: #### 5 5454-3 #### [facility] CLIA [id number] [address] [place] [address] [place] RUBELLA IGG ANTIBODYon 07-04 RUBELLA IGG AB, QUAL Positive Normal Positive [facility] Comment on above: Order Comment: Speci [facility] Type: BLOOD SPECIMEN Ordering Facility: [facility] Address: [address] [place] [address] Result Comment: The result suggests recent or past exposure to Rubella virus or history of Rubella vaccination. Positive result may also be seen due to presence of passively-transferred antibodies. Please correlate with patient's history. Performed By: #### R UBIGG #### [facility] CLIA [id number] [address] [place] [address] [place] Reagin and Treponema pallidu m IgG and IgM [Interp]on 07-04-2024 T. pallidum IgG+IgM IA Ql (S) Non-Reactive Normal Nonreactive [facility] Comment on above: Order Comment: Speci men Type: BLOOD SPECIMEN Ordering Facility: [facility] Address: [address] [place] [address] Performed By: #### 5 195-3, 37865-7, 16564-4 #### [facility] CLIA [id number] [address] [place] [address] [place] Reagin+T pallidum IgG+IgM Se rPl-Impon 07-04-2024 Reagin and Treponema pallidum IgG and IgM [Interp] Cannot exclude recent Treponemal infection if specimen collected within 7-10 days after appearance of suspect lesions or 2-3 weeks after an exposure. Clinical correlation is required. Normal [facility] Comment on above: Order Comment: Speci men Type: BLOOD SPECIMEN Ordering Facility: [facility] Address: [address] [place] [address] Performed By: #### 5 195-3, 11078-0, 60877-7 #### [facility] CLIA [id number] [address] [place] [address] [place] TYPE + SCREEN PRENATALon ABO O Normal [facility] Comment on above: Order Comment: Speci men Type: BLOOD SPECIMEN Ordering Facility: [facility] Address: [address] [place] [address] Performed By: #### T SPN #### [facility] CLIA [id number] [address] [place] [address] [place] Rh Nom (Bld) Negative Normal [facility] Comment on above: Order Comment: Speci men Type: BLOOD SPECIMEN Ordering Facility: [facility] Address: [address] [place] [address] Performed By: #### T SPN #### [facility] CLIA [id number] [address] [place] [address] [place] TYPE AND SCREEN EXPIRATION 07/07/2024 23:59 Normal [facility] Comment on above: Order Comment: Speci men Type: BLOOD SPECIMEN Ordering Facility: [facility] Address: [address] [place] [address] Performed By: #### T SPN #### [facility] CLIA [id number] [address] [place] [address] [place] C. trachomatis+N. gonorrhoea e DNA VEL+probe Ql (Unsp spec)on 06-05-2024 C. trachomatis rRNA VEL+probe Ql (Unsp spec) Not detected Normal Not detected [facility] Comment on above: Order Comment: Speci men Type: SWAB Ordering Facility: [facility] Address: [address] [place] [address] Performed By: #### 3 6902-5 #### [facility] CLIA [id number] [address] [place] [address] [place] N. gonorrhoeae rRNA VEL+probe Ql (Unsp spec) Not detected Normal Not detected [facility] Comment on above: Order Comment: Speci men Type: SWAB Ordering Facility: [facility] Address: [address] [place] [address] Performed By: #### 3 6902-5 #### [facility] CLIA [id number] [address] [place] [address] [place] POC CHILD PROTECTIVE INVESTIGATOR ULTRASOUNDon 06-05-20 24 Indication Viability; confirm cardiac activity Impression Single intrauterine gestational sac, CRL is appropriate for clinical dates, corresponding to DEYANIRA 01/04/25 cardiac activity is visualized Recommendations Follow up for NT scan if desired Method Transabdominal ultrasound examination. View: Adequate visualization Plata . Number of embryos: 1 Dating LMP on: 03/30/2024 GA by LMP 9 w + 4 d EDYANIRA by LMP: 01/04/2025 Ultrasound examination on: 06/05/2024 [...] Read By: Suhail Swift NP MATERNAL MEDICINE [facility] Radiology Study observation (narrative) [facility] Gastroenterology Visit Repor ton 03-30-2024 Gastroenterology Visit Report [facility] Gastroenterology [address] [place] [address] OFFICE VISIT Date of Service: 03/30/24 MR#: [id number] Acct: [id number] Name: ASHLEE MORENO Rep #: [id number] : 2005 Provider: Rohan Buckley DO Age/Sex: 19/F Location: [facility] Status: Signed Intake Intake Visit Reasons: Gastroesophageal [...] Chloe Signature: Date (if applicable) CC: Normal [facility] Vital Signs Date Time Vital Sign Value Performing Clinician Selam luz 12-13-2024 13:05-0400 Body mass index (BMI) [Ratio] 21.48 kg/m2 Genevieve Madden MD Work Phone: [facility] 12-13-2024 13:05-0400 Body weight 57.42 kg Genevieve Madden MD Work Phone: [facility] 12-13-2024 13:05-0400 Diastolic blood pressure 64 mm[Hg] Genevieve Madden MD Work Phone: [facility] 12-13-2024 13:05-0400 Systolic blood pressure 112 mm[Hg] Genevieve Madden MD Work Phone: [facility] 12-12-2024 14:46-0400 Body mass index (BMI) [Ratio] 21.48 kg/m2 Radha Ely MD Work Phone: [facility] 12-12-2024 14:46-0400 Body weight 57.42 kg Radha Ely MD Work Phone: [facility] 12-12-2024 14:46-0400 Diastolic blood pressure 60 mm[Hg] Radha Ely MD Work Phone: [facility] 12-12-2024 14:46-0400 Systolic blood pressure 102 mm[Hg] Radha Ely MD Work Phone: [facility] 11-27-2024 13:05-0400 Body mass index (BMI) [Ratio] 21.54 kg/m2 Yisel Puga APRN.CNM Work Phone: [facility] 11-27-2024 13:05-0400 Body weight 57.61 kg Yisel Puga APRN.CNM Work Phone: [facility] 11-27-2024 13:05-0400 Diastolic blood pressure 64 mm[Hg] Yisel Puga APRN.CNM Work Phone: [facility] 11-27-2024 13:05-0400 Systolic blood pressure 112 mm[Hg] Yisel Edd MELGOZAN.CNM Work Phone: [facility] 11-09-2024 10:42-0400 Body mass index (BMI) [Ratio] 21.2 kg/m2 Suhail Swift APRN.SHREDDER TENDER [employer]AT Work Phone: [facility] 11-09-2024 10:42-0400 Body weight 56.[address] COLLECTIONS OFFICER.SHREDDER TENDER [employer]AT Work Phone: [facility] 11-09-2024 10:42-0400 Diastolic blood pressure 64 mm[Hg] Suhail Haury COURT COLLECTIONS OFFICER.SHREDDER TENDER PEAT Work Phone: [facility] 11-09-2024 10:42-0400 Systolic blood pressure 106 mm[Hg] Suhail Haury COURT COLLECTIONS OFFICER.SHREDDER TENDER PEAT Work Phone: [facility] 10-12-2024 10:39-0400 Body mass index (BMI) [Ratio] 20.32 kg/m2 Suhail Haury COURT COLLECTIONS OFFICER.SHREDDER TENDER [employer]AT Work Phone: [facility] 10-12-2024 10:39-0400 Body weight 54.[address] COLLECTIONS OFFICER.SHREDDER TENDER PEAT Work Phone: [facility] 10-12-2024 10:39-0400 Diastolic blood pressure 80 mm[Hg] Suhail Haury COURT COLLECTIONS OFFICER.SHREDDER TENDER PEAT Work Phone: [facility] 10-12-2024 10:39-0400 Systolic blood pressure 120 mm[Hg] Suhail Haury COURT COLLECTIONS OFFICER.SHREDDER TENDER PEAT Work Phone: [facility] 09-22-2024 13:21-0400 Body mass index (BMI) [Ratio] 20.32 kg/m2 Genevieve Madden MD Work Phone: [facility] 09-22-2024 13:21-0400 Body weight 54.34 kg Genevieve Madden MD Work Phone: [facility] 09-22-2024 13:21-0400 Diastolic blood pressure 60 mm[Hg] Genevieve Madden MD Work Phone: [facility] 09-22-2024 13:21-0400 Systolic blood pressure 100 mm[Hg] Genevieve Madden MD Work Phone: [facility] 08-24-2024 08:57-0400 Body mass index (BMI) [Ratio] 19.78 kg/m2 Tim Neal MD Work Phone: [facility] 08-24-2024 08:57-0400 Body weight 52.89 kg Tim Neal MD Work Phone: [facility] 08-24-2024 08:57-0400 Diastolic blood pressure 60 mm[Hg] Tim Neal MD Work Phone: [facility] 08-24-2024 08:57-0400 Systolic blood pressure 100 mm[Hg] Tim Neal MD Work Phone: [facility] 07-04-2024 10:06-0500 Body mass index (BMI) [Ratio] 19.17 kg/m2 Radha Ely MD Work Phone: [facility] 07-04-2024 10:06-0500 Body weight 51.26 kg Radha Ely MD Work Phone: [facility] 07-04-2024 10:06-0500 Diastolic blood pressure 60 mm[Hg] Radha Ely MD Work Phone: [facility] 07-04-2024 10:06-0500 Systolic blood pressure 112 mm[Hg] Radha Ely MD Work Phone: [facility] 06-05-2024 11:08-0500 Body height 163.[address] COLLECTIONS OFFICER.SHREDDER TENDER PEAT Work Phone: [facility] 06-05-2024 11:08-0500 Body mass index (BMI) [Ratio] 19.17 kg/m2 Suhail Haury COURT COLLECTIONS OFFICER.SHREDDER TENDER PEAT Work Phone: [facility] 06-05-2024 11:08-0500 Body weight 51.[address] COLLECTIONS OFFICER.SHREDDER TENDER PEAT Work Phone: [facility] 06-05-2024 11:08-0500 Diastolic blood pressure 62 mm[Hg] Suhail Haury COURT COLLECTIONS OFFICER.SHREDDER TENDER PEAT Work Phone: [facility] 06-05-2024 11:08-0500 Systolic blood pressure 110 mm[Hg] Suhail Haury COURT COLLECTIONS OFFICER.SHREDDER TENDER PEAT Work Phone: [facility] Encounters Encounter Date Encounter Type Care [...] supervision of normal first in third trimester ([facility]) Encounter for ultras ound to check growth ([facility]) (Primary Dx); 36 weeks gestation of ([facility]); affected by growth restriction ([facility]) Start: 11-27-2024 End: 11-27-2025 RhD negative Yisel Puga APRN.CNKelli Work Phone: [facility] Work Phone: Start: 11-27-2024 End: 11-27-2024 Patient encounter procedure Yisel Puga APRN.CNKelli Work Phone: OB/Gynecology Comment on above: Encounter for superv ision of normal first in third trimester ([facility]) (Primary Dx); 34 weeks gestation of ([facility]); Uterine size-date discrepancy, third trimester ([facility]); Constipation during in first trimester ([facility]); Heartburn during in first trimester ([facility]); Rh negative state in antepartum period ([facility]); Dysuria Start: 11-27-2024 End: 11-27-2024 ambulatory SUHAIL SWIFT Facility:[facility] Start: 11-09-2024 End: 11-09-2024 ambulatory TIM NEAL Facility:[facility] Start: 11-09-2024 End: 11-09-2024 Patient encounter procedure Suhail Swift APRN.SHREDDER TENDER [employer]AT Work Phone: OB/Gynecology Comment on above: Encounter for superv ision of normal first in third trimester (HCC) (Primary Dx); 32 weeks gestation of ([facility]); Uterine size-date discrepancy, third trimester (HCC); Rh negative state in antepartum period ([facility]) Encounter for ultras ound to check growth (HCC) (Primary Dx); Uterine size-date discrepancy, third trimester (HCC); 32 weeks gestation of (HCC) Start: 10-26-2024 End: 10-26[facility]2024 [facility] Start: 10-13-2024 End: 12-13-2024 Follow-up encounter Amy Hernandez MD Work Phone: OB/Gynecology Start: 10-12-2024 End: 10-12-2024 Patient encounter procedure Suhail Swift APRN.SHREDDER TENDER [employer]AT Work Phone: OB/Gynecology Comment on above: Encounter for superv ision of normal first in third trimester (HCC) (Primary Dx); 28 weeks gestation of ([facility]); Rh negative state in antepartum period ([facility]); History of depression Start: 10-12-2024 End: 10-12-2024 [facility] Start: 09-22-2024 End: 09-22-2024 Patient encounter procedure Genevieve Madden MD Work Phone: OB/Gynecology Comment on above: Screening for diabet es mellitus (Primary Dx); 25 weeks gestation of ([facility]); Encounter for supervision of normal first in first trimester ([facility]) Start: 09-22-2024 End: 09-22-2024 [facility] SUHAIL SWIFT [facility] Start: 08-24-2024 End: 10-24-2024 Follow-up encounter Suhail Swift APRN.SHREDDER TENDER [employer]AT Work Phone: OB/Gynecology Start: 08-24-2024 End: 08-24-2024 [facility] Start: 08-24-2024 End: 08-24-2024 Patient encounter procedure Tim Neal MD Work Phone: OB/Gynecology Comment on above: Encounter for superv ision of normal first in first trimester (Primary Dx); 21 weeks gestation of Encounter for anatomic survey (Primary Dx); 21 weeks gestation of Start: 07-04-2024 End: 07-04-2024 ambulatory SUHAIL BRENNA [facility] Start: 07-04-2024 End: 07-04-2024 Patient encounter procedure Radha Ely MD Work Phone: OB/Gynecology Comment on above: Encounter for superv ision of normal first in first trimester (Primary Dx); 13 weeks gestation of Start: 06-05-2024 End: 06-05-2024 ambulatory SUHAIL SWIFT Facility:[facility] Start: 06-05-2024 End: 06-05-2024 Patient encounter procedure Suhail Swift APRN.SHREDDER TENDER PEAT Work Phone: OB/Gynecology Comment on above: Encounter for superv ision of normal first in first trimester (Primary Dx); 9 weeks gestation of ; with uncertain dates in first trimester; Screening for cervical cancer; Nausea and vomiting during ; Vulvodynia; Heartburn during in first trimester; Constipation during in first trimester; History of depression Start: 05-11-2024 [facility] Facility :[facility] Start: 05-08-2024 Encounter for other preprocedural examination [facility] Start: 03-30-2024 End: 03-30-2024 ambulatory [facility] Facility:[facility] Procedures Date Procedure Procedure Detail Performing Clinician Start: 12-12-2024 Urnls dip stick/tabl et rgnt non-auto w/o micrscp Radha Ely MD Work Phone: Start: 12-12-2024 Us nuchal translucency 1st gestation Suhail Swift APRN.SHREDDER TENDER PEAT Work Phone: Start: 11-27-2024 Urnls dip stick/tabl [...] Speci men Type: BLOOD SPECIMEN Ordering Facility: [facility] Address: [address] [place] [address] Performed By: #### 5 7021-8 #### [facility] CLIA [id number] [address] [place], [place] [id number] [place] [address] OF [place] Start: 08-24-2024 Us preg uterus after 1st trimest 1 gestation Suhail Swift APRN.SHREDDER TENDER [employer]AT Work Phone: Start: 07-04-2024 Antibody screen SUHAILMARIUSZ NEVES Comment on above: Order Comment: Speci men Type: BLOOD SPECIMEN Ordering Facility: [facility] Address: [address] [place] [address] Performed By: #### T SPN #### [facility] CLIA [id number] [address] [place] [address] [facility] Start: 06-05-2024 Us uterus l imited fetuses Suhail Swift APRN.SHREDDER TENDER PEAT Work Phone: Plan of Treatment Date Care Activity Detail Author Start: 06-05-2025 GC (Gonorrhea) Screening () GC (Gonorrhea) Screening () [facility] Start: 06-05-2025 Screening for Chlamy [place] trachomatis Chlamydia Screening () [facility] Start: 02-05-2025 Influenza vaccination [facility] Start: 01-02-2025 End: 01-02-2025 Patient encounter procedure 01/02/2025 1:40 PM EDT Routine Office Visit OB/Gynecology [address] [place] [phone] Genevieve Madden MD [address] [place] [phone] OB OB/Gynecology Comment on above: OB Start: 12-28-2024 End: 12-28-2024 Patient encounter procedure 12/28/2024 1:40 PM EDT Routine Office Visit OB/Gynecology [address] [place], [place] [phone] Genevieve Madden MD [address] [place] [address] OB OB/Gynecology Comment on above: OB Start: 12-20-2024 End: 12-20-2024 Patient encounter procedure 12/20/2024 8:00 AM EDT Routine Office Visit OB/Gynecology [address] [place], [place] [phone] Shashi Bae MD [address] [place] [address] OB OB/Gynecology Comment on above: OB Start: 12-12-2024 End: 12-12-2024 Patient encounter procedure [facility] Comment on above: Growth Growth/OB Start: 11-27-2024 End: 11-27-2025 OBSTETRIC ULTRASOUND WHI OBSTETRIC ULTRASOUND WHI Anc Imaging Routine Encounter for supervision of normal first in third trimester (HCC) 34 weeks gestation of (HCC) Uterine size-date discrepancy, third trimester ([facility]) Constipation during in first trimester ([facility]) Heartburn during in first trimester ([facility]) Rh negative state in antepartum period ([facility] [facility]) Dysuria Expected: 11/27/2024, Expires: 11/27/2025 [facility] Work Phone: Comment on above: Expected: 11/27/2024 , Expires: 11/27/2025 Start: 11-27-2024 End: 11-27-2024 Patient encounter procedure 11/27/2024 1:00 PM EDT Routine Office Visit OB/Gynecology [address] [place], [place] [id number] Yisel Puga APRN.CN [address] [place], [place] [id number] OB OB/Gynecology Comment on above: OB Start: 10-26-2024 End: 10-26-2024 Patient encounter procedure 10/26/2024 8:30 AM EDT Routine Office Visit OB/Gynecology [address] [place] [address] Tim Neal [facility] [address] [facility] [place] [address] 2 week follow up OB/Gynecology Comment on above: 2 week follow up Start: 10-13-2024 End: 01-12-2025 ANEMIA REFLEX PANEL ANEMIA REFLEX PANEL Lab Routine 25 weeks gestation of ([facility]) Encounter for supervision of normal first in first trimester ([facility]) Expected: 10/13/2024 (Approximate), Expires: 01/12/2025 [facility] Comment on above: Expected: 10/13/2024 (Approximate), Expires: 01/12/2025 Start: 10-13-2024 End: 09-22-2025 GESTATIONAL GLUCOSE SCREEN, 1-HOUR, 50 GRAM, NON-FASTING GESTATIONAL GLUCOSE SCREEN, 1-HOUR, 50 GRAM, NON-FASTING Lab Routine Screening for diabetes mellitus 25 weeks gestation of ([facility]) Encounter for supervision of normal first in first trimester ([facility]) Expected: 10/13/2024 (Approximate), Expires: 09/22/2025 [facility] Work Phone: Comment on above: Expected: 10/13/2024 (Approximate), Expires: 09/22/2025 Start: 10-13-2024 End: 09-22-2025 SYPHILIS TREPONEMAL W/REFLEX SYPHILIS TREPONEMAL W/REFLEX Lab Routine 25 weeks gestation of ([facility]) Encounter for supervision of normal first in first trimester ([facility]) Expected: 10/13/2024 (Approximate), Expires: 09/22/2025 [facility] Comment on above: Expected: 10/13/2024 (Approximate), Expires: 09/22/2025 Start: 10-13-2024 End: 01-12-2025 TYPE + SCREEN TYPE + SCREEN Blood Bank Routine 25 weeks gestation of ([facility]) Encounter for supervision of normal first in first trimester ([facility]) Expected: 10/13/2024 (Approximate), Expires: 01/12/2025 [facility] Comment on above: Expected: 10/13/2024 (Approximate), Expires: 01/12/2025 Start: 10-12-2024 End: 10-12-2024 Patient encounter procedure 10/12/2024 10:40 AM EDT Routine Office Visit OB/Gynecology [address] [place] [address] Tim Neal MD [address] [place] [address] OB OB/Gynecology Comment on above: OB Start: 10-12-2024 End: 10-12-2024 ambulatory 10/12/2024 10:30 AM EDT Results Only Patricia Dalywn [facility] Laboratory [address] [place] [address] Glucose test [facility] Comment on above: Glucose test Start: 09-22-2024 End: 09-22-2024 Patient encounter procedure 09/22/2024 1:30 PM EDT Routine Office Visit OB/Gynecology [address] [place] [address] Tim Neal MD [address] [place] [address] NO[facility] OB/Gynecology Comment on above: NOAH Start: 08-17-2024 End: 08-17-2024 Patient encounter procedure 08/17/2024 1:30 PM EDT Routine Office Visit OB/Gynecology [address] [place] [address] Radha Ely MD [address] [place] [address] OB OB/Gynecology Comment on above: OB Start: 07-04-2024 End: 07-04-2024 Patient encounter procedure 07/04/2024 10:00 AM EST Routine Office Visit OB/Gynecology [address] [place] [address] Radha Ely MD [address] [place] [address] ob lmp 03/30 OB/Gynecology Comment on above: ob lmp 03/30 Start: 06-26-2024 End: 06-26-2024 Patient encounter procedure [facility] Comment on above: Nuchal OB Routine Start: 06-05-2024 End: 09-04-2024 ANEMIA REFLEX PANEL ANEMIA REFLEX PANEL Lab Routine with uncertain dates in first trimester Expected: 06/05/2024, Expires: 09/04/2024 [facility] Work Phone: Comment on above: Expected: 06/05/2024 , Expires: 09/04/2024 Start: 06-05-2024 End: 09-04-2024 Hemoglobin A1c in Blood HEMOGLOBIN A1C Lab Routine with uncertain dates in first trimester Expected: 06/05/2024, Expires: 09/04/2024 [facility] Comment on above: Expected: 06/05/2024 , Expires: 09/04/2024 Start: 06-05-2024 End: 09-04-2024 Hepatitis B virus surface Ag [Presence] in Serum HEPATITIS B SURFACE ANTIGEN Lab Routine with uncertain dates in first trimester Expected: 06/05/2024, Expires: 09/04/2024 [facility] Comment on above: Expected: 06/05/2024 , Expires: 09/04/2024 Start: 06-05-2024 End: 09-04-2024 Hepatitis C virus Ab [Presence] in Serum HEPATITIS C ANTIBODY IA WITH CONFIRMATION Lab Routine with uncertain dates in first trimester Expected: 06/05/2024, Expires: 09/04/2024 [facility] Comment on above: Expected: 06/05/2024 , Expires: 09/04/2024 Start: 06-05-2024 End: 09-04-2024 HIV 1+2 Ab [Presence] in Serum or Plasma by Immunoassay HIV 1/2 COMBO WITH REFLEX TO DIFFERENTIATION Lab Routine with uncertain dates in first trimester Expected: 06/05/2024, Expires: 09/04/2024 [facility] Comment on above: Expected: 06/05/2024 , Expires: 09/04/2024 Start: 06-05-2024 End: 06-05-2025 NUCHAL TRANSLUCENCY WHI NUCHAL TRANSLUCENCY WHI Anc Imaging Routine with uncertain dates in first trimester Expected: 06/05/2024, Expires: 06/05/2025 [facility] Comment on above: Expected: 06/05/2024 , Expires: 06/05/2025 Start: 06-05-2024 End: 06-05-2025 OBSTETRIC ULTRASOUND WHI OBSTETRIC ULTRASOUND WHI Anc Imaging Routine with uncertain dates in first trimester Expected: 06/05/2024, Expires: 06/05/2025 [facility] Comment on above: Expected: 06/05/2024 , Expires: 06/05/2025 Start: 06-05-2024 End: 09-04-2024 RUBELLA IGG ANTIBODY RUBELLA IGG ANTIBODY Lab Routine with uncertain dates in first trimester Expected: 06/05/2024, Expires: 09/04/2024 [facility] Comment on above: Expected: 06/05/2024 , Expires: 09/04/2024 Start: 06-05-2024 End: 09-04-2024 SYPHILIS TREPONEMAL W/REFLEX SYPHILIS TREPONEMAL W/REFLEX Lab Routine with uncertain dates in first trimester Expected: 06/05/2024, Expires: 09/04/2024 [facility] Comment on above: Expected: 06/05/2024 , Expires: 09/04/2024 Start: 06-05-2024 End: 09-04-2024 TYPE + SCREEN TYPE + SCREEN Blood Bank Routine with uncertain dates in first trimester Expected: 06/05/2024, Expires: 09/04/2024 [facility] Comment on above: Expected: 06/05/2024 , Expires: 09/04/2024 Start: 02-06-2024 Covid-19 Vaccine ( season) Covid-19 Vaccine ( season) [facility] Start: 02-06-2024 Influenza vaccination Influenza Vacc ine (#1) [facility] Start: 01-04-2024 Screening for malign ant neoplasm of cervix Cervical Cancer Screening [facility] Start: 2022 Hepatitis B Vaccine (1 of 3 - 19+ 3-dose series) Hepatitis B Vaccine (1 of 3 - 19+ 3-dose series) [facility] Start: 2022 Urine microalbumin profile DTaP,Tdap,Td Vaccine (1 - Tdap) [facility] Start: 2021 Anxiety Screening Anxiety Screening [facility] Start: 2021 Depression Screening Depression Scre ening [facility] Start: 2021 GC (Gonorrhea) Screening (18-24) GC (Gonorrhea) Screening (18-24) [facility] Start: 2021 Hepatitis C screening Hepatitis C Sc reening [facility] Start: 2021 HIV screening HIV Screening [facility] Start: 2021 Screening for Chlamy peyton trachomatis Chlamydia Screening () [facility] Start: 2019 Meningococcal B Vacc ine (1 of 2 - Standard) Meningococcal B Vaccine (1 of 2 - Standard) [facility] Start: 2019 Meningococcal B Vaccine: Consider Based On Risk (1 of 2 - Patient Seeks Protection) Meningococcal B Vaccine: Consider Based On Risk (1 of 2 - Patient Seeks Protection) [facility] Start: 2018 HPV Vaccine (1 - 3-d ose series) HPV Vaccine (1 - 3-dose series) [facility] Start: 2017 Peds To Adult Transition Annual Assessment Peds To Adult Transition Annual Assessment [facility] Start: 2015 Peds To Adult Transition Initial Discussion Peds To Adult Transition Initial Discussion [facility] Bacteria identified in Urine by Culture BACTERIAL CULTURE, URINE Microbiology Routine Encounter for supervision of normal first in third trimester (HCC) 34 weeks gestation of (HCC) Dysuria 11/27/2024 2:12 PM EDT [facility] Chlamydia trachomatis+Neisseria gonorrhoeae DNA [Presence] in Unspecified specimen by VEL with probe detection GONORRHEA/CHLAMYDIA NAAT Lab Routine with uncertain dates in first trimester 06/05/2024 11:37 AM EST [facility] Immunizations Immunization Date Immunization Notes Care Provider [facility] 10-12-2024 RHO(D) immune globul in- IV or IM Suhail Swift APRN.SHREDDER TENDER PEAT Work Phone: [facility] Payers Date Payer Category Payer Self-pay 2024 Private Health Insurance [employer] [id number] 2024 Unknown [employer] PPO [id number] 2024-Present [phone] [address] [place] [address] PPO [id number] 2024 Unknown [id number] Unknown [id number] Unknown [id number] Social History Date Type Detail Facility [facility]: [facility]05[facility] Start: 06-05-2024 Tobacco use and exposure Smoke less tobacco non-user [facility] Start: 06-05-2024 End: 12-13-2024 [facility]coholic [facility] Start: 06-05-2024 End: 10-12-2024 History of Social function [facility] Start: 06-05-2024 End: 10-12-2024 Tobacco use panel [facility] National Score (1-10 0), lower number is lower risk 62 [facility] Start: 04-13-2024 [facility] Start: 2003 Sex assigned at Not on file C [facility] Clinical Notes 06-05-2024 to 12-13-2024 Quick Notes [...] 599.0, 041.02, ICD10: R82.71 Genevieve Madden MD [facility] 12-13-2024 Miscellaneous Notes S: Ashlee Moreno [...] Genevieve Madden MD documented in this encounter [facility] 12-13-2024 Instructions Melissa Espinal LPN - 12/13/2024 1:03 PM EDT SEQUENTIAL SCREENINGS The [facility] offers sequential screenings for women who [...] It will require an appointment with our certified endoscopy technician. This is not an ultrasound performed [...] the above symptoms, contact our office at [phone] and ask to speak with a nurse. After hours, you can call doctors registry at [phone] OR call [facility] at [phone] and ask to have the doctor data solutions architect paged. If you consider this an emergency, dial 9-1-2 or go to your nearest emergency department. NEED HELP? Are you dealing with a violent or abusive relationship? Are you a victim of rape or sexual assult? Call [facility] ([place]) 24 hour Crisis Hotline: 249.649.2175 or 065-695-1513. MANUAL Your Guide to a Healthy manual is now on-line. Visit [email or web address] ncyGuide to download your free copy documented in this encounter [facility] 12-12-2024 Note Indication Evaluation of growth. [...] 11 oz EFW by: Hadlock (HC-AC-FL) Extended Ortho Nurse 3.0 mm Extremities / Bony Struc FL [...] PTL & FM precautions Radha Ely MD [facility] 12-12-2024 Miscellaneous Notes KJ - S: Ashlee denies LOF, contractions or vaginal bleeding. O: 36w5d, see flow sheet SENSITIVE EXAM: Sensitive exam not performed. A/P: Assessment & Plan 36 weeks gestation of ([facility]) Orders: URINE OB DIP B/O GBS bacteriuria Orders: URINE OB DIP B/O Encounter for supervision of normal first in third trimester ([facility]) Orders: URINE OB DIP B/O Growth US today - await report. Reviewed PTL & FM precautions Radha Ely MD documented in this encounter [facility] 12-12-2024 Instructions Brigid Fuentes MA - 12/12/2024 2:37 PM EDT SEQUENTIAL SCREENINGS The [facility] offers sequential screenings for women who [...] It will require an appointment with our certified endoscopy technician. This is not an ultrasound performed [...] the above symptoms, contact our office at [phone] and ask to speak with a nurse. After hours, you can call doctors registry at [phone] OR call [facility] at [phone] and ask to have the doctor data solutions architect paged. If you consider this an emergency, dial 5--4 or go to your nearest emergency department. NEED HELP? Are you dealing with a violent or abusive relationship? Are you a victim of rape or sexual assult? Call [facility] ([place]) 24 hour Crisis Hotline: 190.408.5917 or 254-994-8176. MANUAL Your Guide to a Healthy manual is now on-line. Visit [email or web address] ncyGuide to download your free copy documented in this encounter [facility] 11-27-2024 Progress note Formatting of t [...] RTO in 2 weeks Yisel Puga APRN.CNM [facility] 11-27-2024 Miscellaneous Notes NANCYFabianaS: Ashlee Moreno [...] Yisel Puga APRN.CNM documented in this encounter [facility] 11-27-2024 Instructions Yisel Puga APRN.CNM - [...] Prevention: www.cdc.gov/groupbstrep/ March of Dimes http://www.marchofdimes.org/pregn deidre/g vtgy-e-wjxse-infection.aspx What is my perineum? Your perineum is [...] or burning! Figure 1 1 Perineal Massage Flesch?[place] Grade Level: 7.2 Approved June 2015. This [...] an easy pie crust in the food safety auditor. Add soaked dates to homemade nut butter for a sweet treat. Add dates to michelle homemade salad dressing. Add dates during easily with these yummy (paleo friendly) bars made from dates. What Is Red Raspberry [place] Tea? Red raspberry leaf tea comes from [...] , and too. How Much Red Raspberry [place] Tea to Drink? With your doctor or rn midwife s approval, start with 1 cup of [...] because of uterine cramping. Is Red Raspberry [place] Tea the Same as Raspberry [place] Tea? How About Plain Old Raspberry Tea? Sometimes. You really need to look at the ingredients to be sure. Note that there is no difference between red raspberry leaf and raspberry leaf. Truly Accomplished or [employer] Raspberry [place] Tea are two good brands. The red [...] outlined in this article. The [employer] www.[employer].Qloo I named this 'circuit' after my friend [...] sideways, 2 at a time, (have a cisco unified communications engineer downstairs of you!), take a walk outside [...] the pelvis. Michelle Woo: Circuit Creator - www.christian hospitalundbirthcollective.com [place] CD, BDT (SHALA), LCCE, FACCE: Supporting Content - www.carly.Qloo Suhailmariusz Calloway Brad: Photography - www.[email or web address] Jolynn Edvin CD/CDT (MYRNA): Print and Tassel Clipper - www.Vidaao.LangoLab Circuit Masterminds The [facility] EHR Circuit www.ProprietárioDireto SIGNS AND SYMPTOMS OF LABOR 1. Contractions every 10 minutes or more often 2. Clear, pink, or brownish fluid (water) leaking from vagina 3. Feeling that baby is pushing down, pressure 4. Low, dull backache 5. Cramps that feel like a period 6. Cramps with or without diarrhea If you notice any of the above symptoms, contact our office at [phone] and ask to speak with a nurse. After hours, you can call doctors registry at [phone] OR call [facility] at [phone] and ask to have the doctor data solutions architect paged. If you consider this an emergency, dial 91-3 or go to your nearest emergency department. NEED HELP? Are you dealing with a violent or abusive relationship? Are you a victim of rape or sexual assult? Call [facility] ([place]) 24 hour Crisis Hotline: 905.649.5382 or 939-362-1354. MANUAL Your Guide to a Healthy manual is now on-line. Visit [email or web address] ncyGuide to download your free copy documented in this encounter [facility] 11-09-2024 Note Indication Evaluation of growth [...] 11 oz EFW by: Hadlock (HC-AC-FL) Extended Ortho Nurse 4.9 mm Extremities / Bony Struc FL [...] supervision of normal first in third trimester ([facility]) - ICD9: V22.0, ICD10: Z34.03 (primary diagnosis) - Continue PNV - Mood stable 2. 32 weeks gestation of ([facility]) - ICD9: V22.2, ICD10: Z3A.32 3. Uterine size-date discrepancy, third trimester ([facility]) - ICD9: 649.63, ICD10: O26.843 - Growth today 4. Rh negative state in antepartum period ([facility]) - ICD9: 646.83, ICD10: O26.899, Z67.91 - Rhogam received 10/12/24 PTL precautions and kick counts reviewed. RTO in 2 weeks or sooner as needed. Suhail Swift APRN.SHREDDER TENDER PEAT [facility] 11-09-2024 Miscellaneous Notes EH - S: [...] supervision of normal first in third trimester ([facility]) - ICD9: V22.0, ICD10: Z34.03 (primary diagnosis) - Continue PNV - Mood stable 2. 32 weeks gestation of ([facility]) - ICD9: V22.2, ICD10: Z3A.32 3. Uterine size-date discrepancy, third trimester ([facility]) - ICD9: 649.63, ICD10: O26.843 - Growth today 4. Rh negative state in antepartum period ([facility]) - ICD9: 646.83, ICD10: O26.899, Z67.91 - Rhogam received 10/12/24 PTL precautions and kick counts reviewed. RTO in 2 weeks or sooner as needed. Suhail Swift APRN.SHREDDER TENDER PEAT documented in this encounter [facility] 10-12-2024 Note HNO ID: [id number] Author: MARINA NESS RN Service: ? Author [...] her Rhophylac pocket card. Marina Ness RN [facility] 10-12-2024 History of Present illness Narrative Ashlee [...] supervision of normal first in third trimester ([facility]) - ICD9: V22.0, ICD10: Z34.03 (primary diagnosis) - Continue PNV 2. 28 weeks gestation of ([facility]) - ICD9: V22.2, ICD10: Z3A.28 - 1 hour GCT, CBC, and RPR today - Rh negative: Rhogam injection today - Considering TDAP - rediscuss next visit - LARC form reviewed and signed. Declines. - Depression screen negative - Opioid screen negative - plan form discussed and given to Ashlee - Reviewed how to pre register through [facility] 3. Rh negative state in antepartum period ([facility]) - ICD9: 646.83, ICD10: O26.899, Z67.91 - RHO(D) IMMUNE GLOBULIN 1,500 UNIT (300 MCG)/2 ML INJECTION SYRINGE 4. History of depression - ICD9: V11.8, ICD10: Z86.59 - Screening negative - Reports coping well at 50 mg of Zoloft PTL precautions and kick counts reviewed. RTO in 2 weeks or sooner as needed. Suhail Swift APRN.SHREDDER TENDER PEAT documented in this encounter [facility] 10-12-2024 Note HNO ID: [id number] Author: SUHAIL SWIFT APRN.SHREDDER TENDER PEAT Service: ? Author Type: Nurse Practitioner Type: [...] supervision of normal first in third trimester ([facility]) - ICD9: V22.0, ICD10: Z34.03 (primary diagnosis) - Continue PNV 2. 28 weeks gestation of ([facility]) - ICD9: V22.2, ICD10: Z3A.28 - 1 hour GCT, CBC, and RPR today - Rh negative: Rhogam injection today - Considering TDAP - rediscuss next visit - LARC form reviewed and signed. Declines. - Depression screen negative - Opioid screen negative - plan form discussed and given to Ashlee - Reviewed how to pre register through [facility] 3. Rh negative state in antepartum period ([facility]) - ICD9: 646.83, ICD10: O26.899, Z67.91 - RHO(D) IMMUNE GLOBULIN 1,500 UNIT (300 MCG)/2 ML INJECTION SYRINGE 4. History of depression - ICD9: V11.8, ICD10: Z86.59 - Screening negative - Reports coping well at 50 mg of Zoloft PTL precautions and kick counts reviewed. RTO in 2 weeks or sooner as needed. Suhail Swift APRN.SHREDDER TENDER PEAT [facility] 10-12-2024 Instructions Brigid Fuentes MA - 10/12/2024 10:38 AM EDT SEQUENTIAL SCREENINGS The [facility] offers sequential screenings for women who [...] It will require an appointment with our certified endoscopy technician. This is not an ultrasound performed [...] the above symptoms, contact our office at [phone] and ask to speak with a nurse. After hours, you can call doctors registry at [phone] OR call [facility] at [phone] and ask to have the doctor data solutions architect paged. If you consider this an emergency, dial 9-1-8 or go to your nearest emergency department. NEED HELP? Are you dealing with a violent or abusive relationship? Are you a victim of rape or sexual assult? Call [facility] ([place]) 24 hour Crisis Hotline: 233.437.5525 or 251-784-3790. MANUAL Your Guide to a Healthy manual is now on-line. Visit [email or web address] ncyGuide to download your free copy documented in this encounter [facility] 09-22-2024 Progress note Formatting of t [...] supervision of normal first in first trimester ([facility]) - ICD9: V22.0, ICD10: Z34.01 - GESTATIONAL GLUCOSE SCREEN, 1-HOUR, 50 GRAM, NON-FASTING - SYPHILIS TREPONEMAL W/REFLEX - ANEMIA REFLEX PANEL - TYPE + SCREEN Genevieve Madden MD [facility] 09-22-2024 Miscellaneous Notes S: Ashlee Moreno [...] supervision of normal first in first trimester ([facility]) - ICD9: V22.0, ICD10: Z34.01 - GESTATIONAL GLUCOSE SCREEN, 1-HOUR, 50 GRAM, NON-FASTING - SYPHILIS TREPONEMAL W/REFLEX - ANEMIA REFLEX PANEL - TYPE + SCREEN Genevieve Madden MD documented in this encounter [facility] 09-22-2024 Instructions Brigid Fuentes MA - 09/22/2024 1:19 PM EDT SEQUENTIAL SCREENINGS The [facility] offers sequential screenings for women who [...] It will require an appointment with our certified endoscopy technician. This is not an ultrasound performed [...] the above symptoms, contact our office at [phone] and ask to speak with a nurse. After hours, you can call doctors registry at [phone] OR call [facility] at [phone] and ask to have the doctor data solutions architect paged. If you consider this an emergency, dial 9-1-4 or go to your nearest emergency department. NEED HELP? Are you dealing with a violent or abusive relationship? Are you a victim of rape or sexual assult? Call [facility] [place] ([place]) 24 hour Crisis Hotline: 452.512.7647 or 259-917-3617. MANUAL Your Guide to a Healthy manual is now on-line. Visit [email or web address] ncyGuide to download your free copy documented in this encounter [facility] 08-24-2024 Progress note Formatting of t his note might be different from the original. SW- pt doing well. No pain, vb, lof. +FM PE: Gen- NAD, well appearing Abd- Gravid A/p 21 wk gestation - Anatomy US today and final report pending - Reviewed NOB labs RTO 4 wks Tim Neal DO [facility] 08-24-2024 Miscellaneous Notes SW- pt doing well. No pain, vb, lof. +FM PE: Gen- NAD, well appearing Abd- Gravid A/p 21 wk gestation - Anatomy US today and final report pending - Reviewed NOB labs RTO 4 wks Tim Neal DO documented in this encounter [facility] 08-24-2024 Instructions Brigid Fuentes MA - 08/24/2024 8:36 AM EDT SEQUENTIAL SCREENINGS The [facility] offers sequential screenings for women who [...] It will require an appointment with our certified endoscopy technician. This is not an ultrasound performed [...] the above symptoms, contact our office at [phone] and ask to speak with a nurse. After hours, you can call [facility] at [phone] OR call [facility] at [phone] and ask to have the doctor data solutions architect paged. If you consider this an emergency, dial 9-1-5 or go to your nearest emergency department. NEED HELP? Are you dealing with a violent or abusive relationship? Are you a victim of rape or sexual assult? Call [facility] ([place]) 24 hour Crisis Hotline: 125.226.3454 or 010-332-9892. MANUAL Your Guide to a Healthy manual is now on-line. Visit [facility].org/HealthyPregna ncyGuide to download your free copy documented in this encounter [facility] 07-04-2024 Progress note Formatting of t [...] patient is considering it. Radha Ely MD [facility] 07-04-2024 Miscellaneous Notes KJ - VB [...] Radha Ely MD documented in this encounter [facility] 07-04-2024 Instructions Brooklynn Philippe MA - 07/04/2024 10:05 AM EST SEQUENTIAL SCREENINGS The [facility] offers sequential screenings for women who [...] It will require an appointment with our certified endoscopy technician. This is not an ultrasound performed [...] the above symptoms, contact our office at [phone] and ask to speak with a nurse. After hours, you can call doctors registry at [phone] OR call [facility] at [phone] and ask to have the doctor data solutions architect paged. If you consider this an emergency, dial 7-6- or go to your nearest emergency department. NEED HELP? Are you dealing with a violent or abusive relationship? Are you a victim of rape or sexual assult? Call [facility] ([place]) 24 hour Crisis Hotline: 648.678.5375 or 420-898-6039. MANUAL Your Guide to a Healthy manual is now on-line. Visit [facility].org/HealthyPregna joleneyGuicarmen to download your free copy documented in this encounter [facility] 06-05-2024 Instructions Suhail Swift APRN.SHREDDER TENDER PEAT - 06/05/2024 10:52 AM EST Images from the original note were not included. Please select the following link to access the [facility] Your Guide to a Healthy . www.Ccf.org/healthypregnancyguide MORNING SICKNESS IN by Claudia Alberto M.D. for 9Cookies As you may already know, morning sickness can often be more appropriately called evening sickness or odkma-hywgtc-ae-the-day sickness. While there are the constanza few, [...] medication, Doxylamine, is currently marketed as an ydxi-pnc-baogclc sleeping pill. Ask your practitioner if creating a vitamin B6/Doxylamine combination with uyxq-tew-vzqaquw medications would be safe for you. Prescription [...] as Phenergan, Compazine, Reglan Psychotherapy Services at [facility] Call Behavioral Health Access Line at [phone] to schedule Individual psychotherapy In-person or virtual Wait time for first evaluation may be 12 or more weeks. Wait list spots may be available. Due to the high volume of patients this option is recommended if you are looking for short term acute symptom coping strategies. 1-887-3-EOHK4TADR - [facility] Mental Health Hotline If you are in suicidal crisis, please call or text 7-497-089-TALK ( ) or visit the National Suicide Prevention Lifeline website. mchb.[facility] hospitala.gov If you are in crisis, call 581 or go to your nearest Emergency Department Here are some links for wonderful Providers here in the community and surrounding areas. Do not hesitate to contact their offices, many are offering virtual visits during this time. Psychotherapy Services outside of [facility] Support International Online Provider Directory https://zeeWAVES.Qloo/ - can assist in finding providers in your area that might be more extensive then the list below. [facility] [place], [place] [address], [place] [id number] [facility] [address] [place] [address] [place] [address] [place] [address] [facility] [address] [place] [address] Ernst Overton MD [address] [place] [address] [facility] [address] [facility], [address] [place] [address] [facility] [address] [place] [address] [facility] [place] [phone]/ [phone] Dayanna Mohansusanmichelle [address] [facility] [phone] A[facility] of Counseling and Mediation [place] / [place] [phone] [facility] [address] [place] [address]/ [facility] [phone] Armando Gutierrez, NOEL, CLC [facility] Family Therapy Workshops, telehealth and at home visits. [phone] [facility] 20 locations [place], [place], [place], [place], [employer], [place], [place], [facility], [place], [place], [place], [place], [place], [place], [facility], [place], [place] ,[facility], [place], [place],[facility], [facility], [place], [facility], [facility], [place] www.peacehealth united general medical centerer.co [phone] Psychotherapy resources outside of [facility] are listed below [facility] Web: https://www.Chrends/ Support International Online Provider Directory https://Galavantier/ [facility] https://insightcoGiftology.Qloo/ [facility] Wellness Web: https://INSOMENIA/ Center for Effective Living Web: https://www.Wotoliving.Qloo/ [facility]Stance Web: https://Lucidity (MemberRx)/location/s fabio/anne marie/ [facility] Web: https://www.[facility], [place].or / [facility] Web: https://Partschannel.Nusirt/ Recovery Resources Mental health and substance abuse help Web: https://www.Cybernet Software Systems & RESOURCES Support International Direct peer support and connection to professional resources Non-Emergency Helpline Phone: / Text: 221.477.1819 Web: https://www..net/ Online Provider Directory: https://Galavantier/ Online Support Meetings: https://www..net/get-he lp/jqf-pzyjls-xehirtv-meetings/ NICK Baby and Staffing Manager Services Web: https://Connectivity/ MotherToBaby Expert information on medication use during and Text: [phone] Web: https://Lang Ma/ NATIONAL REGISTRY FOR PSYCHIATRIC MEDICATIONS Currently studying the safety of antidepressants, ADHD medications and atypical antipsychotics taken during TO PARTICIPATE CALL TOLL-FREE: Web: https://womenentalhealth.org/re search/pregnancyregistry/ Support Groups: [facility]- Follow on facebook Baby Bistro support group led by [facility] department Resilient Mamas - Support Group [facility] Fargos.org The POEM support group [phone] Www.poemonline.org Follow on facebook - LEO gorman Online support meetings PSI https://www..net/get-he lp/lqo-irlxqj-rsvbzhz-meetings/ [facility] mommy and me virtual support group 11:30-1pm Support for mothers and new babies and toddlers [place] childbirth education: Childbirth @cc.org or call [phone] CRISIS: CRISIS HOTLINE [phone], 911 or go to the nearest ER. [facility] [phone] / [facility] [phone] https://www.[facility] medical centerrb.org Crisis text line text the word HOME to 400[address] Demetri[facility] [address] [facility] [address] www.MobiTXsanderEquiphon Anjana De Guzman clinical counseling [address] [facility] [address] [place] [address] www.Wishpot [phone] Holding space psychotherapy Cira Ray TECHNICAL RESEARCH SCIENTIST OVEREDGE SEWER-S [address] [facility] www.Presentigo [phone]/ [employer] [phone] They all offer virtual. All work with trauma Support groups Online support meetings PSI https://www..net/get-he lp/llm-yacckx-oxxfngv-meetings/ Here are the support groups they offer: Support of parents of 1 to 4 years old children POEM ( Outreach and Encouragement for Moms) offers free support for mothers experiencing depression, anxiety, and other mood and anxiety disorders. Masks are recommended but not required. No pre-registration required. Babies in arms welcome. meetings now take place on the and Wednesday of each month Location: [facility] [address] [place] [address] Room 122 (library room) 7-8:00 p.m. When [...] find out more about POEM, website at: https://mhaohio.org/get-help/[facility] centerxxnc-acxwvk-djnxhw/poem-services/ offer a confidential helpline: private Facebook group is called LEO Gorman Here are the groups they offer: Traumatic childbirth resources: Http://pattch.org/ https://www.ugoNerVve Technologies.Qloo/ Name Location (s) Phone # (s) Services Website [facility] [address] [facility], [place], [place] - [phone]; [address] [facility] [address] 201 [facility] [phone] In-Person GROUPS INDIVIDUAL THERAPY MATERNAL-INFANT MENTAL HEALTH MEDICATION MANAGEMENT PLAY AND ART THERAPY TELETHERAPY https://www.Chrends/s erviccharles/ Ingrid medina [facility]? [address] [place], [place] [address] ? [address] [place], [place] [address] ? [address] [place], [place] [address]? Grief Support Groups Individual Grief Counseling Spiritual Care [facility] https://snell.[facility].org/grief-services [facility] [address] [place], [place] [address]; ; Email: gema@Showell - The Simple, Fast and Elegant Tablet Sales App Women's Mental Health; Couples Counseling; Trauma (EMDR); Stress Management; Mood and Anxiety Related Disorders- and much more https://www.Ti-Bi Technology/ LifeStance Numerous as they have contract providers: access website to find specific providers near you Counseling including CBT and EMDR as well as many more modalities; Medication Management; Telehealth and In-Person https://ImaginAb.Qloo/ [facility] [address] [place], [place] [address]; [phone] Personal, Family and Group Therapy; Psychological Testing and Diagnosis; Medication Management; Life and Career Coaching; Psychoanalysis; Literacy Testing; Yoga and Meditation https://Sustaining Technologies.Qloo/ [facility] [address] [facility] [address], [place] [address] [address] ; [address] [facility], [address] [place] [address]; Office # for both sites: Individual and Couples Counseling https://www.Key Cybersecurity.Qloo/ paymentinsurance.html OCD & Anxiety [facility] [address] [facility], [address], [place] [address]; Specialize in Cognitive-Behavioral Therapy (CBT) for the treatment of anxiety disorders across the lifespan. TELEHEALTH ONLY. https://Prime Financial ServicesandanxietyZoomForth/faqs [facility] [address] [place], [address] [place] [address] [place], [address] [employer] [address] [place], [address] [place] [address] [place] [address], [address] [place] [address] [place], [address] [place] [address] [place], [address] Transportation Services To minimize patient barriers, [facility] provides transportation services to patients who qualify. [...] Substance abuse treatment Medication assisted treatment https://www.[facility].or g/mental-health/ [facility] OFFICE AT [facility] [address] [place] [address] [facility] OFF[facility] [address] [place] [address] [facility] OFFICE [address] [place], [place] [address] [facility] OFFICE (at [facility]) [address] [place] [address] [facility] SYRINGE EXCHANGE PROGRAM & HIV SCREENING [address] [place] [address] RANGER SYRINGE EXCHANGE PROGRAM [address] [place] [address] Behavioral Health Urgent Care: [facility] & [place]hele [address] Sites Counseling Indvidual and Group Medication Management Case Management benefits applications housing assistance Substance abuse treatment Medication assisted treatment Employment Services/ Job Training https://theNetronome SystemsmeAasonn.org/ Recovery Resources [address] [place], [place] [address]: P: [phone] [address] [facility], [address], [place], [place] [address] P: [phone] Our services include: Addiction Mental Health Treatment Assessment Psychiatry Medical Care Employment Housing Drug and Alcohol Prevention HIV/AIDS Prevention https://www.FRUCTs.org/ [facility] [employer] [address] [place] [address] [place] [address] [place], [place] [address] [place] [address] [place] [address] [place] [address] [facility] [address] [place] [address] [place] [address] [place] [address] TMS Therapy/ Counseling Psychocological Testing for ADHD Medication Management In-Person/ Telemedicine https://www.TransferWise/gino ents-depression Memory & Psychological services [address], [place] [address] Neuropsychological Testing For ADHD https://www.memoryandpsych.com/ [facility] Office [address] [place] [address] [address] Providing yisi-gy-dged and telehealth services. Adult Case Management Community Education and Prevention Employment Outpatient Treatment - Counseling & Psychotherapy Psychiatric Services http://www.ccwhc.org/ [facility] [place] [address] [place] [address] [facility] [address] [place] [address] Virtual Appointments! Now offering safe and convenient virtual client appointments to anyone in [place]! Individual Therapy Couples/Relationship Therapy Trauma/EMDR Therapy Art Therapy Play Therapy Animal Maintenance Supervisor Support: Parenting Skills, Parent Child Interaction Therapy, Parent Infant Interaction Therapy Meditation Dietitian/Retail Service Specialist Services Group Therapy Yoga https://www.ebbandflowcounseling. Qloo/ Sherri Ponce [phone] Private Practice: Telehealth Only Specializes in EMDR for Trauma None documented in this encounter [facility] 06-05-2024 Note HNO ID: [id number] Author: SUHAIL SWIFT APRN.CNP Service: ? Author Type: Nurse Practitioner Type: Progress Notes Filed: 06/05/2024 11:40 Note Text: Pear Picker offered: Patient declines. INITIAL OB ASSESSMENT HPI: [...] Status: Partner: Name: Dre Age: 24 Occupation: Pipe Racker Gender: Male PAST MEDICAL HISTORY Diagnosis Date [...] The sensitive examination (more content not included)... [facility] 06-05-2024 History of Present illness Narrative Pear Picker offered: Patient declines. 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 As applicable, any other physician, advance practice provider, medical student, or other health professional student that will be observing or involved in the sensitive examination for educational or training purposes was discussed with the Patient or Authorized Telegraph And Teletype Operator. The Patient or Authorized Telegraph And Teletype Operator has agreed to proceed with the sensitive [...] Your guide to a health and the Electrical Estimator. Discussed hemoglobin electrophoresis. Patient: Declines Reviewed midwifery and nozzleman services that are available. 2) Screening: Hemoglobin [...] (28-30 weeks): [] Consent [] Contraception [] Carpet Installation Specialist [] TeamBirth handout Third trimester (36-40 weeks): [...] provided. To update throughout . 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 Suhail Swift APRN.SHREDDER TENDER PEAT documented in this encounter [facility] Evaluation note Diagnosis Encounter for supervision [...] other mental disorder [facility] Diagnosis Encounter for supervision of normal first in first trimester- Primary Supervision of normal first 13 weeks gestation of state, incidental [facility] Diagnosis Encounter for supervision of normal first in first trimester- Primary Supervision of normal first 21 weeks gestation of state, incidental [facility] Diagnosis Encounter for anatomic survey- Primary 21 weeks gestation of state, incidental [facility] Diagnosis Screening for diabetes mellitus- Primary 25 weeks gestation of (HCC) state, incidental Encounter for supervision of normal first in first trimester (HCC) Supervision of normal first [facility] Encounter for supervision of normal first in third trimester ([facility])- Primary Supervision of normal first 28 weeks gestation of ([facility]) state, incidental Rh negative state in antepartum period ([facility]) Rhesus isoimmunization affecting management of mother, antepartum condition History of depression Personal history of other mental disorder documented in this encounter [facility] note* Diagnosis Encounter for supervision of normal first in third trimester ([facility])- Primary Supervision of normal first 32 weeks gestation of ([facility]) state, incidental Uterine size-date discrepancy, third trimester ([facility]) Rh negative state in antepartum period ([facility]) Rhesus isoimmunization affecting management of mother, antepartum condition documented in this encounter [facility] note* Diagnosis Encounter for ultrasound to check growth ([facility])- Primary Encounter for routine screening for malformation using ultrasonics Uterine size-date discrepancy, third trimester ([facility]) 32 weeks gestation of ([facility]) state, incidental documented in this encounter [facility] note* Diagnosis Encounter for supervision of normal first in third trimester ([facility])- Primary Supervision of normal first 34 weeks gestation of ([facility]) state, incidental Uterine size-date discrepancy, third trimester ([facility]) Constipation during in first trimester ([facility]) Heartburn during in first trimester ([facility]) Rh negative state in antepartum period ([facility]) Rhesus isoimmunization affecting management of mother, antepartum condition Dysuria documented in this encounter [facility] note* Diagnosis 36 weeks gestation of ([facility])- Primary state, incidental GBS bacteriuria Encounter for supervision of normal first in third trimester ([facility]) Supervision of normal first * Assessment & Plan Note - Radha Ely MD - 12/12/2024 3:18 PM EDTAssociated Problem(s): GBS bacteriuria Orders: URINE OB DIP B/O * Assessment & Plan Note - Radha Ely MD - 12/12/2024 3:18 PM EDTAssociated Problem(s): Encounter for supervision of normal first in third trimester ([facility]) Orders: URINE OB DIP B/O documented in this encounter [facility] note* Diagnosis Encounter for ultrasound to check growth ([facility])- Primary Encounter for routine screening for malformation using ultrasonics 36 weeks gestation of (HCC) state, incidental affected by growth restriction (HCC) 36 weeks gestation of (HCC)- Primary state, incidental GBS bacteriuria Encounter for supervision of normal first in third trimester ([facility]) Supervision of normal first documented in this encounter [facility] note* Diagnosis 36 weeks gestation of (HCC)- Primary state, incidental GBS bacteriuria Encounter for supervision of normal first in third trimester ([facility]) Supervision of normal first 36 weeks gestation of (HCC)- Primary state, incidental GBS bacteriuria Poor growth affecting management of mother in third trimester, single or unspecified fetus ([facility]) documented in this encounter [facility] for referral (narrative)* Diagnostic Procedure Only (Routine) - Authorized Specialty Diagnoses / Procedures Referred By Contac t Referred To Contact [facility] Diagnoses with uncertain dates in first trimester Procedures NUCHAL TRANSLUCENCY WHI US NUCHAL TRANSLUCENCY 1ST GESTATION Suhail Swift APRN.CNP [address] [place] [address] [facility] [place] [address] Referral ID Status Reason Start Date Expiration Date Visits Requested Visits Authorized [id number] Authorized Auto-Generat ed Referral 4 06/05/2025 1 1 * Diagnostic Procedure Only (Routine) - New Request Specialty Diagnoses / Procedures Referred By Contshawna t Referred To Contact [facility] Diagnoses with uncertain dates in first trimester Procedures OBSTETRIC ULTRASOUND WHI US PREG UTERUS AFTER 1ST TRIMEST GESTATION Suhail Swift APRN.CNP [address] [place] [address] [facility] [place] [address] Referral ID Status Reason Start Date Expiration Date Visits Requested Visits Authorized [id number] New Request Auto-Generat ed Referral 4 06/05/2025 1 1 [facility] N[facility]ative* Consult, Test, Treat (Routine) - Authorized Specialty Diagnoses / Procedures Referred By Contac t Referred To Contact Dermatology Physician / PRIVATE INQUIRY AGENT Diagnoses Encounter for supervision of normal first (HCC) OB Routine Procedures OFFICE/OUTPATIENT EST PT MAY NOT REQ PHYS/QHP OFFICE/OUTPATIENT ESTABLISHED HIGH MDM 40 MIN EST WHI OB Suhail Swift APRN.CNP [address] [place] [address] Phone: tel: fax: Tim Neal MD [address] [place] [address] Phone: tel: fax:[phone] Referral ID Status Reason Start Date Expiration Date V isits Requested Visits Authorized [id number] Authorized 06/26/2024 06/06/2025 99 99 [facility] Summary Purpose Family History No Family History Records FoundNo Family History Records Found Advance Directives No Advanced Directives Records FoundNo Advanced Directives Records Found Additional Source Comments INFORMATION SOURCE (unrecogn ized section and content) DATE CREATED AUTHOR [facility]/09/2024 [facility] DATE CREATED AUTHOR AUTHOR'S ORGANIZ ATION 11/30/2024 [facility] Source Comments (unrecognize d section and content) In the event this informatio n is protected by the Federal Confidentiality of Alcohol and Drug Abuse Patient Records regulations: The Federal rules restrict any use of the information to criminally investigate or prosecute any alcohol or drug abuse patient.[facility] the event this information is protected by the Federal Confidentiality of Alcohol and Drug Abuse Patient Records regulations: The Federal rules restrict any use of the information to criminally investigate or prosecute any alcohol or drug abuse patient.[facility] HospitalIn the event this information is protected by the Federal Confidentiality of Alcohol and Drug Abuse Patient Records regulations: The Federal rules restrict any use of the information to criminally investigate or prosecute any alcohol or drug abuse patient.[facility] HospitalIn the event this information is protected by the Federal Confidentiality of Alcohol and Drug Abuse Patient Records regulations: The Federal rules restrict any use of the information to criminally investigate or prosecute any alcohol or drug abuse patient.[facility] HospitalIn the event this information is protected by the Federal Confidentiality of Alcohol and Drug Abuse Patient Records regulations: The Federal rules restrict any use of the information to criminally investigate or prosecute any alcohol or drug abuse patient.[facility] HospitalIn the event this information is protected by the Federal Confidentiality of Alcohol and Drug Abuse Patient Records regulations: The Federal rules restrict any use of the information to criminally investigate or prosecute any alcohol or drug abuse patient.[facility] the event this information is protected by the Federal Confidentiality of Alcohol and Drug Abuse Patient Records regulations: The Federal rules restrict any use of the information to criminally investigate or prosecute any alcohol or drug abuse patient.[facility]In the event this information is protected by the Federal Confidentiality of Alcohol and Drug Abuse Patient Records regulations: The Federal rules restrict any use of the information to criminally investigate or prosecute any alcohol or drug abuse patient.[facility] the event this information is protected by the Federal Confidentiality of Alcohol and Drug Abuse Patient Records regulations: The Federal rules restrict any use of the information to criminally investigate or prosecute any alcohol or drug abuse patient.[facility] the event this information is protected by the Federal Confidentiality of Alcohol and Drug Abuse Patient Records regulations: The Federal rules restrict any use of the information to criminally investigate or prosecute any alcohol or drug abuse patient.[facility]In the event this information is protected by the Federal Confidentiality of Alcohol and Drug Abuse Patient Records regulations: The Federal rules restrict any use of the information to criminally investigate or prosecute any alcohol or drug abuse patient.[facility]In the event this information is protected by the Federal Confidentiality of Alcohol and Drug Abuse Patient Records regulations: The Federal rules restrict any use of the information to criminally investigate or prosecute any alcohol or drug abuse patient.[facility]In the event this information is protected by the Federal Confidentiality of Alcohol and Drug Abuse Patient Records regulations: The Federal rules restrict any use of the information to criminally investigate or prosecute any alcohol or drug abuse patient.[facility] HospitalIn the event this information is protected by the Federal Confidentiality of Alcohol and Drug Abuse Patient Records regulations: The Federal rules restrict any use of the information to criminally investigate or prosecute any alcohol or drug abuse patient.[facility] Reason for Visit (unrecogniz ed section and content) Reason Onset Date Comments Care 12/13/2024 Specialty Diagnoses / Procedures Referred By Tracee kuo Referred To Contact Dermatology Physician / PRIVATE INQUIRY AGENT Diagnoses Encounter for supervision of normal first (HCC) OB Routine Procedures OFFICE/OUTPATIENT EST PT MAY NOT REQ PHYS/QHP OFFICE/OUTPATIENT ESTABLISHED HIGH MDM 40 MIN EST WHI Suhail Solis APRN.SHREDDER TENDER PEAT [address] [place] [address] Phone: tel: fax: Tim Neal MD [address] [place] [address] Phone: tel: fax: Referral ID Status Reason Start Date Expiration Date V isits Requested Visits Authorized [id number] Authorized 06/26/2024 06/06/2025 99 99 Reason Onset Date Comments Care 12/12/2024 Specialty Diagnoses / Procedures Referred By Tracee kuo Referred To Contact Dermatology Physician / PRIVATE INQUIRY AGENT Diagnoses Encounter for supervision of normal first (HCC) OB Routine Procedures OFFICE/OUTPATIENT EST PT MAY NOT REQ PHYS/QHP OFFICE/OUTPATIENT ESTABLISHED HIGH MDM 40 MIN EST WHSuhail Lovell APRN.SHREDDER TENDER PEAT [address] [place] [address] Phone: tel: fax: Tim Neal MD [address] [place] [address] Phone: tel: fax: Referral ID Status Reason Start Date Expiration Date V isits Requested Visits Authorized [id number] Authorized 06/26/2024 06/06/2025 99 99 Reason Onset Date Comments Care 10/12/2024 Reason Comments Initial OB Visit Reason Onset Date Comments Care 07/04/2024 Reason Onset Date Comments Care 08/24/2024 Specialty Diagnoses / [facility] To Contact Dermatology Physician / PRIVATE INQUIRY AGENT Diagnoses Encounter for supervision of normal first OB Routine Procedures OFFICE/OUTPATIENT EST PT MAY NOT REQ PHYS/QHP OFFICE/OUTPATIENT ESTABLISHED HIGH MDM 40 MIN EST WHI OB Suhail Swift APRN.DOREEN [address] [place] [address] Phone: tel: fax: Tim Neal MD [address] [place] [address] Phone: tel: fax: Reason Comments US Specialty Diagnoses / Procedures Referred By Tracee t Referred To Contact [facility] Diagnoses with uncertain dates in first trimester Procedures OBSTETRIC ULTRASOUND WHI US PREG UTERUS AFTER 1ST TRIMEST GESTATION Suhail Swift APRN.SHREDDER TENDER PEAT [address] [place] [address] Phone: tel: fax: [facility] [address] [place] [address] Referral ID Status Reason Start Date Expiration Date V isits Requested Visits Authorized [id number] Closed Auto-Generate d Referral 06/05/2024 06/05/2025 1 1 Reason Onset Date Comments Care 09/22/2024 Specialty Diagnoses / Procedures [facility] To Contact [facility] Diagnoses Encounter for supervision of normal first in third trimester (HCC) 30 weeks gestation of (HCC) Uterine size-date discrepancy, third trimester (HCC) Procedures OBSTETRIC ULTRASOUND WHI US PREG UTERUS AFTER 1ST TRIMEST GESTATION Tim Neal MD [address] [place] [address] Phone: tel: fax: [address] [phone] Referral ID Status Reason Start Date Expiration Date V isits Requested Visits Authorized [id number] Closed Auto-Generate d Referral 10/26/2024 10/26/2025 1 1 Reason Onset Date Comments Care 11/27/2024 Specialty Diagnoses / Procedures Referred By Tracee t Referred To Contact Dermatology Physician / PRIVATE INQUIRY AGENT Diagnoses Encounter for supervision of normal first ([facility]) OB Routine Procedures OFFICE/OUTPATIENT EST PT MAY NOT REQ PHYS/QHP OFFICE/OUTPATIENT ESTABLISHED HIGH MDM 40 MIN EST WHI OB Suhail Swift APRN.SHREDDER TENDER PEAT [address] [place] [address] Phone: tel: fax: Tim Neal MD [address] [place] [address] Phone: tel: fax: Specialty Diagnoses / Procedures Referred By Tracee kuo Referred To Contact [facility] Diagnoses with uncertain dates in first trimester ([facility]) Procedures NUCHAL TRANSLUCENCY WHI US NUCHAL TRANSLUCENCY 1ST GESTATION Suhail Swift APRN.SHREDDER TENDER PEAT [address] [place] [address] Phone: tel: fax: [address] [phone] Referral ID Status Reason Start Date Expiration Date V isits Requested Visits Authorized [id number] Closed Auto-Generate d Referral 06/05/2024 06/05/2025 1 [...] BE BASED ON THE PRIMARY CLINICAL RECORDS. [employer] provides no warranty or guarantee of the accuracy or completeness of information in this document.
[2024-12-14 22:55] VITALS: BP 135/84; PULSE 51; RESP 16; TEMP 36.8
[2024-12-15] VITALS (28 sets, daily range): BP systolic 87–151; BP diastolic 66–92; PULSE 47–78; RESP 15–16; TEMP 36.1–37.3; O2SAT 92–100
[2024-12-15] MEDS: Lactated Ringers 1,000 ML 999 ML IV ×2 (05:13→09:21)
--- NOTE | 2024-12-15 07:01 | PCM.PN.CNM ---
Subjective Subjective Patient seen at bedside. Resting throughout the night. Feeling some cramps but not much pain. Objective Data Objective Data Vital Signs: Vital Signs Temp Pulse Resp BP Pulse Ox 98.4 F 60 16 121/78 H 97 12/15/24 03:02 12/15/24 03:04 12/15/24 03:04 12/15/24 03:04 12/14/24 21:22 Weight: 126 lb 12.8 oz Body Mass Index (BMI) 23.1 Lab / Micro Data 12/14/24 21:50 Labs: Laboratory Results - last 24 hr 12/14/24 21:50: WBC 9.2, RBC 4.03 L, Hgb 12.9, Hct 35.6 L, MCV 88.3, MCH 32.0, MCHC 36.2 H, RDW Std Deviation 39.8, RDW Coeff of Tia 12.4, Plt Count 215, MPV 11.2, Immature Gran % (Auto) 0.300, Neut % (Auto) 57.2, Lymph % (Auto) 34.8, Merrick % (Auto) 6.8, Eos % (Auto) 0.7, Baso % (Auto) 0.2, Absolute Neuts (auto) 5.3, Absolute Lymphs (auto) 3.21, Nucleated RBC % 0, Syphilis Total Ab Nonreactive, Blood Type O NEGATIVE, Antibody Screen NEGATIVE ROS Eyes Eyes: Denies blurry vision Cardiovascular Cardiovascular: Reports none; Denies chest pain at rest, chest pain with activity or dizziness Respiratory/Chest Respiratory/Chest: Denies cough or dyspnea Gastrointestinal Gastrointestinal: Reports none and other; Denies diarrhea or vomiting Genitourinary Genitourinary: Denies dysuria Musculoskeletal Musculoskeletal: Reports none Integumentary Integumentary: Reports none; Denies rash Neurologic Neurologic: Denies dizziness, headache(s) or other visual disturbances Psychiatric Psychiatric: Reports none Physical Exam Const alert and no apparent distress General Appearance: cooperative Orientation / Consciousness: awake Exam Limitations: no limitations HEENT normocephalic Eyes General Eye: normal appearance of both eyes Neck full ROM Chest inspection of chest normal Resp normal respiratory effort and normal air movement Effort and Inspection: symmetric chest movement Auscultation: clear to auscultation bilaterally Cardio regular rate GI soft to palpation, non-tender and non-distended Inspection: and other Back/Spine normal ROM Extremity full ROM, normal capillary refill and no calf tenderness Skin no rashes or lesions noted Neuro oriented x3 and CN's II-XII intact bilaterally Psych mental status grossly normal Assessment & Plan (1) Rh negative status during : (2) Anxiety and depression: (3) IUGR, : COMMENT: EFW 2% and AC <1% (4) Encounter for induction of labor: (5) 37 weeks gestation of : (6) GBS bacteriuria: PLAN: Plan CE closed/posterior Per nursing, vaginal exams are very difficult. Patient unable to keep herself on bed during exam due to pain Had discussion with patient and plan of care made- Patient will eat light breakfast and then get epidural later this morning in order for provider to place rodriguez bulb Support given Nursing updated on plan of care
--- NOTE | 2024-12-15 09:43 | PCM.PN.BLA ---
Progress Note patient with IUGR here for IOL- has CAT 2 FHR tracing- unable to start Pitocin or begin IOL. Plan for Primary cs.
[2024-12-15] MEDS: Cefazolin 2 GM in 0.9% Normal Saline (100mL Bag) 100 ML IV (09:57)
[2024-12-15] MEDS: Lactated Ringers 1,000 ML 100 ML IV (10:45)
[2024-12-15] MEDS: Oxytocin 15 Units/NS 250ml 15 UNITS/250 ML IV.SOLN 83 UNITS IV (10:45)
--- NOTE | 2024-12-15 11:00 | OP.PCM_ITS ---
Maternal Data Information DEYANIRA Calculator Estimated Delivery Date Method Current WG Current Estimate 01/04/25 Manual 37w 1d Operative Report (OB) Details Procedure Type: low transverse Date of Procedure: 12/15/24 Procedure Start Time: : Procedure Stop Time: : Time of Delivery: 10:08 Pre-Operative Diagnosis: Distress and Other Other Pre-Operative diagnosis: IUGR Post-Operative Diagnosis: Same as Pre-operative diagnosis Classification: LUCIA Type of Anesthesia: Spinal Antibiotic Given: Ancef 2 grams IV x1 Drain: Soto to straight drain Estimated Blood Loss: 500 Fluids Replaced: 800 Findings Description of surgery: Fetus with category 2 FHR- IUGR, unable to start IOL. After informed consent was obtained the patient was taken the operating room she was given spinal anesthesia. She was then placed in the supine position. She was prepped and draped in the normal sterile fashion. Anesthesia was found to be adequate. At this time a Pfannenstiel skin incision was made with a knife was carried down to the underlying layer of the fascia. The fascial incision was then extended laterally using gutierrez scissor. Attention was then turned to the superior aspect of the fascial edge was grasped with 2 straight Mariella clamps tented up and the rectus muscle dissected off sharply. Rectus muscles were then in the midline bluntly and peritoneum was entered bluntly. Gentle opposing traction was placed. At this time the vesicouterine peritoneum was identified. Scalpel was used to make a uterine incision in a low transverse fashion. The uterus was then entered bluntly gentle opposing traction was placed to extend this incision. Membranes were ruptured clear. Infant's head was brought to the uterine incision was delivered atraumatically. 3 tight Nuchal cords noted- cord was clamped and cut to allow delivery of . was vigorous at delivery.. Cord was clamped and cut was handed to the waiting nursery team. The Placenta was removed from the uterus. The uterus was then removed from the abdominal cavity. The uterus was cleared of all clots and debris using a lap. At this time the uterine incision was reapproximated using #1 Vicryl in a running locked fashion. Hemostasis was appreciated. Posterior cul-de-sac was then cleared of all clots and debris. Uterus was placed back in the abdominal cavity. Gutters were cleared of all clots and debris. Uterine incision was reevaluated and noted to be of excellent hemostasis. At this time the peritoneum was grasped with Kellys reapproximated using #2 Vicryl suture in a running fashion. Fascia was then reapproximated using #1 Vicryl in a running fashion. Subcu layer was irrigated with NS. . Subcu layer was closed using 4-0 Viryl in a subcu fashion. Dry sterile dressing was applied. Instrument lap needle count correct ?2. Anticipated normal postoperative course. Surgical findings: normal tubes and ovaries bilaterally Presentation: Vertex Amniotic Membrane Rupture Type: Artificial Amniotic Fluid Description: Clear Placental Delivery Description: Expressed Placenta Disposition: Sent to Pathology Specimen collected: Yes Description of specimen(s) removed: placenta Cord Vessel Description: 3 Vessels Cord Entanglement: Other (around neck x3 tight ) Nuchal Cord Compression: With compression A gender: Female (1 minute): 8 (5 minute): 8 Delayed Cord Clamping: No Pallet Repairer restorative coordinator: Yes Melter Supervisor Electric Arc Furnace: Tiana Irving Tasks completed by pharmacy affairs assistant: Opening & closing and Retracting Complications Complications: No
[2024-12-15] MEDS: Ketorolac 30 MG/ML Syringe IV ×2 (12:13→18:13)
[2024-12-15] MEDS: 0.9% Saline Lock 10 ML Syringe IV ×2 (18:18→23:20)
[2024-12-15] MEDS: Rho(D) Immune Globulin 300 MCG (1500 Unit) Syringe IV (23:18)
[2024-12-16] MEDS: 0.9% Saline Lock 10 ML Syringe IV (00:27)
[2024-12-16] MEDS: Ketorolac 30 MG/ML Syringe IV ×2 (00:27→06:00)
[2024-12-16 04:17] VITALS: BP 112/79; PULSE 54; RESP 14; TEMP 36.7; O2SAT 95
[2024-12-16 06:19] LABS: Hematocrit 30.9 % (37-47); Hemoglobin 10.9 g/dL (12.0-15.0); Mean Corp Hgb Conc 35.3 g/dL (32-36); Mean Corpuscular Volume 90.9 fL (81-99); Mean Platelet Vol. 10.9 fl (6.2-12.0); Platelet Count 143 K/mm3 (150-450); RBC Distribution Width CV 12.5 % (11.6-14.6); RBC Distribution Width SD 41.0 fl (35.1-43.9); Red Blood Count 3.40 M/mm3 (4.2-5.4); White Blood Count 9.4 K/mm3 (4.4-11.0)
[2024-12-16 07:30] VITALS: BP 110/82; PULSE 54; RESP 16; TEMP 36.2; O2SAT 98
[2024-12-16] MEDS: Senna/Docusate Sodium 1 Tablet PO (09:38)
--- NOTE | 2024-12-16 10:49 | PCM.PN.OB ---
Subjective Subjective Doing well per patient and nursing staff. Ambulating and taking PO without difficulty. Voiding and passing flatus. Pain controlled. , services for assistance. Denies headache, visual changes, chest pain, shortness of breath, leg pain or increased bleeding. Lochia normal. Objective Data Objective Data Vital Signs: Vital Signs Temp Pulse Resp BP Pulse Ox O2 Del Method 97.1 F L 54 L 16 110/82 H 98 Room Air 12/16/24 07:30 12/16/24 07:30 12/16/24 07:30 12/16/24 07:30 12/16/24 07:30 12/16/24 07:30 Oxygen Delivery Method Room Air Weight: 126 lb 12.8 oz Body Mass Index (BMI) 23.1 Intake & Output: Intake and Output for Last 24 Hours 12/14/24 12/15/24 12/16/24 23:59 23:59 23:59 Intake Total 3250 / 3250 Output Total 1999 / 1999 Balance 1250 / 1250 Lab / Micro Data 12/16/24 06:00 Labs: Laboratory Results - last 24 hr 12/15/24 12:05: Screen NEGATIVE, Baby's Blood Type O POSITIVE, Baby's DIGNA NEGATIVE 12/16/24 06:00: WBC 9.4, RBC 3.40 L, Hgb 10.9 L, Hct 30.9 L, MCV 90.9, MCH 32.1 H, MCHC 35.3, RDW Std Deviation 41.0, RDW Coeff of Tia 12.5, Plt Count 143 L, MPV 10.9 ROS Constitutional Constitutional: Reports systems reviewed and no addt'l complaints, except as documented; Denies headache(s) Eyes Eyes: Denies acute decrease in peripheral vision, blurry vision or change in vision ENT HEENT: Reports systems reviewed and no addt'l complaints, except as documented Cardiovascular Cardiovascular: Denies chest pain or dizziness Respiratory/Chest Respiratory/Chest: Denies cough, dyspnea, dyspnea on exertion, shortness of breath at rest or shortness of breath with exertion Gastrointestinal Gastrointestinal: Denies abdominal pain, diarrhea, nausea or vomiting Genitourinary Genitourinary: Denies abdominal discomfort Musculoskeletal Musculoskeletal: Denies limited range of motion Integumentary Integumentary: Reports systems reviewed and no addt'l complaints, except as documented Neurologic Neurologic: Reports systems reviewed and no addt'l complaints, except as documented Psychiatric Psychiatric: Reports systems reviewed and no addt'l complaints, except as documented Endocrine Endocrinology: Reports systems reviewed and no addt'l complaints, except as documented Hematologic/Lymphatic Hematologic/Lymphatic: Reports systems reviewed and no addt'l complaints, except as documented Allergic/Immunologic Allergic/Immunologic: Reports systems reviewed and no addt'l complaints, except as documented Physical Exam Const alert and oriented x3 General Appearance: cooperative Orientation / Consciousness: awake, oriented to person, oriented to place and oriented to time Exam Limitations: no limitations HEENT normocephalic Head and Scalp: normal to inspection, normocephalic and atraumatic Face and Sinus: normal facial exam Eyes General Eye: normal appearance of both eyes Neck full ROM Chest Chest: symmetrical chest wall rise Resp normal respiratory effort and normal air movement Auscultation: clear to auscultation bilaterally Cardio regular rate, regular rhythm, S1 normal heart sound, S2 normal heart sound, no murmurs, no rub, no gallops and no clicks GI normal to inspection, nondistended, normoactive bowel sounds and non-tender GI Narrative: Fundus firm 2 below U appearance of the vagina normal Narrative: Normal lochia rubra Bladder / Kidney Exam: no CVA tenderness Back/Spine normal ROM Extremity normal to inspection and full ROM Skin no rashes or lesions noted Neuro oriented x3, CN's II-XII intact bilaterally and moves all extremities Sensorium / Orientation: awake, alert and oriented to person Motor Exam: clonus absent Deep Tendon Reflexes: Rt Patellar (L4): 2+ and Lt Patellar (L4): 2+ Assessment & Plan (1) Delivery by section: PLAN: Plan 1) Routine POD#1 LTCS 2) Vitals stable 3) I&O 4) Pain management 5) services PRN 6) Planning D/C home tomorrow
[2024-12-16 12:50] VITALS: BP 128/82; PULSE 56; RESP 16; TEMP 36.6; O2SAT 97
[2024-12-16 16:35] VITALS: BP 122/89; PULSE 60; RESP 16; TEMP 36.7; O2SAT 98
[2024-12-16 20:16] VITALS: BP 127/89; PULSE 58; RESP 16; TEMP 36.4; O2SAT 98
[2024-12-17 04:56] VITALS: BP 135/80; PULSE 51; RESP 14; TEMP 36.4; O2SAT 98
[2024-12-17 08:14] VITALS: BP 127/82; PULSE 58; RESP 16; TEMP 36.6; O2SAT 98
--- NOTE | 2024-12-17 09:45 | PCM.PN.OB ---
Subjective Subjective Doing well per patient and nursing staff. Ambulating and taking PO without difficulty. Voiding and passing flatus. Pain controlled. , services for assistance. Denies headache, visual changes, chest pain, shortness of breath, leg pain or increased bleeding. Lochia normal. Objective Data Objective Data Vital Signs: Vital Signs Temp Pulse Resp BP Pulse Ox O2 Del Method 97.8 F 58 L 16 127/82 H 98 Room Air 12/17/24 08:14 12/17/24 08:14 12/17/24 08:14 12/17/24 08:14 12/17/24 08:14 12/17/24 08:14 Oxygen Delivery Method Room Air Weight: 126 lb 12.8 oz Body Mass Index (BMI) 23.1 Intake & Output: Intake and Output for Last 24 Hours 12/15/24 12/16/24 12/17/24 23:59 23:59 23:59 Intake Total 3250 / 3250 Output Total 1999 / 1999 Balance 1250 / 1250 Lab / Micro Data 12/16/24 06:00 ROS Constitutional Constitutional: Reports systems reviewed and no addt'l complaints, except as documented; Denies headache(s) Eyes Eyes: Denies acute decrease in peripheral vision, blurry vision or change in vision ENT HEENT: Reports systems reviewed and no addt'l complaints, except as documented Cardiovascular Cardiovascular: Denies chest pain or dizziness Respiratory/Chest Respiratory/Chest: Denies cough, dyspnea, dyspnea on exertion, shortness of breath at rest or shortness of breath with exertion Gastrointestinal Gastrointestinal: Denies abdominal pain, diarrhea, nausea or vomiting Genitourinary Genitourinary: Denies abdominal discomfort Musculoskeletal Musculoskeletal: Denies limited range of motion Integumentary Integumentary: Reports systems reviewed and no addt'l complaints, except as documented Neurologic Neurologic: Reports systems reviewed and no addt'l complaints, except as documented Psychiatric Psychiatric: Reports systems reviewed and no addt'l complaints, except as documented Endocrine Endocrinology: Reports systems reviewed and no addt'l complaints, except as documented Hematologic/Lymphatic Hematologic/Lymphatic: Reports systems reviewed and no addt'l complaints, except as documented Allergic/Immunologic Allergic/Immunologic: Reports systems reviewed and no addt'l complaints, except as documented Physical Exam Const alert and oriented x3 General Appearance: cooperative Orientation / Consciousness: awake, oriented to person, oriented to place and oriented to time Exam Limitations: no limitations HEENT normocephalic Head and Scalp: normal to inspection, normocephalic and atraumatic Face and Sinus: normal facial exam Eyes General Eye: normal appearance of both eyes Neck full ROM Chest Chest: symmetrical chest wall rise Resp normal respiratory effort and normal air movement Auscultation: clear to auscultation bilaterally Cardio regular rate, regular rhythm, S1 normal heart sound, S2 normal heart sound, no murmurs, no rub, no gallops and no clicks GI normal to inspection, nondistended, normoactive bowel sounds and non-tender GI Narrative: Fundus firm 2 below U appearance of the vagina normal Narrative: Normal lochia rubra Bladder / Kidney Exam: no CVA tenderness Back/Spine normal ROM Extremity normal to inspection and full ROM Skin no rashes or lesions noted Neuro oriented x3, CN's II-XII intact bilaterally and moves all extremities Sensorium / Orientation: awake, alert and oriented to person Motor Exam: clonus absent Deep Tendon Reflexes: Rt Patellar (L4): 2+ and Lt Patellar (L4): 2+ Assessment & Plan (1) Delivery by section: PLAN: Plan 1) Routine care, POD #2 2) Vitals signs stable 3) Pain controlled 4) , services PRN 5) D/C home 6) Follow up in 2 weeks and 6 weeks
--- NOTE | 2024-12-17 09:46 | PCM.DC.SUM ---
Providers Date of Admission: 12/14/24 Primary Care Physician: Dr. Lynda Wild MD Reason For Visit: PRIMAY Diagnosis Discharge Diagnosis (1) Delivery by section: Status: Acute Plan 1) Routine care, POD #2 2) Vitals signs stable 3) Pain controlled 4) , services PRN 5) D/C home 6) Follow up in 2 weeks and 6 weeks Medications at Discharge Home Medications famotidine 20 mg tablet 40 mg PO QDAY indigestion 03/20/24 sertraline 50 mg tablet 50 mg PO QDAY depression 03/20/24 Hospital Course Summary of Care Provided Minutes Spent on Discharge: 15 Hospital Course: Presented on 12/15/24 for induction of labor due to FGR. intolerance of labor and primary low transverse section completed. course uncomplicated. D/C home on postoperative day #2 Weight / BMI Weight Weight: 126 lb 12.8 oz Body Mass Index (BMI) 23.1 ABG / Lab / Microbiology Data 12/16/24 06:00 D/C Instructions Discharge Activity: Return to Normal Activity, May Drive, May Shower and May Take a Tub Bath May resume sexual activity in: 6 weeks Weight Bearing Status: Full weight bearing Call your doctor if you observe: Fever of 101 or Higher, Inability to urinate, Using more than 1 pad per hour, Shortness of breath, Chest pain, Increased palpitations (irregular heartbeat), Calf discomfort and Uncontrolled pain DC O2, CPAP, BIPAP Needs Home O2 Discharge instructions: No Please Follow Up With: Yisel Puga CNM When: 2 week virtual visit and 6 week visit Meaningful Use Info Meaningful Use Meaningful Use Diagnoses (Choose all that apply): None applicable Discharge Plan Admission Admit Date/Time: 12/14/24 21:05 Attending Provider: Ivania Lilly Primary Care Provider: Lynda Wild Discharge Orders/Prescriptions Prescriptions: No Action sertraline 50 mg tablet 50 mg PO QDAY famotidine 20 mg tablet 40 mg PO QDAY Referrals / Follow Up: Lynda Wild MD [Primary Care Provider] -
[2024-12-17] MEDS: Senna/Docusate Sodium 1 Tablet PO (10:26)
--- NOTE | 2024-12-17 11:00 | CASEMGMT ---
Social Work Assessment Labor and Delivery Unit Patient Address: [address] [place] [address] Phone number: [phone] Date of Referral: 12/16/2024 Time of Referral: 08:55 Referred By: Ivania Lilly Date of Intervention: 12/17/24 Time of Intervention: 11:01 Reason for Referral: Mental Health History obtained from: Medical records, mother of baby (MOB) and father of baby (FOB).? Household composition: MOB, FOB (Tung, age 25) and daughter Azalia, born on 12/15/24. ? Patient's parent/guardian status: MOB and FOB have been together for a little over a year and a half. When social media marketing manager asked how long they have been , the FOB spoke up said they were immediately engaged when they met which is how it is with their thierry and did not give a specific amount of time they have been legally . ?MOB reported she and the FOB met through a restorationist function. MOB grew up in [place], which is where all of MOB?s family still lives and moved to [place] to be with MOB?s now . ??MOB denied any previous or current issues of domestic violence and described a positive relationship with the FOB. MOB and FOB both denied having any other children. Medical History: : 1, Para, now 1. MOB received care (PNC) through [facility] beginning at 13 weeks and 5 days. In reviewing medical records, it was difficult to see if visits were routine or not. Apgars: 8 and 8. Weight: 1775 g. Division Controller: Dr. Alcaraz. Educational Status: MOB and FOB denied any issues with reading, writing or learning comprehension. MOB reported she completed the 12th grade however denied ever having received a diploma. FOB reported he earned a bachelor?s degree in engineering. Financial Status: MOB and FOB reported that their income is sufficient to meet the needs of their family at this time. MOB is not employed and has plans to be a [id number] mom (SAHM). The FOB is currently employed full-time as an mechanical maintenance engineer. Supplies: MOB and FOB reported they have the supplies they need for baby at this time including but not limited to: Car seat, bassinet, crib, diapers, bottles, breast pump and clothing. Childcare/Caregiver(s): MOB reported that as a SAHM, she will be the primary caregiver for and the FOB will also help provide care during the times he is home. Transportation: Both MOB and FOB are licensed drivers and have a reliable vehicle to get baby to and from all medical appointments. MOB and FOB denied any issues/barriers to transportation at this time. Programs/Agencies Involved: MOB and FB denied ant previous or current agency involvement. Children Services/Legal Issues: MOB and FOB denied any history of Children Services involvement. MOB and FOB denied any previous or current legal involvement. Behavioral Health Issues:? Mental Health History: ?MOB has a history of anxiety and depression and is on medication which MOB stated is effective in managing symptoms. Medication is prescribed by MOB?s primary care physician. FOB denied any history of mental health. ?Substance Use History:?? MOB and FOB denied any previous or current drug or alcohol abuse. ?Family History:?? MOB and FOB denied any family history on either side of mental health or drug or alcohol abuse. ?Drug Screens:? None were obtained for the MOB or during this admission. ?Plant Safety Leader administered the Connell Depression Scale (EPDS) alone with the FOB not in the room.? MOB?s score was a 3. Plant Safety Leader educated the MOB about the results of her score as well as what to look out for should there be any other times this assessment is completed with her which MOB verbalized she understood. Family/Social Stressors:?? Denied. Support Systems:? MOB identified her biggest support as the FOB, and ?s maternal grandmother (MGM) and paternal grandmother (PGM). MOB reported ?s MGM is currently in town to provide support. Depression/Shaken Baby/Safe Sleeping: Plant Safety Leader provided verbal and written education on PPD, increased risk factors for PPD, Safe Sleeping and Shaken Baby.? MOB and FOB both verbalized an understanding.??? ASSESSMENT: MOB and FOB provided consent to social work visit. Upon arrival, the MOB was sitting upright in the hospital bed, providing skin to skin to and the FOB was sitting nearby. Both MOB and FOB were verbally engaged and cooperative. Both denied any current concerns/stressors/needs. MOB appeared to be attached and bonded to and was observed to be very gentle and attentive to newborns needs. MOB did present with a very flat affect.?? At the end of the assessment, Plant Safety Leader requested to speak with the MOB alone, which both the MOB and the FOB were agreeable to. MOB reported feeling safe in her home and denied any previous or current domestic violence, unmanaged mental health issues either with herself or with the FOB and also denied any concerns with drug or alcohol abuse either with herself or with the FOB as well as any unmanaged mantal health concerns. Safe Plan of Care for related to substance use: Not needed at this time. PLAN: For MOB and baby to be discharged when medically ready. No other services requested or indicated. Genevieve Shepard, INSPECTOR PACKER GLASS CONTAINER, INDUSTRIAL TRAINING SPECIALIST
[2024-12-17 13:42] VITALS: BP 128/89; PULSE 62; RESP 16; TEMP 36.2; O2SAT 98
== END 2024-12-17 15:10 | disposition home or self-care (01) | DRG 787 ==
PROVIDERS: Advanced Practice Midwife; Admitting Provider Obstetrics & Gynecology; PCP Family Medicine; Referring Provider Obstetrics & Gynecology; Visit Provider Obstetrics & Gynecology
DX: O36.5930 Maternal care for other known or suspected poor fetal growth, third trimester, not applicable or unspecified (principal); O98.82 Other maternal infectious and parasitic diseases complicating childbirth; O77.9 Labor and delivery complicated by fetal stress, unspecified; F32.A Depression, unspecified; F41.9 Anxiety disorder, unspecified; K21.9 Gastro-esophageal reflux disease without esophagitis; B95.1 Streptococcus, group B, as the cause of diseases classified elsewhere; O99.344 Other mental disorders complicating childbirth; Z37.0 Single live birth; Z3A.37 37 weeks gestation of pregnancy; O99.62 Diseases of the digestive system complicating childbirth; O69.1XX0 Labor and delivery complicated by cord around neck, with compression, not applicable or unspecified
CPT/HCPCS: 59025; 59050; 85025; 85027; 85461; 86780; 86850; 86900; 86901; 90384; 99221; A4216; G0378; J2405; J2790; J2791